=== PATIENT | male | born 1965 | race Caucasian/White ===

== ENCOUNTER 2018-03-08 16:41 | Inpatient (IN) ==
[2018-03-08] MEDS ORDERED: Naloxone 0.4 MG/ML INJ IVP PRN (20:57)
[2018-03-08] MEDS ORDERED: D5% in Water 1,000 ML IVC PRN (21:08)
[2018-03-08] MEDS ORDERED: *HR* Dextrose 50 % in Water (Syg) 50 ML SYRINGE IVP PRN (21:08)
[2018-03-08] MEDS ORDERED: Dextrose Gel 15 GM/37.5 ML TUBE PO PRN ×2 (21:08)
[2018-03-08] MEDS ORDERED: 0.9 % Sodium Chloride 1,000 ML IVC ONE (21:16)
--- NOTE | 2018-03-08 21:17 | Internal Med History&Physical ---
Date of Encounter: 03/08/18 Time of Encounter: 20:20 Internal Medicine - H&P: HPI Chief complaint: Chest pain Admitted From: Hospital to Hospital Transfer Plans for Post Hospital Care: Home History of present illness: Mr. Tariq is a 53 year old male Patient presented to [place] emergency room via ambulance after experiencing left-sided chest pain radiation to the left shoulder and neck. He states that he was working on his son's camper when he bent over to greens picker some wood after he stood up he felt dizzy, felt like his heart was racing he is not sure if he passed out but he did end up on the ground. He called the ambulance who came proximally 25 minutes later. When they arrived they found him laying in the driveway clutching his chest. He got to nitroglycerin tabs en route to the emergency room, patient states that it did help his pain. Of note patient has recent history of left rotator cuff tear status post repair and re-injury. He says he had a recent MRI done that showed some tendons that were torn. He states during this episode today that he fell onto his left shoulder exacerbating his pain. In the emergency room chest x-ray showed no acute process, CT of his cervical spine showed no acute osseous abnormalities, left shoulder x-ray showed no fractures or dislocations, CT brain without contrast showed no acute intracranial abnormalities. EKG was normal sinus rhythm with occasional PVCs with a QTC of 422. CBC was within normal limits BMP showed a BUN of 55, creatinine of 3.18 and a blood sugar of 142. His troponin was less than 0.03. He has a history of SVT, and has seen cardiologists up at [facility]. He is unsure exactly what his cardiac problems are, but did recently see a magazine repairer here at [place] yesterday. He was transferred to [facility] for further workup and management of his chest pain. Currently patient states his chest pain has nearly resolved, stating it is only mild dull pain if at all. His left shoulder still hurts, and he is having difficulty with moving it. He also states that he has a history of lymphoma status post chemotherapy and recently had his port removed. He states his magazine repairer at his appointment yesterday had scheduled an echocardiogram for Wednesday and a stress test for Wednesday. He denies shortness of breath, dizziness, nausea, vomiting, diarrhea but has had constipation for quite some time. He is on chronic pain medication after a work accident several years ago. He has not had a bowel movement in several days. Past Med Surg Social Fam HX - Past Medical History Medical history: arthritis, coronary artery disease, DVT, GERD, hyperlipidemia, kidney stones, osteoporosis, renal disease, thyroid disease, other Additional medical history: hernia Psychiatric history: anxiety, depression - Past Surgical History Surgical History: other Additional surgical history: eye surgery as a child. - Social History Smoking Status: Former smoker Smokeless Tobacco Status: Yes Alcohol use: occasionally Drug use: none - Family History Father Adopted: Yes Mother Family Member Ethnicity: Non- Living Status: Still Living Age at : 47 Cause of : illness Internal Medicine - H&P: Meds Sertraline [Zoloft] 200 mg PO DAILY 03/18/15 [History] Tamsulosin [Flomax] 0.4 mg PO DAILY 03/18/15 [History] Allopurinol [Zyloprim 100 MG] 300 mg PO DAILY 07/25/15 [History] Fenofibrate [Lofibra] 160 mg PO DAILY 07/25/15 [History] Simvastatin [Zocor] 40 mg PO HS 07/25/15 [History] Diclofenac Sodium [Voltaren] 50 mg PO Q8HR #21 tablet. 05/21/17 [Rx] HYDROcodone/Acet 5/325 mg [[place] 5-325 mg] 1 tab PO Q4H PRN #12 tab 05/21/17 [Rx ] HYDROcodone/Acet 7.5/325 mg [[place] 7.5-325 mg] 1 tab PO PRN PRN MDD QID [History] LORazepam [Ativan] 1 mg PO PRN PRN 05/21/17 [History] Metoprolol [Lopressor] 25 mg PO DAILY 05/21/17 [History] Prochlorperazine Maleate [Compazine] 10 mg PO DAILY 05/21/17 [History] SitaGLIPtin [Januvia] 100 mg PO DAILY 05/21/17 [History] Tizanidine HCl [Zanaflex] 4 mg PO TID 05/21/17 [History] 3 Allergy/AdvReac Type Severity Reaction Status Date / Time No Known Allergies Allergy Verified 05/21/17 12:01 All Systems PM: A 10-system review of systems was performed and is negative for pertinent findings except as documented above in the HPI. - Constitutional Vitals: Temp Pulse Resp BP Pulse Ox 98.0 F 77 16 142/81 93 03/08/18 19:37 03/08/18 19:37 03/08/18 19:37 03/08/18 19:37 03/08/18 19:45 General appearance: Present: cooperative, A&O X 3, pleasant, no acute distress, answers questions appropriately Exam: As above - Head Head exam: Present: normal inspection - Eye Eye exam: Present: EOMI, normal appearance - Neck Neck exam general surgery: Present: full ROM - Respiratory Respiratory exam: Present: CTAB. Absent: chest wall tenderness, decreased breath sounds, respiratory distress, wheezes - Cardiovascular Cardiovascular exam: Present: RRR. Absent: bradycardia, diastolic murmur, irregular rhythm, systolic murmur, tachycardia - GI/Abdominal GI/Abdominal exam: Present: normal bowel sounds, soft, tenderness. Absent: distended Additional comments: Mild tenderness upper quadrants - Extremities Exam Extremities exam: Present: warm, radial pulses palpable and symmetrical. Absent : calf tenderness, pedal edema, tenderness Additional comments: Left shoulder tenderness with palpation, decreased range of motion of left shoulder - Neurological Exam Neurological exam: Present: no focal deficits, strengths equal and symetr throughout. Absent: motor sensory deficit, facial droop, speech deficit - Skin Skin exam: Present: dry, normal color, warm - Assessment and plan (1) Chest pain Current Visit: No Status: Acute Assessment and plan: Initial troponin from [place] was undetectable. Currently patient's pain has nearly resolved. Patient does have history of apparently prior [place] and SVT several years ago. Has seen cardiology at [facility], as well as here at [place] with his most recent appointment yesterday. Cardiology notes not available in our system yet however. 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 Qualifiers: Chest pain type: unspecified Qualified Code(s): R07.9 - Chest pain, unspecified (2) Left shoulder pain Current Visit: Yes Status: Acute Assessment and plan: Status post rotator cuff injury and repair and apparently reinjury recently. He states recent MRI showed torn tendons in his left shoulder. Patient also fell on left shoulder during this episode. Pain medication as needed Will likely need orthopedic evaluation outpatient Qualifiers: Qualified Code(s): M25.512 - Pain in left shoulder (3) Diabetes Current Visit: Yes Status: Acute Assessment and plan: History of diabetes, patient takes Januvia as well as insulin 70/30 20u twice a day and insulin sliding scale with meals. 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 Patient has not had bowel movement in several days. MiraLAX with dose of colace tonight. Continue to monitor Qualifiers: Constipation type: unspecified constipation type Qualified Code(s): K59.00 - Constipation, unspecified (5) Acute kidney injury Current Visit: Yes Status: Acute Assessment and plan: No documented history of kidney disease in computer system, patient unsure if he has a kidney problem. GFR, creatinine and BUN within normal limits at his last admission 10 months ago. Patient does have history of rhabdo in the past about 2-1/2 years ago. IV fluid hydration Check CK level. Recheck labs in the morning (6) DVT prophylaxis Current Visit: Yes Status: Acute Assessment and plan: Heparin subcutaneous - Time Spent With Patient Total time spent is greater than 50% in coordination of care (as documented) at patient's floor/unit and/or counseling patient: Greater than 35 minutes
[2018-03-08] MEDS: Insulin DETEMIR 100 UNIT/ML X5UNITS SQ SCH (21:44)
[2018-03-08] MEDS: *HR* OxyCODONE Immed Rel 5 MG TABLET PO PRN (21:45)
[2018-03-08 22:07] LABS: Creatine Kinase 176 Units/L (30-223); Troponin I < 0.03 ng/mL (< 0.04)
[2018-03-08] MEDS: *HR* HYDROcodone/Acet 5/325 mg TABLET PO PRN (23:54)
[2018-03-09] MEDS: Insulin LISPRO 300 UNITS/3 ML VIAL SQ SCH ×4 (01:01→16:58)
[2018-03-09 03:40] LABS: Hematocrit 37.3 % (37.5-50.1); Hemoglobin 12.6 g/dL (12.9-16.9); Mean Corpuscular HGB Conc 33.8 g/dL (31.6-35.5); Mean Corpuscular Hemoglobin 30.7 pg (28.0-33.3); Mean Corpuscular Volume 90.8 fL (83.0-100.0); Mean Platelet Volume 9.9 fL (9.4-12.4); Platelet Count 139 K/mcL (140-400); Red Blood Count 4.11 M/mcL (4.19-5.50); Red Cell Distribution Width 13.6 % (11.5-14.5)
[2018-03-09 03:54] LABS: Potassium 4.7 mEq/L (3.5-5.1)
[2018-03-09] MEDS: *HR* OxyCODONE Immed Rel 5 MG TABLET PO PRN ×3 (04:10→19:23)
[2018-03-09] MEDS: *HR* Heparin 5,000 UNIT/ML VIAL SQ SCH ×2 (05:58→17:13)
[2018-03-09] MEDS: *HR* HYDROcodone/Acet 5/325 mg TABLET PO PRN ×3 (05:59→21:43)
[2018-03-09] MEDS ORDERED: 0.9 % Sodium Chloride 1,000 ML IVC ONE (06:19)
[2018-03-09] MEDS ORDERED: Regadenoson 0.4 MG/5 ML SYRINGE IVP ONE (10:11)
--- NOTE | 2018-03-09 10:24 | Internal Med Progress Note ---
Hospitalist Progress Note - Encounter Date of Encounter: 03/09/18 Time of Encounter: 10:18 - Subjective Interval History: Seen and examined at bedside today, continues to endorse intermittent chest pain with shortness of breath and diaphoresis. Continue with ACS rule out - Exam Vitals: Temp Pulse Resp BP Pulse Ox 97.5 F L 70 18 118/76 96 03/09/18 06:28 03/09/18 06:28 03/09/18 06:28 03/09/18 06:28 03/09/18 06:28 Exam: PHYSICAL EXAMINATION: GENERAL: The patient is an obese male male in no apparent distress. He is alert and oriented x3. HEENT: Head is normocephalic and atraumatic. Extraocular muscles are intact. Pupils are equal, round, and reactive to light and accommodation. NECK: Supple. No carotid bruits. No lymphadenopathy or thyromegaly. LUNGS: Clear to auscultation. HEART: Regular rate and rhythm , S1, S2 without murmur. ABDOMEN: Soft, nontender, and nondistended. Positive bowel sounds. No hepatosplenomegaly was noted. EXTREMITIES: Without any cyanosis, clubbing, rash, lesions or edema. Left shoulder tenderness to palpation, decreased left shoulder and left arm range of motion NEUROLOGIC: Cranial nerves II through XII are grossly intact. SKIN: No ulceration or induration present. - Assessment and Plan (1) Chest pain Current Visit: No Status: Acute Assessment and Plan: Initial troponin from [place] negative, Subsequent troponins as follows; less than 0.032 for 3 total negative troponins CP is described as left sided with radiation to the left neck and left shoulder Associated s/sx include diaphoresis, dyspnea, dizziness, nausea and fatigue CP resolved in ED with Nitro; but has returned and is now 2/10 and intermittent Risk factors include DM, [place] hx, Obesity, HTN, HLD, and family hx As previously follow up with [facility] cardiology for SVT; cardiology available Obtain prior medical records Continue ACS r/o Obtain TTE Stress test pending completion Continue NPO (2) Acute kidney injury Current Visit: Yes Status: Acute Assessment and Plan: NANCY, etiology unclear, no prior h/o renal disease, consider dehydration, improving with IVF, continue IVF CK WNL (3) Constipation Current Visit: Yes Status: Acute Assessment and Plan: docusate BID (4) Diabetes Current Visit: Yes Status: Acute Assessment and Plan: PER HX controlled continue LSSIC (5) Left shoulder pain Current Visit: Yes Status: Acute Assessment and Plan: s/p fall; fell to left shoulder; h/o recent shoulder surgery for rotator cuff repair per patient imaging from [facility] without fracture continues to have pain; treat with NSAIDS ROM diminished but he reports this as chronic If pain persists or worsens consider MRI imaging for further evaluation; conservative treatment for now DVT Prophylaxis: SC Heparin - Time Spent with Patient Total time spent is greater than 50% in coordination of care (as documented) at patient's floor/unit and/or counseling patient: less than 15 minutes Plan of Care Discussed with: patient Internal Medicine: Result - Labs CBC & Chem 7: 03/09/18 03:16 03/09/18 03:16 Labs: Short CBC 03/09/18 Range/Units 03:16 WBC 5.2 (4.3-11.1) K/mcL Hgb 12.6 L (12.9-16.9) g/dL Hct 37.3 L (37.5-50.1) % Plt Count 139 L (140-400) K/mcL BMP 03/09/18 03:16 Sodium 139 Potassium 4.7 Chloride 108 H Carbon Dioxide 24 BUN 48 H Creatinine 2.32 H Glucose 97 Calcium 9.0 Cardiac Enzymes 03/08/18 03/09/18 Range/Units 21:20 03:16 Troponin I < 0.03 < 0.03 (< 0.04) ng/mL Consult Discharge Plan - Plan Referrals: Jeff Cordova MD [Primary Care Provider] - (1) Chest pain Qualifiers: Chest pain type: unspecified Qualified Code(s): R07.9 - Chest pain, unspecified (3) Constipation Qualifiers: Constipation type: unspecified constipation type Qualified Code(s): K59.00 - Constipation, unspecified (4) Diabetes Qualifiers: Diabetes mellitus type: type 2 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
[2018-03-09] MEDS ORDERED: 0.9 % Sodium Chloride 1,000 ML IVC SCH (10:45)
[2018-03-09] MEDS: tiZANidine 4 MG TABLET PO SCH ×3 (12:08→21:43)
[2018-03-09] MEDS: 0.9 % Sodium Chloride 1,000 ML IVC SCH ×2 (14:02→21:45)
--- NOTE | 2018-03-09 14:17 | Cardiology Consult Note ---
Date of Encounter: 03/09/18 Time of Encounter: 14:13 Assessment and Plan (1) Abnormal stress test Current Visit: Yes Status: Acute Pharmacologic nuclear 2 day stress test showed medium sized, moderate intensity defects in inferior and inferoseptal segments consistent with ischemia. TTE LVEF 55%. Mildly dilated LV. Normal LV wall thickness and function. Mild LVDD, mild MR, mild phtn. Pt reports intermittent exertional chest pain over the past year, worsening in intensity, improved with rest. [facility] 2012 reported nonobstructive disease. Risk factors HTN, HLD, DM. Recommend [facility]. R/B/A discussed. However, pt currently has NANCY, creatinine 2.32. IVF overnight. Possible LHC tomorrow if renal function allows. Start ASA, Statin, BB. (2) Acute kidney injury Current Visit: Yes Status: Acute Creatinine 2.32 today. Hx of NANCY that resolved in 2015. IVF currently at 125mL/hr. Continue and recheck BMP in AM. Management per primary team. (3) Chest pain Current Visit: Yes Status: Acute Troponins negative, no ischemic ECG findings. Underwent 2 day stress as above, abnormal. LHC once renal function allows. Qualifiers: Chest pain type: unspecified Qualified Code(s): R07.9 - Chest pain, unspecified Discussion w patient/family: The assessment and plan as outlined above was discussed with the patient and/or family members who expressed understanding and agreement. All questions were answered. Thank you for involving us in the care of your patient. Please call with any questions. I will discuss all the above with Dr. Maza and make changes as necessary. History of Present Illness Consult date: 03/09/18 Requesting physician: Chato Watts Consult reason: Abnormal stress Chief complaint: chest pain History of present illness: Mr. Tariq is a 53 year old male with PMH of HTN, HLD, HTN, T2DM, hyperlipidemia, gout and hypokalemia, hemodynamically nonobstructive CAD [facility] 2012, B-cell lymphoma s/p chemotherapy at [facility], in remission. Presented to [place] ED for left-sided chest pain with radiation to the left shoulder and neck. He states that he was working on his son's camper when he bent over to apple picker some wood after he stood up he felt dizzy, palpitations, not sure if he passed out but he did end up on the ground. Nitro improved his pain. He has a history of SVT, and has seen cardiologists at [facility]. He saw Dr. Ny with [place] [facility]ology on 03/07 and stress and echo were ordered. Troponins negative and inpt nuclear stress test and echo were ordered. TTE LVEF 55%. Mildly dilated LV. Normal LV wall thickness and function. Mild LVDD, mild MR, mild phtn. Pharmacologic nuclear 2 day stress test showed medium sized, moderate intensity defects in inferior and inferoseptal segments consistent with ischemia. Cardiology consulted for further recs. Pt reports intermittent exertional chest pain over the past year, worsening in intensity, improved with rest. NANCY, creatinine 2.32. Past Med Surg Social Fam HX - Past Medical History Medical history: arthritis, coronary artery disease, DVT, GERD, hyperlipidemia, kidney stones, osteoporosis, renal disease, thyroid disease, other Additional medical history: hernia Psychiatric history: anxiety, depression - Past Surgical History Surgical History: other Additional surgical history: eye surgery as a child. - Social History Smoking Status: Former smoker Smokeless Tobacco Status: Yes Alcohol use: occasionally Drug use: none - Family History Father Adopted: Yes Mother Family Member Ethnicity: Non- Living Status: Still Living Age at : 47 Cause of : illness Medications and Allergies Sertraline [Zoloft] 200 mg PO DAILY 03/18/15 [History] Tamsulosin [Flomax] 0.4 mg PO DAILY 03/18/15 [History] Allopurinol [Zyloprim 100 MG] 300 mg PO DAILY 07/25/15 [History] Fenofibrate [Lofibra] 160 mg PO DAILY 07/25/15 [History] HYDROcodone/Acet 7.5/325 mg [[place] 7.5-325 mg] 1 tab PO QID 05/21/17 [History] SitaGLIPtin [Januvia] 100 mg PO DAILY 05/21/17 [History] Tizanidine HCl [Zanaflex] 4 mg PO TID 05/21/17 [History] Amlodipine Besylate 10 mg PO DAILY 03/09/18 [History] Aspirin [Adult Aspirin] 81 mg PO DAILY 03/09/18 [History] Atorvastatin [Lipitor] 40 mg PO HS 03/09/18 [History] Insulin Aspart Prot/Insuln Asp [Novolog Mix 70-30 Vial] 15 unit SQ QPM 03/09/18 [History] Insulin Aspart Prot/Insuln Asp [Novolog Mix 70-30 Vial] 20 unit SQ QAM 03/09/18 [History] Labetalol HCl 200 mg PO TID 03/09/18 [History] Levothyroxine [Synthroid] 225 mcg PO QAM 03/09/18 [History] Magnesium Oxide [Magnesium] 400 mg PO DAILY 03/09/18 [History] 3 Allergy/AdvReac Type Severity Reaction Status Date / Time No Known Allergies Allergy Verified 05/21/17 12:01 All Systems Review: The remainder of the systems were reviewed and are negative - Cardiovascular Cardiovascular: chest pain with exertion, diaphoresis, dyspnea on exertion, radiating jaw, neck or arm pain, lightheadedness, palpitations, syncope - Respiratory Respiratory: dyspnea Physical Examination Vital Signs, Last 4 Hours Temp Pulse Resp BP Pulse Ox 03/09/18 12:10 97.4 F L 75 16 133/92 97 Vital Signs Temp Pulse Resp BP Pulse Ox 03/09/18 12:10 97.4 F L 75 16 133/92 97 03/09/18 06:28 97.5 F L 70 18 118/76 96 03/08/18 23:27 97.8 F 80 16 120/69 94 03/08/18 19:45 93 03/08/18 19:37 98.0 F 77 16 142/81 96 Intake and Output 03/08/18 03/09/18 03/09/18 23:59 07:59 15:59 Intake Total 1999 Output Total 650 / 650 250 / 250 Balance 1350 / 1350 -250 / -250 Intake: IV Fluids 1999 0.9 % Sodium Chloride 1,000 ML 1999 @ 999 mls/hr IVC .Q1H1M ONE Rx# :[id number] Output: Urine 650 / 650 250 / 250 Other: Weight 129.7 kg Blood Glucose* 113 98 88 General: Conversant, No Apparent Distress HEENT: Atraumatic, Normocephaly, Mucus Membranes Moist Neck: No JVD, Normal carotid pulses Cardiac: Reg Rate and Rhythm, Normal S1 and S2, No Murmur Lungs: Normal Breath Sounds, No Wheeze, Rales, Rhonchi Neuro: Alert and responsive, No focal deficits noted Abdomen: Soft, Non-Tender Skin: No rashes noted on visualized skin Musculoskeletal: No Chest Wall Tenderness Extremities: No Clubbing, No Cyanosis, No Edema, Normal Pulses Results 03/09/18 03:16 03/09/18 03:16 Lab Results 03/08/18 03/09/18 03/09/18 21:20 03:16 03:16 WBC 5.2 Hgb 12.6 L Hct 37.3 L Plt Count 139 L Sodium Potassium Chloride Carbon Dioxide BUN Creatinine Glucose Calcium Troponin I < 0.03 < 0.03 03/09/18 03:16 WBC Hgb Hct Plt Count Sodium 139 Potassium 4.7 Chloride 108 H Carbon Dioxide 24 BUN 48 H Creatinine 2.32 H Glucose 97 Calcium 9.0 Troponin I Short CBC 03/09/18 Range/Units 03:16 WBC 5.2 (4.3-11.1) K/mcL Hgb 12.6 L (12.9-16.9) g/dL Hct 37.3 L (37.5-50.1) % Plt Count 139 L (140-400) K/mcL BMP 03/09/18 Range/Units 03:16 Sodium 139 (136-145) mEq/L Potassium 4.7 (3.5-5.1) mEq/L Chloride 108 H (98-107) mEq/L Carbon Dioxide 24 (23-29) mEq/L BUN 48 H (6-20) mg/dL Creatinine 2.32 H (0.70-1.30) mg/dL Glucose 97 (70-105) mg/dL Calcium 9.0 (8.6-10.3) mg/dL Cardiac Enzymes 03/09/18 03/08/18 Range/Units 03:16 21:20 Troponin I < 0.03 < 0.03 (< 0.04) ng/mL Impressions Echocardiogram 03/09/18 10:00 Impressions: LVEF 55%. Mildly dilated left ventricle. Normal LV wall thickness and function. Mild left ventricular diastolic dysfunction. Atypical septal motion consistent with bundle branch block. Normal right ventricular structure and function. Mild mitral regurgitation. Mild pulmonary hypertension. Left Ventricular Wall Motion: Rest Echo Findings All wall segments showed normal motion. Findings: Study Quality * Technically adequate exam. ECG Findings * Sinus rhythm with BBB, PVCs. Left Ventricle * LVEF 55%. * Mildly dilated left ventricle. * Normal LV wall thickness and function. * Mild left ventricular diastolic dysfunction. * Atypical septal motion consistent with bundle branch block. Right Ventricle * Normal right ventricular structure and function. Left Atrium * Moderately dilated left atrium. Right Atrium * Mildly dilated right atrium. Aortic Valve * Aortic valve not well visualized. * No aortic regurgitation. * No aortic stenosis. Mitral Valve * Normal mitral valve structure. * Mild mitral regurgitation. * No mitral stenosis. Tricuspid Valve * Normal tricuspid valve structure and function. * Trace tricuspid regurgitation. * Mild pulmonary hypertension. Pulmonic Valve * Pulmonic valve is not well visualized. Aorta * Normally sized aortic root. Pericardium * The pericardium appears normal. IVC * Normal IVC dimensions and inspiratory collapse. Pulmonary Artery * Normal visualized portions of the main pulmonary artery. Active Medications Hydrocodone Bitart/Acetaminophen ([place] 5-325 Mg) 1 tab PO Q6H PRN PRN Reason: Moderate Pain Stop: 09/07/18 23:32 Last Admin: 03/09/18 05:59 Dose: 1 tab Allopurinol (Zyloprim) 300 mg PO DAILY [facility] Stop: 09/08/18 09:01 Last Admin: 03/09/18 12:08 Dose: 300 mg Dextrose/Water (Dextrose 50% (Syg)) 25 ml IVP AD PRN PRN Reason: Hypoglycemia Stop: 09/07/18 21:09 Docusate Sodium (Colace) 100 mg PO BID [facility] PRN Reason: Protocol Stop: 09/07/18 21:16 Last Admin: 03/09/18 12:08 Dose: 100 mg Glucagon (Glucagen) 1 mg IM ONCE PRN PRN Reason: Hypoglycemia Stop: 09/07/18 21:09 Glucose (Gluctose) 15 gm PO ONCE PRN PRN Reason: Hypoglycemia Stop: 09/07/18 21:09 Glucose (Gluctose) 30 gm PO ONCE PRN PRN Reason: Hypoglycemia Stop: 09/07/18 21:09 Heparin Sodium (Porcine) (Heparin) 5,000 unit SQ Q12HCO [facility] Stop: 09/08/18 06:01 Last Admin: 03/09/18 05:58 Dose: 5,000 unit Dextrose (Dextrose 5%) 1,000 mls @ 100 mls/hr IVC .Q10H PRN PRN Reason: HYPOGLYCEMIA Stop: 09/07/18 21:09 Sodium Chloride (0.9 % Sodium Chloride) 1,000 mls @ 125 mls/hr IVC .Q8H [facility] Stop: 09/08/18 13:45 Last Admin: 03/09/18 14:02 Dose: Not Given Insulin Detemir (Levemir) 15 unit SQ HS [facility] Stop: 09/07/18 21:16 Last Admin: 03/08/18 21:44 Dose: 15 unit Insulin Human Lispro (Humalog) 0 units SQ Q6HR [facility] PRN Reason: Protocol Stop: 09/08/18 00:01 Last Admin: 03/09/18 12:51 Dose: Not Given Levothyroxine Sodium (Synthroid) 225 mcg PO 0630 [facility] Stop: 09/08/18 06:31 Last Admin: 03/09/18 05:59 Dose: 225 mcg Naloxone HCl (Narcan) 0.4 mg IVP Q2MIN PRN PRN Reason: SEE COMMENTS Stop: 09/07/18 20:58 Oxycodone HCl (Roxicodone) 10 mg PO Q6HR PRN PRN Reason: Severe Pain Stop: 09/07/18 21:03 Last Admin: 03/09/18 12:14 Dose: 10 mg Polyethylene Glycol (Miralax) 17 gm PO DAILY [facility] Stop: 09/07/18 21:16 Last Admin: 03/09/18 12:08 Dose: 17 gm Tizanidine HCl (Zanaflex) 4 mg PO TID [facility] Stop: 09/08/18 09:01 Last Admin: 03/09/18 14:04 Dose: Not Given - Imaging and Cardiology Stress Test: report reviewed Echo: report reviewed - EKG Interpretation EKG results cardiology: personally reviewed (SR), other (12 hr tele AVG HR 71, SR, occasional PVC couplets noted. Otherwise, no significant pauses or arrhythmias.) Consult Discharge Plan - Plan Referrals: Jeff Cordova MD [Primary Care Provider] -
[2018-03-09] MEDS: Aspirin 81 MG TAB.CHEW PO SCH (15:07)
[2018-03-09] MEDS: Insulin DETEMIR 100 UNIT/ML X5UNITS SQ SCH (21:42)
[2018-03-10] MEDS: Insulin LISPRO 300 UNITS/3 ML VIAL SQ SCH ×4 (00:24→17:30)
[2018-03-10] MEDS: *HR* OxyCODONE Immed Rel 5 MG TABLET PO PRN ×3 (01:29→20:23)
[2018-03-10] MEDS: *HR* HYDROcodone/Acet 5/325 mg TABLET PO PRN ×2 (03:51→15:23)
[2018-03-10] MEDS: 0.9 % Sodium Chloride 1,000 ML IVC SCH ×3 (05:06→20:47)
[2018-03-10] MEDS: *HR* Heparin 5,000 UNIT/ML VIAL SQ SCH ×2 (05:10→17:35)
[2018-03-10 06:40] LABS: Basophils % 0.9 %; Eosinophils # 0.4 K/mcL (0.0-0.6); Eosinophils % 8.4 %; Hematocrit 36.2 % (37.5-50.1); Hemoglobin 11.9 g/dL (12.9-16.9); Immature Granulocytes % 1.1 % (0-4); Lymphocytes # 0.7 K/mcL (0.6-4.6); Lymphocytes % 15.7 %; Mean Corpuscular HGB Conc 32.9 g/dL (31.6-35.5); Mean Corpuscular Hemoglobin 30.7 pg (28.0-33.3); Mean Corpuscular Volume 93.3 fL (83.0-100.0); Mean Platelet Volume 9.9 fL (9.4-12.4); Monocytes # 0.4 K/mcL (0.0-1.3); Platelet Count 124 K/mcL (140-400); Red Blood Count 3.88 M/mcL (4.19-5.50); Red Cell Distribution Width 13.7 % (11.5-14.5); Segmented Neutrophils % 64.9 %
[2018-03-10 07:00] LABS: Calcium 8.6 mg/dL (8.6-10.3); Potassium 5.3 mEq/L (3.5-5.1)
[2018-03-10] MEDS: tiZANidine 4 MG TABLET PO SCH ×3 (09:00→20:24)
--- NOTE | 2018-03-10 13:15 | Cardiology Progress Note ---
Date of Encounter: 03/10/18 Time of Encounter: 12:50 Assessment and Plan (1) Abnormal stress test Current Visit: Yes Status: Acute Pharmacologic nuclear 2 day stress test showed medium sized, moderate intensity defects in inferior and inferoseptal segments consistent with ischemia. TTE LVEF 55%. Mildly dilated LV. Normal LV wall thickness and function. Mild LVDD, mild MR, mild phtn. Pt reports intermittent exertional chest pain over the past year, worsening in intensity. Minimal chest pain overnight. [facility] 2012 reported nonobstructive disease. Risk factors HTN, HLD, DM. Recommend [facility]. R/B/A discussed. [facility] when stable from NANCY standpoint. Scr improving. 1.9 today. Scr 0.87 05/2017. ASA, Statin, BB. Discussion w patient/family: The assessment and plan as outlined above was discussed with the patient and/or family members who expressed understanding and agreement. All questions were answered. Thank you for involving us in the care of your patient. Please call with any questions. Subjective Principal diagnosis: Chest pain, abnormal stress test Interval history: Reports minimal chest pain. resting quietly. Objective Vital Signs, Last 4 Hours Temp Pulse Resp BP Pulse Ox 03/10/18 11:41 97.6 F 68 17 118/75 98 General: Conversant, No Apparent Distress HEENT: Atraumatic, Normocephaly, Mucus Membranes Moist Neck: No JVD, Normal carotid pulses Cardiac: Reg Rate and Rhythm, Normal S1 and S2, No Murmur Lungs: Normal Breath Sounds, No Wheeze, Rales, Rhonchi Neuro: Alert and responsive, No focal deficits noted Abdomen: Soft, Non-Tender Skin: No rashes noted on visualized skin Musculoskeletal: No Chest Wall Tenderness Extremities: No Clubbing, No Cyanosis, No Edema, Normal Pulses Results 03/10/18 05:47 03/10/18 05:47 Lab Results 03/10/18 03/10/18 05:47 05:47 WBC 4.7 Hgb 11.9 L Hct 36.2 L Plt Count 124 L Sodium 140 Potassium 5.3 H Chloride 111 H Carbon Dioxide 22 L BUN 39 H Creatinine 1.90 H Glucose 79 Calcium 8.6 - Imaging and Cardiology Stress Test: report reviewed Echo: report reviewed - EKG Interpretation EKG results cardiology: personally reviewed Consult Discharge Plan - Plan Referrals: Jeff Cordova MD [Primary Care Provider] -
[2018-03-10] MEDS: Aspirin 81 MG TAB.CHEW PO SCH (13:44)
--- NOTE | 2018-03-10 14:14 | Electrocardiograph Report ---
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
--- NOTE | 2018-03-10 14:14 | Electrocardiograph Report ---
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
--- NOTE | 2018-03-10 15:46 | Internal Med Progress Note ---
Hospitalist Progress Note - Encounter Date of Encounter: 03/10/18 Time of Encounter: 15:44 - Subjective Interval History: Seen and examined at bedside today, continues to endorse intermittent chest pain with shortness of breath and diaphoresis, none at this time. - Exam Vitals: Temp Pulse Resp BP Pulse Ox 97.6 F 68 17 118/75 98 03/10/18 11:41 03/10/18 11:41 03/10/18 11:41 03/10/18 11:41 03/10/18 11:41 Exam: PHYSICAL EXAMINATION: GENERAL: The patient is an obese male male in no apparent distress. He is alert and oriented x3. HEENT: Head is normocephalic and atraumatic. Extraocular muscles are intact. Pupils are equal, round, and reactive to light and accommodation. NECK: Supple. No carotid bruits. No lymphadenopathy or thyromegaly. LUNGS: Clear to auscultation B/L AP&L. HEART: Regular rate and rhythm , S1, S2 without murmur. ABDOMEN: Soft, nontender, and nondistended. Positive bowel sounds. No hepatosplenomegaly was noted. EXTREMITIES: Without any cyanosis, clubbing, rash, lesions or edema. Left shoulder tenderness to palpation, decreased left shoulder and left arm range of motion NEUROLOGIC: Cwithour facial droop or slurred speech SKIN: No ulceration or induration present. - Assessment and Plan (1) Chest pain Current Visit: Yes Status: Acute Assessment and Plan: Initial troponin from [place] negative, Subsequent troponins as follows; less than 0.032 for 3 total negative troponins CP is described as left sided with radiation to the left neck and left shoulder Associated s/sx include diaphoresis, dyspnea, dizziness, nausea and fatigue CP resolved in ED with Nitro; but has returned and is now 2/10 and intermittent Risk factors include DM, [place] hx, Obesity, HTN, HLD, and family hx As previously follow up with [facility] cardiology for SVT; cardiology available Obtain prior medical records Continue ACS r/o Obtain TTE Stress test pending completion Continue NPO 03/10--intermittent chest pain persists. Cardio seeing in consultation. Plan for LHC when Scr improves. 1.9 today. (2) Acute kidney injury Current Visit: Yes Status: Acute Assessment and Plan: NANCY, etiology unclear,likely pre renal. no prior h/o renal disease, continue IVF CK WNL daily labs (3) Constipation Current Visit: Yes Status: Acute Assessment and Plan: docusate BID (4) Diabetes Current Visit: Yes Status: Acute Assessment and Plan: Per hx controlled continue LSSIC (5) Left shoulder pain Current Visit: Yes Status: Acute Assessment and Plan: s/p fall; fell to left shoulder; h/o recent shoulder surgery for rotator cuff repair per patient imaging from [facility] without fracture continues to have pain; ROM diminished but he reports this as chronic If pain persists or worsens consider MRI imaging for further evaluation; conservative treatment for now DVT Prophylaxis: SC Heparin - Time Spent with Patient Total time spent is greater than 50% in coordination of care (as documented) at patient's floor/unit and/or counseling patient: less than 15 minutes Plan of Care Discussed with: patient Internal Medicine: Result - Labs CBC & Chem 7: 03/10/18 05:47 03/10/18 05:47 Labs: Short CBC 03/10/18 Range/Units 05:47 WBC 4.7 (4.3-11.1) K/mcL Hgb 11.9 L (12.9-16.9) g/dL Hct 36.2 L (37.5-50.1) % Plt Count 124 L (140-400) K/mcL Neutrophils # 3.0 (1.6-8.9) K/mcL BMP 03/10/18 05:47 Sodium 140 Potassium 5.3 H Chloride 111 H Carbon Dioxide 22 L BUN 39 H Creatinine 1.90 H Glucose 79 Calcium 8.6 Consult Discharge Plan - Plan Referrals: Jeff Cordova MD [Primary Care Provider] - (1) Chest pain Qualifiers: Chest pain type: unspecified Qualified Code(s): R07.9 - Chest pain, unspecified (3) Constipation Qualifiers: Constipation type: unspecified constipation type Qualified Code(s): K59.00 - Constipation, unspecified (4) Diabetes Qualifiers: Diabetes mellitus type: type 2 Diabetes mellitus intermediate card tender insulin use: with intermediate card tender use Diabetes mellitus complication status: without complication Qualified Code(s): E11.9 - Type 2 diabetes mellitus without complications; Z79.4 - penitentiary (current) use of insulin (5) Left shoulder pain Qualifiers: Chronicity: acute Qualified Code(s): M25.512 - Pain in left shoulder
[2018-03-10] MEDS ORDERED: Ondansetron 4 MG/2 ML VIAL IVP ONE (20:20)
[2018-03-10] MEDS: Insulin DETEMIR 100 UNIT/ML X5UNITS SQ SCH (20:25)
[2018-03-10] MEDS ORDERED: *HR* Promethazine 25 MG/ML VIAL IVP ONE (21:28)
[2018-03-11] MEDS: Insulin LISPRO 300 UNITS/3 ML VIAL SQ SCH ×4 (00:24→18:29)
[2018-03-11] MEDS: *HR* HYDROcodone/Acet 5/325 mg TABLET PO PRN ×2 (00:28→20:29)
[2018-03-11] MEDS: 0.9 % Sodium Chloride 1,000 ML IVC SCH ×3 (04:55→23:47)
[2018-03-11] MEDS: *HR* Heparin 5,000 UNIT/ML VIAL SQ SCH ×2 (04:56→18:29)
[2018-03-11 05:43] LABS: Basophils % 0.9 %; Eosinophils # 0.4 K/mcL (0.0-0.6); Eosinophils % 8.6 %; Hematocrit 37.1 % (37.5-50.1); Hemoglobin 11.9 g/dL (12.9-16.9); Immature Granulocytes % 1.4 % (0-4); Lymphocytes # 0.8 K/mcL (0.6-4.6); Lymphocytes % 17.7 %; Mean Corpuscular HGB Conc 32.1 g/dL (31.6-35.5); Mean Corpuscular Hemoglobin 30.4 pg (28.0-33.3); Mean Corpuscular Volume 94.6 fL (83.0-100.0); Mean Platelet Volume 10.1 fL (9.4-12.4); Monocytes # 0.4 K/mcL (0.0-1.3); Monocytes % 9.8 %; Neutrophils # 2.7 K/mcL (1.6-8.9); Platelet Count 132 K/mcL (140-400); Red Blood Count 3.92 M/mcL (4.19-5.50); Red Cell Distribution Width 13.5 % (11.5-14.5); Segmented Neutrophils % 61.6 %
[2018-03-11 05:53] LABS: Calcium 8.7 mg/dL (8.6-10.3); Potassium 5.1 mEq/L (3.5-5.1)
[2018-03-11] MEDS: Aspirin 81 MG TAB.CHEW PO SCH (08:53)
[2018-03-11] MEDS: tiZANidine 4 MG TABLET PO SCH (08:53)
[2018-03-11] MEDS ORDERED: Naloxone 0.4 MG/ML INJ IVP PRN (11:31)
--- NOTE | 2018-03-11 11:35 | Internal Med Progress Note ---
Hospitalist Progress Note - Encounter Date of Encounter: 03/11/18 Time of Encounter: 11:30 - Subjective Interval History: Seen and examined at bedside today. Chest pain free currently. - Exam Vitals: Temp Pulse Resp BP Pulse Ox 97.9 F 64 15 122/81 97 03/11/18 06:59 03/11/18 06:59 03/11/18 06:59 03/11/18 06:59 03/11/18 06:59 Exam: PHYSICAL EXAMINATION: GENERAL: The patient is an obese male male in no apparent distress. He is alert and oriented x3. HEENT: Head is normocephalic and atraumatic. Extraocular muscles are intact. Pupils are equal, round, and reactive to light and accommodation. NECK: Supple. No carotid bruits. No lymphadenopathy or thyromegaly. LUNGS: CTA B/L AP&L. HEART: Regular rate and rhythm , S1, S2 without murmurs rubs or gallops. ABDOMEN: Soft, nontender, and nondistended. Positive bowel sounds. No hepatosplenomegaly was noted. EXTREMITIES: Without any cyanosis, clubbing, rash, lesions or edema. Left shoulder tenderness to palpation NEUROLOGIC: without facial droop or slurred speech SKIN: No ulceration or induration present. - Assessment and Plan (1) Chest pain Current Visit: Yes Status: Acute Assessment and Plan: Initial troponin from [place] negative, Subsequent troponins as follows; less than 0.032 for 3 total negative troponins CP is described as left sided with radiation to the left neck and left shoulder Associated s/sx include diaphoresis, dyspnea, dizziness, nausea and fatigue Found in his driveway by EMS clutching his chest CP resolved in ED with Nitro; but has returned and is now 2/10 and intermittent Risk factors include DM, [place] hx, Obesity, HTN, HLD, and family hx As previously follow up with [facility] cardiology for SVT; cardiology available Obtain prior medical records Continue ACS r/o Obtain TTE Stress test pending completion Continue NPO 03/10--intermittent chest pain persists. Cardio seeing in consultation. Plan for LHC when Scr improves. 1.9 today. 03/11-- abnormal stress, needs LHC, unable to complete 2/2 NANCY vs CKD. Obtain [facility] medical records to evaluate baseline renal function. Plan for LHC as renal function improves (2) Acute kidney injury Current Visit: Yes Status: Acute Assessment and Plan: NANCY, etiology unclear,likely pre renal. no prior h/o renal disease, continue IVF CK WNL daily labs 03/11-- Scr improving 1.7 today. Unclear if true NANCY. 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 Patient's baseline renal function per review of [facility] notes 1.1-1.3. However, at [place] on 01/27/18 from [facility] his renal function was 1.7. We are currently the same today at 1.7. Check urine Na and Urine protein/creatinine ratio. Consult nephrology. Thank you. Refrain from cardiac catheter until deemed appropriate by cardiology and nephrology. (3) Constipation Current Visit: Yes Status: Acute Assessment and Plan: docusate BID (4) Diabetes Current Visit: Yes Status: Acute Assessment and Plan: Per hx stable continue LSSIC (5) Left shoulder pain Current Visit: Yes Status: Acute Assessment and Plan: s/p fall; fell to left shoulder; h/o recent shoulder surgery for rotator cuff repair per patient imaging from [facility] without fracture continues to have pain; ROM diminished but he reports this as chronic If pain persists or worsens consider MRI imaging for further evaluation; conservative treatment for now 03/11--improving DVT Prophylaxis: SC Heparin - Time Spent with Patient Total time spent is greater than 50% in coordination of care (as documented) at patient's floor/unit and/or counseling patient: less than 15 minutes Plan of Care Discussed with: patient Internal Medicine: Result - Labs CBC & Chem 7: 03/11/18 04:38 03/11/18 04:38 Labs: Short CBC 03/11/18 Range/Units 04:38 WBC 4.4 (4.3-11.1) K/mcL Hgb 11.9 L (12.9-16.9) g/dL Hct 37.1 L (37.5-50.1) % Plt Count 132 L (140-400) K/mcL Neutrophils # 2.7 (1.6-8.9) K/mcL BMP 03/11/18 04:38 Sodium 140 Potassium 5.1 Chloride 112 H Carbon Dioxide 24 BUN 32 H Creatinine 1.70 H Glucose 81 Calcium 8.7 Consult Discharge Plan - Plan Referrals: Jeff Cordova MD [Primary Care Provider] - (1) Chest pain Qualifiers: Chest pain type: unspecified Qualified Code(s): R07.9 - Chest pain, unspecified (3) Constipation Qualifiers: Constipation type: unspecified constipation type Qualified Code(s): K59.00 - Constipation, unspecified (4) Diabetes Qualifiers: Diabetes mellitus type: type 2 Diabetes mellitus intermediate insulin use: with intermediate use Diabetes mellitus complication status: without complication Qualified Code(s): E11.9 - Type 2 diabetes mellitus without complications; Z79.4 - penitentiary (current) use of insulin (5) Left shoulder pain Qualifiers: Chronicity: acute Qualified Code(s): M25.512 - Pain in left shoulder
--- NOTE | 2018-03-11 13:18 | Cardiology Progress Note ---
Date of Encounter: 03/11/18 Time of Encounter: 13:14 Assessment and Plan (1) Abnormal stress test Current Visit: Yes Status: Acute Pharmacologic nuclear 2 day stress test showed medium sized, moderate intensity defects in inferior and inferoseptal segments consistent with ischemia. TTE LVEF 55%. Mildly dilated LV. Normal LV wall thickness and function. Mild LVDD, mild MR, mild phtn. Pt reports intermittent exertional chest pain over the past year, worsening in intensity. Minimal chest pain overnight. [facility] 2012 reported nonobstructive disease. Risk factors HTN, HLD, DM. Recommend [facility]. R/B/A discussed. LHC when stable from NANCY standpoint. Scr improving. 1.7 today. Scr 0.87 05/2017. reports that he did see a cost controller at [facility] in January. She doesn't know what his kidney function was. Recommend ordering records. Consider nephrology consult. Cardiology will monitor peripherally. Possible LHC Wednesday if able. ASA, Statin, BB. (2) Chest pain Current Visit: Yes Status: Acute Troponins negative, no ischemic ECG findings. Underwent 2 day stress as above, abnormal. LHC once renal function allows. Qualifiers: Chest pain type: unspecified Qualified Code(s): R07.9 - Chest pain, unspecified Discussion w patient/family: The assessment and plan as outlined above was discussed with the patient and/or family members who expressed understanding and agreement. All questions were answered. Thank you for involving us in the care of your patient. Please call with any questions. Subjective Principal diagnosis: Chest pain, abnormal stress test Interval history: Reports minimal chest pain. resting quietly. Objective Vital Signs, Last 4 Hours Temp Pulse Resp BP Pulse Ox 03/11/18 11:34 97.3 F L 68 15 114/76 97 General: Conversant, No Apparent Distress, Other (Drwosy, noted snoring at times ) HEENT: Atraumatic, Normocephaly, Mucus Membranes Moist Neck: No JVD, Normal carotid pulses Cardiac: Reg Rate and Rhythm, Normal S1 and S2, No Murmur Lungs: Normal Breath Sounds, No Wheeze, Rales, Rhonchi Neuro: No focal deficits noted Abdomen: Soft, Non-Tender Skin: No rashes noted on visualized skin Musculoskeletal: No Chest Wall Tenderness Extremities: No Clubbing, No Cyanosis, No Edema, Normal Pulses Results 03/11/18 04:38 03/11/18 04:38 Lab Results 03/11/18 03/11/18 04:38 04:38 WBC 4.4 Hgb 11.9 L Hct 37.1 L Plt Count 132 L Sodium 140 Potassium 5.1 Chloride 112 H Carbon Dioxide 24 BUN 32 H Creatinine 1.70 H Glucose 81 Calcium 8.7 - Imaging and Cardiology Echo: report reviewed Cardiac cath: report reviewed - EKG Interpretation EKG results cardiology: personally reviewed Consult Discharge Plan - Plan Referrals: Jeff Cordova MD [Primary Care Provider] -
[2018-03-11 14:32] LABS: Thyroid Stimulating Hormone 29.376 mcIU/mL (0.340-5.600)
--- NOTE | 2018-03-11 19:10 | Nephrology Consult Note ---
Date of Encounter: 03/11/18 Time of Encounter: 16:00 Assessment and Plan (1) Acute kidney injury Current Visit: Yes Status: Acute Elevated SCr responding to IVF suggestive of pre-renal state Agree with continued IVF for now Discussed pros and cons of iv contrast exposure with [facility] with patient and and they are willing to procced with [facility] by wednesday Continue to avoid nephrotoxins if possible UOP noted [place] 2775cc in the past 24hrs which is great Urine sodium pending CPK WNL, will check uric acid level and LDH as well (2) Glomerulonephritis Current Visit: No Status: Acute Will order uA and urine for proteinuria Discussed goals of care and the need for continued followup outpatient for aggressive treatment of his condition (3) Abnormal stress test Current Visit: Yes Status: Acute Per cardio but would supprot LHC in this patient even if renal fxn not completely at baseline which is 1.1 to 1.3. Currently at 1.7 History of Present Illness - Reason for Consult Consult date: 03/11/18 Acute Kidney Injury, Chronic Kidney Disease, glomerulonephritis Requesting physician: Chato Watts - History of Present Illness 53 y o male with PMH of Lymphoma s/p chemo '16, HTN, DM, CAD, HLN, gout and fibrillary GN with nephrotic syndrome s/p cyclophosphamide (discontinued to to side effects and rituxan (also discontined due to side effects) followed by primary elementary reading tutor; Dr Dean and secondary; [facility] GN clinic admitted with chest pain s/p similar hospital stay at [facility] with no cardiac workup. Cardiology already on board for abnormal stress test. Renal consulted for eliane optimization pending LHC and elevated SCr currently at 1.7, GFR 43 peak of 2.32 , GFR 30 this hospital stay improving with IVF. Baseline noted per [facility] records around 1.1 to 1.3. Pt seen and examined and was not a very good historian. The was helpful but most of the history obtained from [facility] records. Past Med Surg Social Fam HX - Past Medical History Medical history: arthritis, coronary artery disease, DVT, GERD, hyperlipidemia, kidney stones, osteoporosis, renal disease, thyroid disease, other Additional medical history: hernia Psychiatric history: anxiety, depression - Past Surgical History Surgical History: other Additional surgical history: eye surgery as a child. - Social History Smoking Status: Former smoker Smokeless Tobacco Status: Yes Alcohol use: occasionally Drug use: none - Family History Father Adopted: Yes Mother Family Member Ethnicity: Non- Living Status: Still Living Age at : 47 Cause of : illness Medications and Allergies Sertraline [Zoloft] 200 mg PO DAILY 03/18/15 [History] Tamsulosin [Flomax] 0.4 mg PO DAILY 03/18/15 [History] Allopurinol [Zyloprim 100 MG] 300 mg PO DAILY 07/25/15 [History] Fenofibrate [Lofibra] 160 mg PO DAILY 07/25/15 [History] HYDROcodone/Acet 7.5/325 mg [[place] 7.5-325 mg] 1 tab PO QID 05/21/17 [History] SitaGLIPtin [Januvia] 100 mg PO DAILY 05/21/17 [History] Tizanidine HCl [Zanaflex] 4 mg PO TID 05/21/17 [History] Amlodipine Besylate 10 mg PO DAILY 03/09/18 [History] Aspirin [Adult Aspirin] 81 mg PO DAILY 03/09/18 [History] Atorvastatin [Lipitor] 40 mg PO HS 03/09/18 [History] Insulin Aspart Prot/Insuln Asp [Novolog Mix 70-30 Vial] 15 unit SQ QPM 03/09/18 [History] Insulin Aspart Prot/Insuln Asp [Novolog Mix 70-30 Vial] 20 unit SQ QAM 03/09/18 [History] Labetalol HCl 200 mg PO TID 03/09/18 [History] Levothyroxine [Synthroid] 225 mcg PO QAM 03/09/18 [History] Magnesium Oxide [Magnesium] 400 mg PO DAILY 03/09/18 [History] 3 Allergy/AdvReac Type Severity Reaction Status Date / Time No Known Allergies Allergy Verified 05/21/17 12:01 Review of Systems All Systems review (narrative): The rest of the systems(10) are negative Constitutional: fatigue (reports), fever(s) (denies) Cardiovascular: chest pain (denies currently but did have), leg edema (improved) Respiratory: dyspnea (denies) Exam - Vital Signs Vital signs: Initial Vital Signs Temp Pulse Resp BP Pulse Ox 98.0 F 77 16 142/81 96 03/08/18 19:37 03/08/18 19:37 03/08/18 19:37 03/08/18 19:37 10/02/18 19:37 Vital Signs - Last 8 Hours Temp Pulse Resp BP Pulse Ox 03/11/18 18:57 98.5 F 45 16 146/82 97 03/11/18 14:58 98.2 F 32 16 110/62 94 03/11/18 11:34 97.3 F L 68 15 114/76 97 Intake and Output 03/11/18 03/11/18 03/11/18 07:59 15:59 23:59 Intake Total 1000 / 1000 1240 / 1240 Output Total 1550 / 1550 100 / 100 Balance -550 / -550 1140 / 1140 Intake: IV Fluids 1000 / 1000 1000 / 1000 0.9 % Sodium Chloride 1,000 ML 1000 / 1000 1000 / 1000 @ 125 mls/hr IVC .Q8H ZANE Rx#: [id number] Oral 240 / 240 Output: Urine 1550 / 1550 100 / 100 Other: Meal Lunch Percent of Meal Consumed 60% Weight 133 kg Blood Glucose* 74 100 Patient Weight 03/11/18 23:59 Weight 133 kg - General Appearance General appearance: well-developed, well-nourished EENT: ATNC, mucous membranes moist Neck: no JVD, supple Respiratory: clear (ant bilat) Cardiology: no edema, normal S1, normal S2 Gastrointestinal: no tenderness, no guarding Integumentary: warm and dry Additional Comments: multiple upper body tattoos noted Neurologic: no focal deficit Musculoskeletal: no deformities Psychiatric: mood/affect appropriate, cooperative Results - Lab Results 03/11/18 04:38 03/11/18 04:38 Most recent lab results Calcium 8.7 mg/dL (8.6-10.3) 03/11/18 04:38 Consult Discharge Plan - Plan Referrals: Jeff Cordova MD [Primary Care Provider] -
[2018-03-11] MEDS ORDERED: Ondansetron 4 MG/2 ML VIAL ONE (20:24)
[2018-03-11] MEDS: Insulin DETEMIR 100 UNIT/ML X5UNITS SQ SCH (20:30)
[2018-03-11] MEDS ORDERED: Ondansetron 4 MG/2 ML VIAL IVP PRN (21:00)
[2018-03-11 21:12] LABS: Bilirubin,Urine Negative (Negative); Blood,Urine Trace (Negative); Clarity,Urine Clear (Clear); Color,Urine Yellow (Yellow); Glucose,Urine (UA) Normal (Normal); Ketones,Urine Negative (Negative); Leukocyte Esterase,Urine Negative (Negative); Nitrite,Urine Negative (Negative); PH,Urine 6.5 pH Units (5.0-8.0); Protein,Urine >=1000 mg/dL (Neg-Trace); Specific Gravity,Urine 1.015 (1.010-1.025); Urobilinogen,Urine Normal (Normal)
[2018-03-11 21:16] LABS: Bacteria,Urine None Seen per hpf (None-Few); Hyaline Casts,Urine None Seen per lpf (None-Few); Squamous Epithelial Cell,Urine Moderate per lpf (None-Few); WBC,Urine 0-3 per hpf (0-3)
[2018-03-11 21:35] LABS: Creatinine,Urine 78 mg/dL; Microalbumin,Urine > 1350 mg/L
[2018-03-12] MEDS ORDERED: Ondansetron 4 MG/2 ML VIAL IVP SCH
[2018-03-12] MEDS: Insulin LISPRO 300 UNITS/3 ML VIAL SQ SCH ×4 (00:27→17:57)
[2018-03-12] MEDS: *HR* HYDROcodone/Acet 7.5/325 mg TABLET PO PRN ×3 (02:47→16:29)
[2018-03-12 05:17] LABS: Basophils % 0.9 %; Eosinophils # 0.4 K/mcL (0.0-0.6); Eosinophils % 7.9 %; Hematocrit 35.3 % (37.5-50.1); Hemoglobin 11.6 g/dL (12.9-16.9); Immature Granulocytes % 0.9 % (0-4); Lymphocytes # 0.9 K/mcL (0.6-4.6); Lymphocytes % 19.3 %; Mean Corpuscular HGB Conc 32.9 g/dL (31.6-35.5); Mean Corpuscular Hemoglobin 30.7 pg (28.0-33.3); Mean Corpuscular Volume 93.4 fL (83.0-100.0); Mean Platelet Volume 10.2 fL (9.4-12.4); Monocytes # 0.5 K/mcL (0.0-1.3); Monocytes % 9.6 %; Neutrophils # 2.9 K/mcL (1.6-8.9); Platelet Count 135 K/mcL (140-400); Red Blood Count 3.78 M/mcL (4.19-5.50); Red Cell Distribution Width 13.4 % (11.5-14.5); Segmented Neutrophils % 61.4 %
[2018-03-12 05:33] LABS: Uric Acid 6.6 mg/dL (2.3-7.6)
[2018-03-12 05:38] LABS: Calcium 8.7 mg/dL (8.6-10.3); Potassium 5.1 mEq/L (3.5-5.1)
[2018-03-12] MEDS: *HR* Heparin 5,000 UNIT/ML VIAL SQ SCH ×2 (06:09→16:29)
[2018-03-12] MEDS: 0.9 % Sodium Chloride 1,000 ML IVC SCH ×3 (06:14→22:14)
[2018-03-12] MEDS ORDERED: *HR* HYDROcodone/Acet 7.5/325 mg TABLET PO SCH (09:00)
[2018-03-12] MEDS: Aspirin 81 MG TAB.CHEW PO SCH (09:25)
[2018-03-12 10:26] LABS: Protein/Creatinine Ratio,Urine 6.35 mg/mg (0.00-0.20); Sodium, Urine 143.9 mEq/L
--- NOTE | 2018-03-12 12:12 | Internal Med Progress Note ---
Hospitalist Progress Note - Encounter Date of Encounter: 03/12/18 Time of Encounter: 12:10 - Subjective Interval History: Seen and examined at bedside today, no acute changes overnight. Reporting substernal chest pain this morning with nausea - Exam Vitals: Temp Pulse Resp BP Pulse Ox 97.8 F 65 18 128/87 97 03/12/18 07:55 03/12/18 07:55 03/12/18 07:55 03/12/18 07:55 03/12/18 09:30 Exam: PHYSICAL EXAMINATION: GENERAL: The patient is an obese male male in no apparent distress. He is alert and oriented x3. HEENT: Head is normocephalic and atraumatic. Extraocular muscles are intact. Pupils are equal, round, and reactive to light and accommodation. NECK: Supple. No carotid bruits. No lymphadenopathy or thyromegaly. LUNGS: CTA B/L AP&L. HEART: Regular rate and rhythm , S1, S2 without murmurs rubs or gallops. ABDOMEN: Soft, nontender, and nondistended. Positive bowel sounds. No hepatosplenomegaly was noted. EXTREMITIES: Left shoulder tenderness to palpation NEUROLOGIC: without facial droop or slurred speech SKIN: No ulceration or induration present. - Assessment and Plan (1) Chest pain Current Visit: Yes Status: Acute Assessment and Plan: Initial troponin from [place] negative, Subsequent troponins as follows; less than 0.032 for 3 total negative troponins CP is described as left sided with radiation to the left neck and left shoulder Associated s/sx include diaphoresis, dyspnea, dizziness, nausea and fatigue Found in his driveway by EMS clutching his chest CP resolved in ED with Nitro; but has returned and is now 2/10 and intermittent Risk factors include DM, CA hx, Obesity, HTN, HLD, and family hx As previously follow up with [facility] cardiology for SVT; cardiology available Obtain prior medical records Continue ACS r/o Obtain TTE Stress test pending completion Continue NPO 03/10--intermittent chest pain persists. Cardio seeing in consultation. Plan for LHC when Scr improves. 1.9 today. 03/11-- abnormal stress, needs LHC, unable to complete 2/2 NANCY vs CKD. Obtain [facility] medical records to evaluate baseline renal function. Plan for LHC as renal function improves 03/12--resume with chest pain, had abnormal stress test. Per cardiology recommendations are for LHC however giving alterations and renal functions were some concern as to when it would be appropriate to complete this. Nephrology consulted and recommends LHC on Wednesday as patient's renal function is improving. Today's serum creatinine on 1.58. 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 To be okay to complete LHC as scheduled on Wednesday. This morning, patient reporting substernal chest pain and nausea. Obtain EKG now stat troponin. Notified Janet Mason with cardiology. Follow EKG and troponin results. She troponin be elevated consider heparin drip. (2) Acute kidney injury Current Visit: Yes Status: Acute Assessment and Plan: NANCY, etiology unclear,likely pre renal. no prior h/o renal disease, continue IVF CK WNL daily labs 03/12--baseline renal function 1.1-1.3. SCR 1.58 improving with IVF, alterations and serum creatinine likely caused by prerenal etiology. Nephrology following consultation. Continue to avoid nephrotoxins. 24-hour urine for PE 2074. Continue to closely monitor I's and O's. CPK WNL, protein/ creatinine ratio 6.35, urine total protein 495, LDH 119, uric acid 6.6 (3) Constipation Current Visit: Yes Status: Acute Assessment and Plan: docusate BID Bowel movement reported today 03/12/18 (4) Diabetes Current Visit: Yes Status: Acute Assessment and Plan: Per hx stable continue LSSIC (5) Glomerulonephritis Current Visit: No Status: Acute Assessment and Plan: As above (6) Left shoulder pain Current Visit: Yes Status: Acute Assessment and Plan: s/p fall; fell to left shoulder; h/o recent shoulder surgery for rotator cuff repair per patient imaging from [facility] without fracture continues to have pain; ROM diminished but he reports this as chronic If pain persists or worsens consider MRI imaging for further evaluation; conservative treatment for now 03/12--persistent left shoulder pain. Range of motion improving. Reports that he attempted to catch himself with his left arm when he fell in the driveway prior to arrival. Likely resulted in strain. May benefit from physical therapy in the outpatient setting upon discharge DVT Prophylaxis: SC Heparin - Time Spent with Patient Total time spent is greater than 50% in coordination of care (as documented) at patient's floor/unit and/or counseling patient: less than 15 minutes Plan of Care Discussed with: patient Internal Medicine: Result - Labs CBC & Chem 7: 03/12/18 04:04 03/12/18 04:04 Labs: Short CBC 03/12/18 Range/Units 04:04 WBC 4.7 (4.3-11.1) K/mcL Hgb 11.6 L (12.9-16.9) g/dL Hct 35.3 L (37.5-50.1) % Plt Count 135 L (140-400) K/mcL Neutrophils # 2.9 (1.6-8.9) K/mcL BMP 03/11/18 03/12/18 04:38 04:04 Sodium 140 139 Potassium 5.1 5.1 Chloride 112 H 114 H Carbon Dioxide 24 22 L BUN 32 H 26 H Creatinine 1.70 H 1.58 H Glucose 81 100 Calcium 8.7 8.7 Urine 03/11/18 Range/Units 20:45 Urine Color Yellow (Yellow) Urine Clarity Clear (Clear) Urine pH 6.5 (5.0-8.0) pH Units Ur Specific [place] 1.015 (1.010-1.025) Urine Protein >=1000 H (Neg-Trace) mg/dL Urine Glucose (UA) Normal (Normal) mg/dL Consult Discharge Plan - Plan Referrals: Jeff Cordova MD [Primary Care Provider] - (1) Chest pain Qualifiers: Chest pain type: unspecified Qualified Code(s): R07.9 - Chest pain, unspecified (3) Constipation Qualifiers: Constipation type: unspecified constipation type Qualified Code(s): K59.00 - Constipation, unspecified (4) Diabetes Qualifiers: Diabetes mellitus type: type 2 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
[2018-03-12] MEDS: amLODIPine 5 MG TABLET PO SCH (14:15)
[2018-03-12] MEDS: Insulin DETEMIR 100 UNIT/ML X5UNITS SQ SCH (20:59)
[2018-03-12] MEDS: *HR* OxyCODONE Immed Rel 5 MG TABLET PO PRN (21:08)
[2018-03-12] MEDS: tiZANidine 4 MG TABLET PO SCH (22:12)
[2018-03-13] MEDS: Insulin LISPRO 300 UNITS/3 ML VIAL SQ SCH ×4 (01:14→17:57)
[2018-03-13 05:14] LABS: Basophils % 0.5 %; Eosinophils # 0.3 K/mcL (0.0-0.6); Eosinophils % 6.5 %; Hematocrit 34.8 % (37.5-50.1); Hemoglobin 11.7 g/dL (12.9-16.9); Immature Granulocytes % 1.4 % (0-4); Lymphocytes # 0.8 K/mcL (0.6-4.6); Lymphocytes % 18.1 %; Mean Corpuscular HGB Conc 33.6 g/dL (31.6-35.5); Mean Corpuscular Hemoglobin 30.8 pg (28.0-33.3); Mean Corpuscular Volume 91.6 fL (83.0-100.0); Monocytes # 0.4 K/mcL (0.0-1.3); Monocytes % 9.2 %; Neutrophils # 2.7 K/mcL (1.6-8.9); Platelet Count 126 K/mcL (140-400); Red Cell Distribution Width 13.5 % (11.5-14.5); Segmented Neutrophils % 64.3 %
[2018-03-13 05:34] LABS: BUN/Creatinine Ratio 20 (6-26); Blood Urea Nitrogen 23 mg/dL (6-20); Calcium 9.1 mg/dL (8.6-10.3); Carbon Dioxide 21 mEq/L (23-29); Chloride 116 mEq/L (98-107); Glucose 94 mg/dL (70-105); Osmolality,Calculated 291 (280-300); Potassium 4.9 mEq/L (3.5-5.1); Sodium 139 mEq/L (136-145); eGFR For Non-African Americans > 60 (> 60)
[2018-03-13] MEDS: *HR* OxyCODONE Immed Rel 5 MG TABLET PO PRN ×2 (06:08→14:55)
[2018-03-13] MEDS: *HR* Heparin 5,000 UNIT/ML VIAL SQ SCH ×2 (06:08→17:32)
[2018-03-13] MEDS: 0.9 % Sodium Chloride 1,000 ML IVC SCH ×3 (06:08→23:00)
[2018-03-13] MEDS: Fenofibrate 54 MG TABLET PO SCH (09:01)
[2018-03-13] MEDS: Aspirin 81 MG TAB.CHEW PO SCH (09:01)
[2018-03-13] MEDS: amLODIPine 5 MG TABLET PO SCH (09:02)
[2018-03-13] MEDS: tiZANidine 4 MG TABLET PO SCH ×3 (09:07→20:32)
--- NOTE | 2018-03-13 10:11 | Internal Med Progress Note ---
Hospitalist Progress Note - Encounter Date of Encounter: 03/13/18 Time of Encounter: 10:11 - Subjective Interval History: Seen and examined at bedside today, no acute changes overnight. Chest pain throughout yesterday afternoon. No chest pain this morning. - Exam Vitals: Temp Pulse Resp BP Pulse Ox 97.5 F L 59 17 136/85 94 03/13/18 07:00 03/13/18 07:00 03/13/18 07:00 03/13/18 07:00 03/13/18 09:15 Exam: PHYSICAL EXAMINATION: GENERAL: The patient is an obese male male in no apparent distress. He is alert and oriented x3. HEENT: Head is normocephalic and atraumatic. Extraocular muscles are intact. Pupils are equal, round, and reactive to light and accommodation. NECK: Supple. No carotid bruits. No lymphadenopathy or thyromegaly. LUNGS: CTA B/L AP&L. HEART: Regular rate and rhythm , S1, S2 without murmurs rubs or gallops. ABDOMEN: Soft, nontender, and nondistended. Positive bowel sounds. No hepatosplenomegaly was noted. EXTREMITIES: Left shoulder tenderness to palpation NEUROLOGIC: without facial droop or slurred speech SKIN: No ulceration or induration present. - Assessment and Plan (1) Chest pain Current Visit: Yes Status: Acute Assessment and Plan: Initial troponin from [place] negative, Subsequent troponins as follows; less than 0.032 for 3 total negative troponins CP is described as left sided with radiation to the left neck and left shoulder Associated s/sx include diaphoresis, dyspnea, dizziness, nausea and fatigue Found in his driveway by EMS clutching his chest CP resolved in ED with Nitro; but has returned and is now 2/10 and intermittent Risk factors include DM, [place] hx, Obesity, HTN, HLD, and family hx As previously follow up with [facility] cardiology for SVT; cardiology available Obtain prior medical records Continue ACS r/o Obtain TTE Stress test pending completion Continue NPO 03/10--intermittent chest pain persists. Cardio seeing in consultation. Plan for LHC when Scr improves. 1.9 today. 03/11-- abnormal stress, needs LHC, unable to complete 2/2 NANCY vs CKD. Obtain [facility] medical records to evaluate baseline renal function. Plan for LHC as renal function improves 03/12--resume with chest pain, had abnormal stress test. Per cardiology recommendations are for LHC however giving alterations and renal functions were some concern as to when it would be appropriate to complete this. Nephrology consulted and recommends LHC on Wednesday as patient's renal function is improving. Today's serum creatinine on 1.58. 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 To be okay to complete LHC as scheduled on Wednesday. This morning, patient reporting substernal chest pain and nausea. Obtain EKG now stat troponin. Notified Janet Mason with cardiology. Follow EKG and troponin results. She troponin be elevated consider heparin drip. 03/13--Discussed case with Dr. Schaefer today. Plan for LHC tomorrow. Renal function is improved today and is now 1.15. The patient reports that his chest pain has subsided. Continue to monitor on telemetry. (2) Acute kidney injury Current Visit: Yes Status: Acute Assessment and Plan: NANCY, etiology unclear,likely pre renal. no prior h/o renal disease, continue IVF CK WNL daily labs 03/12--baseline renal function 1.1-1.3. SCR 1.58 improving with IVF, alterations and serum creatinine likely caused by prerenal etiology. Nephrology following consultation. Continue to avoid nephrotoxins. 24-hour urine for PE 2074. Continue to closely monitor I's and O's. CPK WNL, protein/ creatinine ratio 6.35, urine total protein 495, LDH 119, uric acid 6.6 03/23--patient's renal function has returned to baseline, SCR 1.15. Continue IV fluids. She needs to avoid nephrotoxins. Closely monitor I's and O's. Urine output for the last 24 hours 2774. (3) Constipation Current Visit: Yes Status: Acute Assessment and Plan: Bowel movement reported today 03/12/18, continue twice a day docusate and increase activity (4) Diabetes Current Visit: Yes Status: Acute Assessment and Plan: Per hx stable continue LSSIC (5) Glomerulonephritis Current Visit: No Status: Acute Assessment and Plan: As above (6) Left shoulder pain Current Visit: Yes Status: Acute Assessment and Plan: s/p fall; fell to left shoulder; h/o recent shoulder surgery for rotator cuff repair per patient imaging from [facility] without fracture continues to have pain; ROM diminished but he reports this as chronic If pain persists or worsens consider MRI imaging for further evaluation; conservative treatment for now 03/13--persistent left shoulder pain. Range of motion improving. Reports that he attempted to catch himself with his left arm when he fell in the driveway prior to arrival. He has had a recent left rotator cuff repair, concern for reinjury. Obtain medical records from outside facility. DVT Prophylaxis: SC Heparin - Time Spent with Patient Total time spent is greater than 50% in coordination of care (as documented) at patient's floor/unit and/or counseling patient: less than 15 minutes Plan of Care Discussed with: patient Internal Medicine: Result - Labs CBC & Chem 7: 03/13/18 04:34 03/13/18 04:34 Labs: Short CBC 03/13/18 Range/Units 04:34 WBC 4.2 L (4.3-11.1) K/mcL Hgb 11.7 L (12.9-16.9) g/dL Hct 34.8 L (37.5-50.1) % Plt Count 126 L (140-400) K/mcL Neutrophils # 2.7 (1.6-8.9) K/mcL BMP 03/13/18 04:34 Sodium 139 Potassium 4.9 Chloride 116 H Carbon Dioxide 21 L BUN 23 H Creatinine 1.15 Glucose 94 Calcium 9.1 Cardiac Enzymes 03/12/18 Range/Units 12:41 Troponin I < 0.03 (< 0.04) ng/mL Consult Discharge Plan - Plan Referrals: Jeff Cordova MD [Primary Care Provider] - (1) Chest pain Qualifiers: Chest pain type: unspecified Qualified Code(s): R07.9 - Chest pain, unspecified (3) Constipation Qualifiers: Constipation type: unspecified constipation type Qualified Code(s): K59.00 - Constipation, unspecified (4) Diabetes Qualifiers: Diabetes mellitus type: type 2 Diabetes mellitus shelter insulin use: with long term care administrator use Diabetes mellitus complication status: without complication Qualified Code(s): E11.9 - Type 2 diabetes mellitus without complications; Z79.4 - custodial (current) use of insulin (6) Left shoulder pain Qualifiers: Chronicity: acute Qualified Code(s): M25.512 - Pain in left shoulder
[2018-03-13] MEDS: *HR* HYDROcodone/Acet 7.5/325 mg TABLET PO PRN ×2 (10:26→20:40)
--- NOTE | 2018-03-13 11:10 | Cardiology Progress Note ---
Date of Encounter: 03/13/18 Time of Encounter: 10:00 Assessment and Plan (1) Abnormal stress test Current Visit: Yes Status: Acute Pharmacologic nuclear 2 day stress test showed medium sized, moderate intensity defects in inferior and inferoseptal segments consistent with ischemia. TTE LVEF 55%. Mildly dilated LV. Normal LV wall thickness and function. Mild LVDD, mild MR, mild phtn. Pt reports intermittent exertional chest pain over the past year, worsening in intensity. Minimal chest pain during hospital stay with limited activity. [facility] 2012 reported non-obstructive disease. Risk factors HTN, HLD, DM. Recommend [facility]. R/B/A discussed. LHC was delayed secondary to NANCY. Serum creatinine is now back to normal. We will proceed with [facility] tomorrow as planned. ASA, Statin, BB. NTG PRN chest pain. (2) Chest pain Current Visit: Yes Status: Acute Troponins negative, no ischemic ECG findings. Underwent 2 day stress as above, abnormal. [facility] 03/14/18. Qualifiers: Chest pain type: unspecified Qualified Code(s): R07.9 - Chest pain, unspecified Discussion w patient/family: The assessment and plan as outlined above was discussed with the patient and/or family members who expressed understanding and agreement. All questions were answered. Thank you for involving us in the care of your patient. Please call with any questions. Subjective Principal diagnosis: Chest pain, abnormal stress test Interval history: Reports minimal chest pain. Resting quietly. Objective Vital Signs, Last 4 Hours Pulse Ox 03/13/18 09:15 94 General: Conversant, No Apparent Distress HEENT: Atraumatic, Normocephaly, Mucus Membranes Moist Neck: No JVD, Normal carotid pulses Cardiac: Reg Rate and Rhythm, Normal S1 and S2, No Murmur Lungs: Normal Breath Sounds, No Wheeze, Rales, Rhonchi Neuro: Alert and responsive, No focal deficits noted Abdomen: Soft, Non-Tender Skin: No rashes noted on visualized skin Musculoskeletal: No Chest Wall Tenderness Extremities: No Clubbing, No Cyanosis, No Edema, Normal Pulses Results 03/13/18 04:34 03/13/18 04:34 Lab Results 03/12/18 03/13/18 03/13/18 12:41 04:34 04:34 WBC 4.2 L Hgb 11.7 L Hct 34.8 L Plt Count 126 L Sodium 139 Potassium 4.9 Chloride 116 H Carbon Dioxide 21 L BUN 23 H Creatinine 1.15 Glucose 94 Calcium 9.1 Troponin I < 0.03 - Imaging and Cardiology Stress Test: report reviewed - EKG Interpretation EKG results cardiology: personally reviewed Consult Discharge Plan - Plan Referrals: Jeff Cordova MD [Primary Care Provider] -
--- NOTE | 2018-03-13 14:22 | Nephrology Progress Note ---
Date of Encounter: 03/13/18 Time of Encounter: 15:00 - Assessment and Plan (1) Acute kidney injury Current Visit: Yes Status: Acute SCr normalized at 1.15, GFR >60 UOP great at 3475cc in the past 24hr Can continue IVF for LHC tomorrow mucomyst also ordered (2) Glomerulonephritis Current Visit: No Status: Acute Has nephrotic range proteinuria, will need ACEi/ARB resumed after LHC (3) Abnormal stress test Current Visit: Yes Status: Acute LHC tomorrow, continue IVF. Mucomyst started Subjective Principal diagnosis: Chest pain, abnormal stress test Interval history: Pt seen and examined with no new complaints. Objective - Vital Signs Vital signs: Vital Signs Temp Pulse Resp BP Pulse Ox 03/13/18 11:24 97.3 F L 57 18 131/82 96 03/13/18 09:15 94 03/13/18 07:00 97.5 F L 59 17 136/85 94 03/13/18 03:17 98.0 F 58 16 121/80 98 03/12/18 22:45 98.3 F 62 16 142/83 96 03/12/18 18:19 99.0 F 80 16 144/87 95 03/12/18 17:20 98.4 F 58 18 144/74 94 Intake and Output 03/12/18 03/13/18 03/13/18 23:59 07:59 15:59 Intake Total 1120 / 1120 1000 / 1000 480 / 480 Output Total 1000 / 1000 2350 / 2350 Balance 120 / 120 -1350 / -1350 480 / 480 Intake: IV Fluids 1000 / 1000 1000 / 1000 0.9 % Sodium Chloride 1,000 ML 1000 / 1000 1000 / 1000 @ 125 mls/hr IVC .Q8H [facility] Rx#: [id number] Oral 120 / 120 480 / 480 Output: Urine 1000 / 1000 2350 / 2350 Other: Meal Lunch Lunch Percent of Meal Consumed 100% 100% Weight 133.2 kg Blood Glucose* 111 115 174 Patient Weight 03/13/18 23:59 Weight 133.2 kg - General Appearance General appearance: Present: well-developed, well-nourished EENT: Present: ATNC, mucous membranes moist Neck: Present: no JVD, supple Respiratory: Present: clear Cardiology: Present: no edema, normal S1, normal S2 Gastrointestinal: Present: no tenderness, no guarding Integumentary: Present: warm and dry Neurologic: Present: no focal deficit Musculoskeletal: Present: no deformities Psychiatric: Present: mood/affect appropriate, cooperative - Lab 03/13/18 04:34 03/13/18 04:34 Most recent lab results Calcium 9.1 mg/dL (8.6-10.3) 03/13/18 04:34 Urine Creatinine 78 mg/dL 03/11/18 20:45 Urine Sodium 143.9 mEq/L 03/11/18 20:45 Urine Total Protein 495 mg/dL (1-14) H 03/11/18 20:45 Consult Discharge Plan - Plan Referrals: Jeff Cordova MD [Primary Care Provider] -
--- NOTE | 2018-03-13 14:23 | Nephrology Progress Note ---
Date of Encounter: 03/12/18 Time of Encounter: 14:00 - Assessment and Plan (1) Acute kidney injury Current Visit: Yes Status: Acute (2) Glomerulonephritis Current Visit: No Status: Acute (3) Abnormal stress test Current Visit: Yes Status: Acute Subjective Principal diagnosis: Chest pain, abnormal stress test Objective - Vital Signs Vital signs: Vital Signs Temp Pulse Resp BP Pulse Ox 03/13/18 11:24 97.3 F L 57 18 131/82 96 03/13/18 09:15 94 03/13/18 07:00 97.5 F L 59 17 136/85 94 03/13/18 03:17 98.0 F 58 16 121/80 98 03/12/18 22:45 98.3 F 62 16 142/83 96 03/12/18 18:19 99.0 F 80 16 144/87 95 03/12/18 17:20 98.4 F 58 18 144/74 94 Intake and Output 03/12/18 03/13/18 03/13/18 23:59 07:59 15:59 Intake Total 1120 / 1120 1000 / 1000 480 / 480 Output Total 1000 / 1000 2350 / 2350 Balance 120 / 120 -1350 / -1350 480 / 480 Intake: IV Fluids 1000 / 1000 1000 / 1000 0.9 % Sodium Chloride 1,000 ML 1000 / 1000 1000 / 1000 @ 125 mls/hr IVC .Q8H [facility] Rx#: [id number] Oral 120 / 120 480 / 480 Output: Urine 1000 / 1000 2350 / 2350 Other: Meal Lunch Lunch Percent of Meal Consumed 100% 100% Weight 133.2 kg Blood Glucose* 111 115 174 Patient Weight 03/13/18 23:59 Weight 133.2 kg - Lab 03/13/18 04:34 03/13/18 04:34 Most recent lab results Calcium 9.1 mg/dL (8.6-10.3) 03/13/18 04:34 Urine Creatinine 78 mg/dL 03/11/18 20:45 Urine Sodium 143.9 mEq/L 03/11/18 20:45 Urine Total Protein 495 mg/dL (1-14) H 03/11/18 20:45 Consult Discharge Plan - Plan Referrals: Jeff Cordova MD [Primary Care Provider] -
[2018-03-13] MEDS: Insulin DETEMIR 100 UNIT/ML X5UNITS SQ SCH (20:42)
[2018-03-14] MEDS: Insulin LISPRO 300 UNITS/3 ML VIAL SQ SCH ×4 (01:30→17:43)
[2018-03-14] MEDS: *HR* Heparin 5,000 UNIT/ML VIAL SQ SCH ×2 (04:17→17:44)
[2018-03-14] MEDS: *HR* OxyCODONE Immed Rel 5 MG TABLET PO PRN ×2 (06:55→14:49)
--- NOTE | 2018-03-14 07:53 | Event Note ---
Date of Encounter: 03/14/18 Time of Encounter: 07:52 Nephrology Chart Review I read my colleague's sign-out and reviewed his chart. I see that his renal function has returned to WNL. I will sign-off at this point. Please feel free to call or reconsult as needed.
[2018-03-14] MEDS: amLODIPine 5 MG TABLET PO SCH (08:44)
[2018-03-14] MEDS: Fenofibrate 54 MG TABLET PO SCH (08:44)
[2018-03-14] MEDS: Aspirin 81 MG TAB.CHEW PO SCH (08:44)
[2018-03-14] MEDS: tiZANidine 4 MG TABLET PO SCH ×3 (08:45→20:07)
[2018-03-14] MEDS: *HR* Acetylcysteine 20% 600 MG/3 ML ORAL SYRINGE PO SCH ×2 (08:45→20:20)
--- NOTE | 2018-03-14 10:41 | Internal Med Progress Note ---
Hospitalist Progress Note - Encounter Date of Encounter: 03/14/18 Time of Encounter: 10:37 - Subjective Interval History: Seen and examined at bedside today, no acute changes overnight. Reports chest pain overnight with diaphoresis. He states that he did not tell the staff. It was explained to him that he should report episodes of chest pain to the staff every time he has some. The patient verbalized understanding. - Exam Vitals: Temp Pulse Resp BP Pulse Ox 97.8 F 64 20 135/88 97 03/14/18 06:48 03/14/18 06:48 03/14/18 06:48 03/14/18 06:48 03/14/18 06:48 Exam: PHYSICAL EXAMINATION: GENERAL: The patient is an obese male male in no apparent distress. He is alert and oriented x3. HEENT: Pupils are equal, round, and reactive to light and accommodation. NECK: Supple. No carotid bruits. No lymphadenopathy or thyromegaly. LUNGS: CTA B/L AP&L. HEART: Regular rate and rhythm , S1, S2 without murmurs rubs or gallops. ABDOMEN: Soft, nontender, and nondistended. Positive bowel sounds. No hepatosplenomegaly was noted. EXTREMITIES: Left shoulder tenderness to palpation NEUROLOGIC: without facial droop or slurred speech - Assessment and Plan (1) Chest pain Current Visit: Yes Status: Acute Assessment and Plan: Initial troponin from [place] negative, Subsequent troponins as follows; less than 0.032 for 3 total negative troponins CP is described as left sided with radiation to the left neck and left shoulder Associated s/sx include diaphoresis, dyspnea, dizziness, nausea and fatigue Found in his driveway by EMS clutching his chest CP resolved in ED with Nitro; but has returned and is now 2/10 and intermittent Risk factors include DM, IA hx, Obesity, HTN, HLD, and family hx As previously follow up with [facility] cardiology for SVT; cardiology available Obtain prior medical records Continue ACS r/o Obtain TTE Stress test pending completion Continue NPO 03/14--presented with chest pain, found in his driveway by EMS clutching his chest. Chest pain improved with nitroglycerin but did not cease completely. He has recently been worked up at [facility] cardiology has a history of SVT. Multiple risk factors for CAD. Had a positive stress test during the stay. condition stable, reporting an episode of chest pain overnight with diaphoresis. He reports that he did not tell the staff however. He is to undergo a heart catheter today for evaluation of ischemic disease. (2) Acute kidney injury Current Visit: Yes Status: Acute Assessment and Plan: NANCY, etiology unclear,likely pre renal. no prior h/o renal disease, continue IVF CK WNL daily labs 03/12--baseline renal function 1.1-1.3. SCR 1.58 improving with IVF, alterations and serum creatinine likely caused by prerenal etiology. Nephrology following consultation. Continue to avoid nephrotoxins. 24-hour urine for PE 2074. Continue to closely monitor I's and O's. CPK WNL, protein/ creatinine ratio 6.35, urine total protein 495, LDH 119, uric acid 6.6 03/23--patient's renal function has returned to baseline, SCR 1.15. Continue IV fluids. She needs to avoid nephrotoxins. Closely monitor I's and O's. Urine output for the last 24 hours 2774. 03/14--BMP pending today. Continues have adequate urinary output. Nephrology has signed off. Pretreat prior to heart cath with Mucomyst. Continue IVF S/P cath, recheck BMP in the morning. Continue to avoid nephrotoxins. Attempt to set up outpatient follow-up with nephrology. Patient currently sees nephrology at [facility] but would prefer to see [facility]. Given his glomerulonephritis with nephrotic range proteinuria the patient will need an BUBBA or ARB after the cath (3) Constipation Current Visit: Yes Status: Resolved (4) Diabetes Current Visit: Yes Status: Acute Assessment and Plan: Glucose remained stable, continue current coverage (5) Glomerulonephritis Current Visit: No Status: Acute Assessment and Plan: As above (6) Left shoulder pain Current Visit: Yes Status: Acute Assessment and Plan: s/p fall; fell to left shoulder; h/o recent shoulder surgery for rotator cuff repair per patient imaging from [facility] without fracture continues to have pain; ROM diminished but he reports this as chronic If pain persists or worsens consider MRI imaging for further evaluation; conservative treatment for now 03/14--persistent left shoulder pain. Range of motion improving. Reports that he attempted to catch himself with his left arm when he fell in the driveway prior to arrival. He has had a recent left rotator cuff repair, concern for reinjury. Obtain medical records from outside facility--review of records pending receipt. DVT Prophylaxis: SC Heparin - Time Spent with Patient Total time spent is greater than 50% in coordination of care (as documented) at patient's floor/unit and/or counseling patient: less than 15 minutes Plan of Care Discussed with: patient Internal Medicine: Result - Labs CBC & Chem 7: 03/13/18 04:34 03/13/18 04:34 Consult Discharge Plan - Plan Referrals: Jeff Cordova MD [Primary Care Provider] - Rocky Ny MD [Non-Partnered Physician] - 03/18/18 11:30 am (1) Chest pain Qualifiers: Chest pain type: unspecified Qualified Code(s): R07.9 - Chest pain, unspecified (3) Constipation Qualifiers: Constipation type: unspecified constipation type Qualified Code(s): K59.00 - Constipation, unspecified (4) Diabetes Qualifiers: Diabetes mellitus type: type 2 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
[2018-03-14] MEDS ORDERED: ISOVUE-370 200 ML INFUS..BTL IV ONE (10:48)
[2018-03-14] MEDS ORDERED: Heparin 1,000 UNITS/500 mL 500 ML ONE (10:48)
[2018-03-14] MEDS ORDERED: *HR* Heparin 10,000 UNIT/10 ML VIAL ONE (10:48)
[2018-03-14] MEDS ORDERED: 0.9 % Sodium Chloride 2,000 ML ONE (10:48)
[2018-03-14] MEDS ORDERED: Nitroglycerin 1,000 MCG/10 ML VIAL IV ONE (10:49)
[2018-03-14] MEDS ORDERED: *HR* Midazolam HCl 2 MG/2 ML VIAL ONE ×2 (11:04→11:31)
[2018-03-14] MEDS ORDERED: *HR* FentaNYL (PF) 100 MCG/2 ML VIAL ONE ×3 (11:05→11:59)
[2018-03-14 11:45] LABS: BUN/Creatinine Ratio 16 (6-26); Blood Urea Nitrogen 20 mg/dL (6-20); Calcium 9.2 mg/dL (8.6-10.3); Carbon Dioxide 24 mEq/L (23-29); Chloride 113 mEq/L (98-107); Glucose 85 mg/dL (70-105); Osmolality,Calculated 292 (280-300); Potassium 5.2 mEq/L (3.5-5.1); Sodium 140 mEq/L (136-145); eGFR For Non-African Americans > 60 (> 60)
--- NOTE | 2018-03-14 12:09 | Invasive Diagnostic Lab Proc ---
Name: New Traiq Date of Study: 03/14/2018 Date: 1965 Ht: 74.4in Medical Record#: [id number] Age: 53 Wt: 295.42lb Gender: Male BSA: 2.58 Order #: [id number] BMI: 37.51 Physicians Procedure Physician: Valeria Schaefer MD Referring MD: Referring MD: Staff Name Position Time In Ynes Phoenix RN Nematologist 11:03 AM [facility], Cony RT (R) Scrub 11:03 AM [place], Cony RT (R) Monitor 11:03 AM [facility], Cony RT (R) Monitor 11:17 AM Ynes Phoenix RN Nematologist 11:18 AM [facility], Cony RT (R) Scrub 11:18 AM Indications Indication Abnormal Test - Stress Procedures Performed Procedure L HRT ARTERY/VENTRICLE ANGIO Pre-Procedure Checklist Informed consent is complete signed and on chart. H&P is on chart. ID band is on and ID verified with patient. Patient NPO for procedure The procedure was described for the patient and questions were answered. Blood Pressure: 135/88 ECG is on chart. Rhythm: NSR Plan of Care Patient will tolerate the procedure without complications. Adequate level of comfort will be maintained. Hemodynamics will remain stable Patient will recover from procedure without complications. Respiratory function will be maintained. Cardiac rhythm will remain stable. Patient temperature will be maintained. Patient and/or family have verbalized understanding of the procedure. Patient Education Chief Complaint/Reason for Test: Cardiac Cath Developmental Category: Adult (18-64 years) Developmentally Appropriate for Age: Yes Learning Barriers: None Education Needs: Procedure Education Method: Verbal Information Taught: Cardiac Cath Educational Evaluation: Able to repeat information Intravenous Access Time IV Size Location DC'd Fluid/Drip Rate Units RN 11:10 AM 20g 1 1/4" Patent On Arrival Rt Arm Yes 11:10 AM Started with 18g needle 1 1/4" Rt Antecubital 0.9NaCl 25 ml/hr [facility], Cony RT (R) Allergies No Known Allergies NKDA Vital Signs Time BP (mmHg) HR (bpm) O2 Sat. RR (bpm) LOC 11:11 AM / % 5 = Fully awake and oriented or at pre-proc level 11:11 AM / % 4 = Oriented but drowsy 11:27 AM / % 4 = Oriented but drowsy 11:16 AM 176 / 103 65 100 % 23 11:21 AM 156 / 99 65 99 % 21 11:26 AM 158 / 94 65 99 % 16 11:31 AM 154 / 108 68 97 % 18 11:36 AM 164 / 102 72 97 % 21 11:41 AM 158 / 99 72 94 % 18 11:46 AM 158 / 96 72 94 % 13 11:51 AM 167 / 89 70 99 % 11 Procedural Medications Time Medication Dose Units Method Given By 11:11 AM Oxygen 2 L/min nasal cannula Ynes Phoenix RN 11:23 AM Versed 1 mg Intravenous Ynes Phoenix RN 11:23 AM Fentanyl 50 mcg Intravenous Ynes Phoenix RN 11:24 AM Versed 1 mg Intravenous Ynes Phoenix RN 11:24 AM Fentanyl 50 mcg Intravenous Ynes Phoenix RN 11:34 AM Versed 1 mg Intravenous Ynes Phoenix RN 11:34 AM Fentanyl 50 mcg Intravenous Ynes Phoenix RN 11:34 AM Lidocaine 2% 20 ml Subcutaneous Valeria Schaefer MD 11:46 AM Fentanyl 50 mcg Intravenous Ynes Phoenix RN ASA Classification: CLASS II- Mild systemic disease (i.e. well-controlled diabetes, hypertension, asthma, cigarette smoking) Jose Score Preprocedure Postprocedure Activity 2- Moves 4 extremities sustained head lift Activity 2- Moves 4 extremities sustained head lift Circulation 2- SBP +/= 20 points of pre-anesthetic level Circulation 2- SBP +/= 20 points of pre-anesthetic level Consciousness 2- Awake and alert oriented x 3 Consciousness 2- Awake and alert oriented x 3 O2 Saturation 2- Able to maintain O2 satruation of 92% on room air O2 Saturation 2- Able to maintain O2 satruation of 92% on room air Respiratory 2- Able to deep breathe and cough well Respiratory 2- Able to deep breathe and cough well Total Score 10 Total Score 10 Contrast Agent: Isovue Diagnostic Contrast: 81 ml Total Contrast: 81 ml Fluoro Dose: 8317 mGy Procedure Log Time Note Enter By 10:47 AM CathStat 11:02 AM Pt arrived to laboratory asst 2 at 11:02 tsites 11:03 AM Ynes Phoenix RN Position: Nematologist Time in: 11:03 tsites 11:03 AM Cony Bernard RT (R) Position: Scrub Time in: 11:03 tsites 11:03 AM Cony Roque (R) Position: Monitor Time in: 11:03 tsites 11:03 AM Patient charges- Angio tray pack, Navilyst 3mm J, Pulse Oximetry and ACIST tubing and transducer tsites 11:04 AM Physician arrived 11:04 tsites 11:04 AM Meet and greet completed tsites 11:05 AM Procedure start 11:04 tsites 11:09 AM Patient with bad IV. tsites 11:09 AM [facility] starting new IV now. tsites 11:11 AM IV Supplies used: J loop Angio Cath. tsites 11: AM Time: 11: Oxygen on at 2 L/min per nasal cannula by Ynes Phoenix RN tsites 11: AM Time: 11:LOC: 5 = Fully awake and oriented or at pre-proc level tsites 11: AM Time: 11:11 Patient comfortable and pain free: Yes tsites 11:15 AM Vitals capture started with the following parameters, Patient=Adult, Interval=5 min, Initial Pespqdmt=195 mmHg, Deflation Rate=5 mmHg, Cuff placed on Right Arm 11:16 AM HR=65 bpm, MRHP=161/103 mmhg, WcS1=939.0 %, Resp=23 B/min, Comment=nsr 11:18 AM Cony Roque (R) Position: Monitor Time in: 11:17 tsites 11:18 AM Ynes Phoneix RN Position: Nematologist Time in: :18 tsites 11:18 AM Cony Bernard RT (R) Position: Scrub Time in: :18 tsites 11:18 AM Recorded ECG: HR=65 Condition=Condition 1 11:18 AM Case Delayed no tsites 11:19 AM Hair removed from procedure site in procedure lab using clippers. Bilateral groin prepped with Chloraprep by Cony Roque (R), then patient was draped. Skin intact. tsites 11:21 AM HR=65 bpm, RKTD=914/99 mmhg, SpO2=99.0 %, Resp=21 B/min 11:23 AM Time: : Versed 1 mg Intravenous Given by Ynes Phoenix RN tsites 11: AM Time: : Fentanyl 50 mcg Intravenous Given by Ynes Phoenix RN tsites 11:24 AM Time: 11: Versed 1 mg Intravenous Given by Ynes Phoenix RN tsites 11: AM Time: 11: Fentanyl 50 mcg Intravenous Given by Ynes Phoenix RN tsites 11: AM Pressure channel 1 zeroed. 11:26 AM HR=65 bpm, YZLN=251/94 mmhg, SpO2=99.0 %, Resp=16 B/min 11: AM Time: 11:11LOC: 4 = Oriented but drowsy tsites 11: AM Time: 11:11 Patient comfortable and pain free: Yes tsites 11:30 AM Time out was performed according to hospital policy. Conscious sedation and anesthesia was achieved (see medication log with in this report above) tsites 11:31 AM HR=68 bpm, SSFQ=140/108 mmhg, SpO2=97.0 %, Resp=18 B/min 11:34 AM Time: 11:34 Versed 1 mg Intravenous Given by Ynes Phoenix RN [facility] 11:34 AM Time: 11:34 Fentanyl 50 mcg Intravenous Given by Ynes Phoenix RN tsites 11: AM Time: 11:34 20 ml Lidocaine 2% to right groin Subcutaneous Given by Valeria Schaefer MD tsites 11:34 AM Micro-Introducer Kit utilized for sheath placement tsites 11:34 AM Isovue 370 - 200ml contrast [address] Schaefer. tsites 11:34 AM ASA Class CLASS II- Mild systemic disease (i.e. well-controlled diabetes, hypertension, asthma, cigarette smoking) tsites 11:36 AM Access obtained by percutaneous puncture. 6Fr 10cm Terumo [place] sheath placed in right Femoral artery. [id number] twilson 11:36 AM HR=72 bpm, EBNS=969/102 mmhg, SpO2=97.0 %, Resp=21 B/min 11:36 AM 5Fr FR 4 catheter inserted over the wire DNC twilson 11:36 AM Wire removed twilson 11:37 AM Recorded Pressure: Ao, HR=65, Condition=Condition 1 (Aorta) Ao 124/83/101 11:37 AM RCA angiography performed in multiple views. twilson 11:37 AM Wire reinserted. twilson 11:37 AM Catheter removed twilson 11:38 AM 5Fr FL 4 catheter inserted over the wire DNC twilson 11:38 AM Wire removed twilson 11:39 AM Recorded Pressure: Ao, HR=71, Condition=Condition 1 (Aorta) Ao 133/99/116 11:40 AM Wire reinserted. twilson 11:41 AM Catheter removed twilson 11:41 AM HR=72 bpm, ZUSE=626/99 mmhg, SpO2=94.0 %, Resp=18 B/min 11:41 AM 6Fr EBU 3.5 Medtronic guide catheter was used to cannulate the PCI vessel successfully. reused? No twilson 11:42 AM Wire removed twilson 11:42 AM Recorded Pressure: Ao, HR=69, Condition=Condition 1 (Aorta) Ao 137/88/109 11:43 AM Time: :27 Patient comfortable and pain free: Yes twilson 11:43 AM Time: 11:27LOC: 4 = Oriented but drowsy twilson 11:43 AM Wire reinserted. twilson 11:43 AM Catheter removed twilson 11:43 AM 5Fr FL5 catheter inserted over the wire [id number] twilson 11:44 AM Wire removed twilson 11:44 AM LCA angiography performed in multiple views. twilson 11:44 AM Recorded Pressure: Ao, HR=72, Condition=Condition 1 (Aorta) Ao 123/81/100 11:45 AM Recorded Pressure: Ao, HR=71, Condition=Condition 1 (Aorta) Ao 123/89/105 11:46 AM Wire reinserted. twilson 11:46 AM Catheter removed, intact. twilson 11:46 AM HR=72 bpm, NWEW=778/96 mmhg, SpO2=94.0 %, Resp=13 B/min 11:46 AM Time: 11:46 Fentanyl 50 mcg Intravenous Given by Ynes Phoenix RN twilson 11:46 AM 5Fr Pigtail catheter inserted over the wire DN twilson 11:46 AM Catheter crossed the aortic valve and was selectively placed in the left ventricle. Pressures recorded on pullback for left heart catheterization. twilson 11:46 AM Wire removed twilson 11:46 AM Recorded Pressure: LV, HR=77, Condition=Condition 1 (Left Ventricle) LV 130/34/45 11:47 AM Recorded Pressure: LV, Ao, HR=73, Condition=Condition 1 (Left Ventricle) LV 133/36/21, (Aorta) Ao 117/57/92 11:47 AM Wire reinserted. twilson 11:47 AM Wire and catheter removed, intact. twilson 11:48 AM Coronary Dominance: right twilson 11:49 AM Procedure completed at 11:49 03/14/2018 twilson 11:49 AM Did you address TAI flow and Dominance? Yes twilson 11:49 AM Sign out completed: Radiation Dose 783.17 mGy, 8317.10 cGy/cm2 Fluoro Time: 4.2 Isovue 370 - 200ml contrast 81 ml given by Valeria Schaefer MD. Complications: None. 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 Cardiac Rehab Consult needed: NoConfirmed administered medications: Yes twilson 11:49 AM Isovue 370 - 200ml,1 Bottle(s) used. twilson 11:50 AM Arterial sheath pulled, Angio-seal closure device used and was Successful S/N. twilson 11:50 AM Estimated Blood Loss: minimal twilson 11:50 AM Post ECG NSR twilson 11:50 AM Post Blood Pressure 158/96 twilson 11:50 AM 11:50 Post Pulses Bilateral DP & PT 1+ twilson 11:50 AM Information taught Cardiac Cath and Angioseal twilson 11:50 AM Education needs Procedure, Plan of Care, and Responsibilities of Patient in Care twilson 11:50 AM Learning barriers :None twilson 11:50 AM Education Methods Verbal twilson 11:51 AM Education evaluation Able to repeat information twilson 11:51 AM Site status No bleeding/hematoma - Rt Groin as reported by Sites, Cony RT (R) at 11:51 twilson 11:51 AM Opsite applied twilson 11:51 AM HR=70 bpm, NVPY=771/89 mmhg, SpO2=99.0 %, Resp=11 B/min 11:51 AM Delay to floor No twilson 11:51 AM Family placed in c.. twilson 11:57 AM Report given to Radha CONNOR Pt taken to 3B Room #44. 11:57 twilson 11:57 AM Patient out of room: 11:57 twilson 11:58 AM Lesion found in Mid RCA. Pre Stenosis: 25 Pre TAI Flow: twilson 11:58 AM Lesion found in Mid Circumflex. Pre Stenosis: 25 Pre TAI Flow: twilson 11:58 AM Right Coronary, Right Posterior Descending Arteries with Right Posterolateral and Acute Marginal branches with 25 % stenosis. If graft is supplying this area, 0 % stenosis twilson 11:58 AM Circumflex, Obtuse Marginal, Left Posterior Descending, and Left Posterolateral Coronary Arteries with 25 % stenosis. If graft is supplying this area, 0 % stenosis twilson Complications Complication None Hemodynamics Pressures Site Systolic/A Wave Diastolic/V Wave Mean AO 124 83 101 AO 133 99 116 AO 137 88 109 AO 123 81 100 AO 123 89 105 LV 130 34 45 LV 133 36 21 AO 117 57 92 Post Procedure Information Blood Pressure: 158/96 mmHg Rhythm: NSR Post procedural instructions were given Closure Device Time Device Success/Fail 03/14/2018 11:57:00 AM Angio-Seal VIP Successful Site Checks Time Location Status Staff Sheath In? Note 11:51 AM Rt Groin No bleeding/hematoma Sites, Cony RT (R) Pulses Time Site Pre-Procedure Post-Procedure Note 03/14/2018 11:10:00 AM Bilateral radial 2+ 03/14/2018 11:10:00 AM Bilateral DP & PT 1+ 11:50:00 AM Bilateral DP & PT 1+ Updated by Cony Bernard RT (R) on 03/14/2018 11:59:23 AM Cony Bernard RT electronically signed on 03/14/2018 12:00:50 PM with status of Final
--- NOTE | 2018-03-14 12:17 | Pre-Sedation Evaluation ---
Pre-sedation evaluation - Pre-sedation checklist Date of procedure: 03/14/18 Procedure: C Recent Vitals: Last Vital Signs Temp 97.8 F 03/14/18 06:48 Pulse 64 03/14/18 06:48 Resp 20 03/14/18 06:48 BP 135/88 03/14/18 06:48 Pulse Ox 97 03/14/18 06:48 H&P (including ROS) documented in medical record: Yes Previous reaction to sedatives/anesthetics: No Dietary Status: NPO after Midnight Dentition: full dentition ASA Classification *see protocol: CLASS II-Mild systemic disease Cardiac Registry (Cardio Only) - Functional Capacity Functional Capacity: >=4 METS with symptoms - Clincal Frailty Scale
--- NOTE | 2018-03-14 14:41 | Event Note ---
Date of Encounter: 03/14/18 Time of Encounter: 14:30 - Cardiology Event Note Prelim [facility] results reviewed with Dr. Schaefer--mild, non-obstructive CAD. Medical therapy recommended. Consider non-cardiac causes of chest pain. No further inpatient recommendations from Cardiology as inpatient, will sign off. Recommend close outpatient follow-up with PCP.
[2018-03-14] MEDS: *HR* HYDROcodone/Acet 7.5/325 mg TABLET PO PRN (20:07)
[2018-03-14] MEDS: 0.9 % Sodium Chloride 1,000 ML IVC SCH (20:22)
[2018-03-14] MEDS: Insulin DETEMIR 100 UNIT/ML X5UNITS SQ SCH (20:25)
[2018-03-15] MEDS: *HR* OxyCODONE Immed Rel 5 MG TABLET PO PRN ×2 (00:14→08:42)
[2018-03-15] MEDS: Insulin LISPRO 300 UNITS/3 ML VIAL SQ SCH ×3 (04:04→11:29)
[2018-03-15] MEDS: 0.9 % Sodium Chloride 1,000 ML IVC SCH ×2 (04:13→06:00)
[2018-03-15] MEDS: *HR* HYDROcodone/Acet 7.5/325 mg TABLET PO PRN (04:13)
[2018-03-15] MEDS: *HR* Heparin 5,000 UNIT/ML VIAL SQ SCH (06:02)
[2018-03-15] MEDS: Fenofibrate 54 MG TABLET PO SCH (08:41)
[2018-03-15] MEDS: Aspirin 81 MG TAB.CHEW PO SCH (08:41)
[2018-03-15] MEDS: amLODIPine 5 MG TABLET PO SCH (08:42)
[2018-03-15] MEDS: tiZANidine 4 MG TABLET PO SCH (08:42)
[2018-03-15 11:07] VITALS: BP 97/59
--- NOTE | 2018-03-15 11:59 | Discharge Summary ---
<Monica Newsome - Last Filed: 03/15/18 13:51> - NOTES TO OUTPATIENT PROVIDER Notes to Outpatient Provider: Cardiac work up and Cardiology consult yielded results that suggest that the patient's symptoms were not cardiac in origin. Recommend follow-up work up as an outpatient for non-cardiac chest pain. For patient's NANCY, nephrology recommends outpatient follow-up with [facility]. Orders not resulted at time of discharge: Pending orders 03/09/18 07:46 NM giancarlo perf SPECT multi [NM] Routine Date of Encounter: 03/15/18 Time of Encounter: 08:00 - Discharge Diagnosis (1) Non-cardiac chest pain Priority: Primary Status: Resolved (2) Acute kidney injury Priority: Secondary Status: Resolved (3) Proteinuria Priority: Secondary Status: Acute Qualifiers: Proteinuria type: unspecified Qualified Code(s): R80.9 - Proteinuria, unspecified Hospital course: Patient is a very pleasant 53 year old male with a past medical history significant for CAD, DVT, GERD and HLD who presented to [facility] on 03/08/18 as a transfer from [facility] for workup and management of left sided chest pain and near syncopal episode. CXR showed no acute processes, CT brain without contrast showed no acute intracranial abnormalities, EKG showed normal sinus rhythm with occasional PVCs.Echo showed LVEF 55%, mildly dilated LV, mild LV diastolic dysfunction, mild MR, and mild pulmonary hypertension. Trops were negative. Symptoms improved following Nitroglycerin in the ER. Patient has a history of SVT and follows with [facility]. Patient also has a history of lymphoma status post chemotherapy and recently had his port removed. Cardiology was consulted. Completed a left heart cath that showed mild CAD but no obstruction. They recommend follow up as an outpatient to investigate non-cardiac causes for the patients current symptoms. During the hospital course, patient also developed NANCY that improved with fluids. Nephrology was consulted and recommended follow up as an outpatient with [facility] and an ACEI or ARB on d/c because patient had glomerulonephritis with nephrotic range proteinuria. This is hospitalization day number 7. The patient was seen and examined at bedside this morning. No acute events were reported overnight. Today, states his symptoms have resolved. He is just experiencing some abdominal pain and constipation that have been ongoing since before admission. The patient denies any lightheadedness, dizziness, vision changes, headache, chest pain, palpitations, shortness of breath, cough, wheezing, sputum production, abdominal pain, nausea, vomiting, urinary changes, edema, fever or chills. The patient is stable for discharge today and should follow up with his PCP for work up of non-cardiac chest pain. Discharge discussed with: patient - Time Spent with Patient Total time spent providing and/or coordinating discharge services: Greater than 30 minutes - Discharge Medications Prescriptions: Amlodipine Besylate 5 mg PO DAILY 30 Days #30 tablet Lisinopril [Zestril] 10 mg PO DAILY 30 Days #30 tablet Metoprolol [Lopressor] 25 mg PO BID 30 Days #60 tablet Home Medications: Sertraline [Zoloft] 200 mg PO DAILY 03/18/15 [History] Tamsulosin [Flomax] 0.4 mg PO DAILY 03/18/15 [History] Allopurinol [Zyloprim 100 MG] 300 mg PO DAILY 07/25/15 [History] Fenofibrate [Lofibra] 160 mg PO DAILY 07/25/15 [History] HYDROcodone/Acet 7.5/325 mg [[place] 7.5-325 mg] 1 tab PO QID 05/21/17 [History] SitaGLIPtin [Januvia] 100 mg PO DAILY 05/21/17 [History] Tizanidine HCl [Zanaflex] 4 mg PO TID 05/21/17 [History] Aspirin [Adult Aspirin] 81 mg PO DAILY 03/09/18 [History] Atorvastatin [Lipitor] 40 mg PO HS 03/09/18 [History] Insulin Aspart Prot/Insuln Asp [Novolog Mix 70-30 Vial] 15 unit SQ QPM 03/09/18 [History] Insulin Aspart Prot/Insuln Asp [Novolog Mix 70-30 Vial] 20 unit SQ QAM 03/09/18 [History] Levothyroxine [Synthroid] 225 mcg PO QAM 03/09/18 [History] Magnesium Oxide [Magnesium] 400 mg PO DAILY 03/09/18 [History] Amlodipine Besylate 5 mg PO DAILY 30 Days #30 tablet 03/15/18 [Rx] Lisinopril [Zestril] 10 mg PO DAILY 30 Days #30 tablet 03/15/18 [Rx] Metoprolol [Lopressor] 25 mg PO BID 30 Days #60 tablet 03/15/18 [Rx] Allergies/Adverse Reactions: 3 Allergy/AdvReac Type Severity Reaction Status Date / Time No Known Allergies Allergy Verified 05/21/17 12:01 Date of admission: 03/12/18 09:28 Primary care physician: Jeff Cordova MD Consults: 03/09/18 13:38 Consult to Cardiology [CONS] Routine Comment: Consulting Provider: Card[facility] Reason for Consult: positive stress test Time Notified: 13:38 Call Completed: Yes 03/09/18 15:02 Consult to Wound Care [CONS] Routine Reason for Consult: multiple wounds along pannis and to right inner thigh Time Notified: 15:02 Call Completed: Yes 03/11/18 11:34 Consult to Nephrology [CONS] Routine Consulting Provider: [facility]/MAC/NEETA/KURTIS Reason for Consult: NANCY vs CKD, elevated Scr. Concern for CKD Time Notified: 11:35 Call Completed: Yes Discharging clinician: Wilmer Matt Anticipated date of discharge: 03/15/18 - Constitutional Vitals: Temp Pulse Resp BP Pulse Ox 98.0 F 65 14 97/59 96 03/15/18 11:05 03/15/18 11:05 03/15/18 11:05 03/15/18 11:05 03/15/18 11:05 General appearance: Present: cooperative, A&O X 3, pleasant, no acute distress, answers questions appropriately Exam: GENERAL: Patient is a well-nourished 53 year old male in no acute distress HEENT: Head is normocephalic, atraumatic, well formed. EYES: PERRLA, EOMI. MOUTH : Oropharynx clear. Mucous membranes moist. NECK: Supple, no masses, trachea midline. No JVD noted. CV: Regular rate and rhythm. Normal S1, S2 with no clicks, murmurs, gallops, or rubs. PULMONARY: Breath sounds are clear and equal bilaterally. Symmetrical chest expansion. No wheeze, rales or rhonchi. Good effort. GI: Abdomen is soft, nondistended, mildly tender to palpation in all 4 quadrants , positive bowel sounds x 4 present and slightly hypoactive. No peritoneal signs or guarding. No palpable masses. SKIN: Warm, dry and intact. No rashes, bruising, cyanosis or non healing lesions are seen. No edema is noted. NEUROLOGICAL: Alert, awake. CN II-XII grossly intact. Patient is moving all extremities and following commands appropriately. No focal deficits are noted. Muscle strength 5/5 x 4 extremities. MSK: Left shoulder shows decreased ROM and pain with movement. Patient had recent rotation cuff injury and surgery. VASCULAR/EXTREMITIES: No cyanosis, clubbing, or edema in lower extremities. - Patient Status Disposition: Home, Self-Care Condition: Good Functional capacity at discharge: independent ambulation Overall status at discharge: patient is back to baseline - Discharge Instructions Instructions: Chest Pain (DC), Heart Healthy Diet, Professional System Administrator (GEN) Follow Up With: Baljeet Mora MD [Partnered Physician] - (This appointment was requested. The office will call you with an appointment time and day. If you do not hear anything with in 1-2 days please give the office a call. ) Rocky Ny MD [Non-Partnered Physician] - 03/18/18 11:30 am (Cardiology Appointment) Additional Instructions: - Follow up with [facility] or [facility] - Follow up with [facility] - Follow up with PCP- Please call and make an appointment with in 7-10 days from discharge date. RISK FACTORS: STOP SMOKING: If you smoke, STOP. Smoking or tobacco use significantly increases your risk of heart disease because nicotine causes the arteries to narrow or constrict. It also causes fats to stick to the artery. Your chances of having a heart attack are greatly increased if you continue to smoke. For more information, call the education line for smoking cessation 1-456-BMFZEGF EAT A LOW FAT/CHOLESTEROL/SODIUM DIET: This diet may help reduce your chances of having a heart attack. LIFTING: Avoid lifting anything more than 10 pounds for 5-7 days Prior to straining, laughing, sneezing and/or coughing, apply manual pressure directly over insertion site. ACTIVITY: You may walk or climb stairs as tolerated You can resume sexual activity as tolerated In general, you are encouraged to engage in a minimum of 30 minutes or more of moderate intensity physical activity, such as brisk walking, daily or at least 3 -4 times weekly BATHING Do not submerge the site into water (bath tub, hot tub, swimming pool) for 1 week. This can be a source for infection into the blood stream. You may shower after 24 hours SITE CARE: After 24 hours, you may remove the dressing and leave the site open to air. Keep the site clean and dry. Clean gently and pat dry. You can expect bruising and tenderness that gradually resolve within a week or two. Return to work as instructed per your physician Resume driving as instructed per physician Keep all scheduled follow up appointments Resume medications as instructed IMPORTANT: If prescribed a Platelet Aggregation Inhibitor such as, Plavix, Brilinta or Effient: Duration of therapy is minimum one year These medications are often used in combination with Aspirin in prevention of future heart attacks Never discontinue unless consult with your Layout Operator STROKE (CVA) Risk factors for a stroke are: Age, cigarette smoking, diabetes, excessive alcohol consumption, family history, high blood pressure, overweight, physical inactivity, prior stroke, heart attack, diagnosis of carotid artery stenosis or other artery disease. Warning signs: Sudden numbness or weakness of the face, arm or leg; especially on one side of the body, sudden confusion, trouble speaking or understanding, sudden trouble seeing in one or both eyes, sudden trouble walking, dizziness, loss of balance or coordination, sudden severe headache with no cause. Call 911 or go to the Emergency Room. CONGESTIVE HEART FAILURE: If you have been diagnosed with Congestive Heart Failure (CHF) and your symptoms return, make an appointment with your physician Weigh yourself daily. Notify your physician if you have a weight gain of two or more pounds in one day or five or more pounds in one week. If you experience any difficulty breathing, please call 911 BLEEDING: Although the risk of bleeding is minimal, it can happen. If you have any bleeding from the site, apply firm pressure above the puncture site for 10-15 minutes. If the bleeding does not stop, continue manual pressure and call 911 Contact your physician if: You develop a fever greater than 101 degrees Fahrenheit Your site becomes reddened or has any drainage You have an increase in pain or burning at the site or if a large knot forms at the site. If you experience chest pain, shortness of breath, dizziness, or extreme tiredness, stop the activity and rest. Please notify your physicians office if you experience any of these symptoms and they are not relieved by rest please call 911! 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 Tariq is a 53 year old male - Time Spent with Patient Total time spent providing and/or coordinating discharge services: Date of admission: 03/12/18 09:28 Primary care physician: Jeff Cordova MD Consults: 03/09/18 13:38 Consult to Cardiology [CONS] Routine Comment: Consulting Provider: Cardiology [facility] Reason for Consult: positive stress test Time Notified: 13:38 Call Completed: Yes 03/09/18 15:02 Consult to Wound Care [CONS] Routine Reason for Consult: multiple wounds along pannis and to right inner thigh Time Notified: 15:02 Call Completed: Yes 03/11/18 11:34 Consult to Nephrology [CONS] Routine Consulting Provider: [facility]/MAC/NEETA/UKRTIS Reason for Consult: NANCY vs CKD, elevated Scr. Concern for CKD Time Notified: 11:35 Call Completed: Yes - Constitutional Vitals: Temp Pulse Resp BP Pulse Ox 98.0 F 65 14 97/59 96 03/15/18 11:05 03/15/18 11:05 03/15/18 11:05 03/15/18 11:05 03/15/18 11:05 - Attending Attestation General: Conversant, No Apparent Distress HEENT: Atraumatic, Normocephaly, Mucus Membranes Moist Neck: No JVD, Normal carotid pulses Cardiac: Reg Rate and Rhythm, Normal S1 and S2, No Murmur Lungs: Normal Breath Sounds, No Wheeze, Rales, Rhonchi Neuro: Alert and responsive, No focal deficits noted Abdomen: Soft, Non-Tender Skin: No rashes noted on visualized skin Musculoskeletal: No Chest Wall Tenderness Extremities: No Clubbing, No Cyanosis, No Edema, Normal Pulses Patient is a very pleasant 53 year old male with a past medical history significant for CAD, DVT, GERD and HLD who presented to [facility] on 03/08/18 as a transfer from [facility] for workup and management of left sided chest pain and near syncopal episode. CXR showed no acute processes, CT brain without contrast showed no acute intracranial abnormalities, EKG showed normal sinus rhythm with occasional PVCs.Echo showed LVEF 55%, mildly dilated LV, mild LV diastolic dysfunction, mild MR, and mild pulmonary hypertension. Trops were negative. Symptoms improved following Nitroglycerin in the ER. Patient has a history of SVT and follows with [facility]. Patient also has a history of lymphoma status post chemotherapy and recently had his port removed. Cardiology was consulted. Completed a left heart cath that showed mild CAD but no obstruction. They recommend follow up as an outpatient to investigate non-cardiac causes for the patients current symptoms. During the hospital course, patient also developed NANCY that improved with fluids. Nephrology was consulted and recommended follow up as an outpatient with [facility] and an ACEI or ARB on d/c because patient had glomerulonephritis with nephrotic range proteinuria. The patient was seen and examined at bedside this morning. No acute events were reported overnight. Today, states his symptoms have resolved. He is just experiencing some abdominal pain and constipation that have been ongoing since before admission. The patient denies any lightheadedness, dizziness, vision changes, headache, chest pain, palpitations, shortness of breath, cough, wheezing, sputum production, abdominal pain, nausea, vomiting, urinary changes, edema, fever or chills. The patient is stable for discharge today and should follow up with his PCP for work up of non-cardiac chest pain. His BP meds were adjusted on discharge. We added lisinopril 10mg to his regimen , reduced his amlodipine to 5mg, discontinued his labetalol and gave him a script for metoprolol
--- NOTE | 2018-03-15 17:31 | Electrocardiograph Report ---
[place] [address] Test Date: 2018-03-12 Pat Name: New Tariq Department: 113 Room: 3B44 Gender: M Senior Principal: : [id number] Requested By: Chato Watts Order Number: [id number] Reading MD: Rikki Brown Measurements Intervals [place] Rate: 76 P: 54 FL: 172 QRS: 2 QRSD: 99 T: 27 QT: 363 QTc: 394 Interpretive Statements SINUS RHYTHM WITH OCCASIONAL VENTRICULAR PREMATURE COMPLEXES Electronically Signed On 03-15-2018 17:30:05 EDT by Rikki Brown
== END 2018-03-15 14:07 | disposition home or self-care (01) | DRG 287 ==
LOC: 3BNU
PROVIDERS: ADMIT Internal Medicine; ATTEND Internal Medicine

== ENCOUNTER 2018-05-23 11:07 | Inpatient (IN) ==
--- NOTE | 2018-05-23 11:31 | Emergency Department Note ---
Disposition Clinical Impression: History of hypertension, History of diabetes mellitus, Obesity, Renal failure, Hyperkalemia Disposition: Admitted As Inpatient Referrals: Jeff Cordova MD [Primary Care Provider] - Forms: ED Satisfaction Letter General Adult HPI - General Chief complaint: ED Recheck/Abnormal Lab/Rx Stated complaint: abnormal labs Time Seen by Provider: 05/23/18 11:28 - History of Present Illness HPI Narrative: 53-year-old male with a history of hypertension and diabetes reports emergency department at the advice of his primary care physician Dr. Avalos, per report the patient had an abnormal renal panel a few days ago. The patient describes decreased urine output he has never had dialysis or delphine renal failure in the past. The patient has had no acute chest pain shortness of breath vomiting diarrhea or abdominal pain but does describe nausea. There is no history of back pain. No syncope. No fevers. The patient reports she would not be here unless he was advised to come in by his physician. He states she recommends admission to the hospital based on his prior renal panel abnormalities suggesting we consult with the vice squad police officer. Pain Scale: 8 - Related Data Home Medications Medication Instructions Recorded Confirmed Sertraline [Zoloft] 200 mg PO DAILY 03/18/15 03/09/18 Tamsulosin [Flomax] 0.4 mg PO DAILY 03/18/15 03/09/18 Allopurinol [Zyloprim 100 MG] 300 mg PO DAILY 07/25/15 03/09/18 Fenofibrate [Lofibra] 160 mg PO DAILY 07/25/15 03/09/18 HYDROcodone/Acet 7.5/325 mg [[place] 1 tab PO QID 05/21/17 03/09/18 7.5-325 mg] SitaGLIPtin [Januvia] 100 mg PO DAILY 05/21/17 03/09/18 Tizanidine HCl [Zanaflex] 4 mg PO TID 05/21/17 03/09/18 Aspirin [Adult Aspirin] 81 mg PO DAILY 03/09/18 03/09/18 Atorvastatin [Lipitor] 40 mg PO HS 03/09/18 03/09/18 Insulin Aspart Prot/Insuln Asp 15 unit SQ QPM 03/09/18 03/09/18 [Novolog Mix 70-30 Vial] Insulin Aspart Prot/Insuln Asp 20 unit SQ QAM 03/09/18 03/09/18 [Novolog Mix 70-30 Vial] Levothyroxine [Synthroid] 225 mcg PO QAM 03/09/18 03/09/18 Magnesium Oxide [Magnesium] 400 mg PO DAILY 03/09/18 03/09/18 Previous Rx's Medication Instructions Recorded Amlodipine Besylate 5 mg PO DAILY 30 Days #30 tablet 03/15/18 Lisinopril [Zestril] 10 mg PO DAILY 30 Days #30 tablet 03/15/18 Metoprolol [Lopressor] 25 mg PO BID 30 Days #60 tablet 03/15/18 Allergies Allergy/AdvReac Type Severity Reaction Status Date / Time No Known Allergies Allergy Verified 05/21/17 12:01 All systems ED: reviewed and negative except as stated. Past Medical History - Past Medical History Medical history: Reports: arthritis, coronary artery disease, DVT, GERD, hyperlipidemia, kidney stones, osteoporosis, renal disease, thyroid disease, other Surgical history: Reports: other Psychiatric history: Reports: anxiety, depression - Social History Smoking Status: Former smoker Smokeless Tobacco Status: Yes Alcohol use: Reports: occasionally Drug use: Reports: none Physical Exam - General Limitations: no limitations General appearance: alert, in no apparent distress - Head Head exam: atraumatic, normocephalic, normal inspection - Eye Eye exam: Present: normal appearance, PERRL, EOMI. Absent: scleral icterus, conjunctival injection - ENT ENT exam: normal exam, normal oropharynx, mucous membranes moist, TM's normal bilaterally, normal external ear exam - Neck Neck exam: Present: normal inspection, full ROM, trachea midline - Chest Chest inspection: Present: symmetric chest wall rise. Absent: tenderness - Respiratory Respiratory exam: Present: normal lung sounds bilaterally. Absent: respiratory distress, wheezes, stridor, prolonged expiratory phase - Cardiovascular Cardiovascular exam: Present: regular rate, normal rhythm, normal heart sounds - Abdominal Exam Abdominal exam: Present: soft, Non-Tender, normal bowel sounds. Absent: tenderness, distention, guarding, rebound, rigidity - Extremities Exam Extremities exam: Present: normal inspection, full ROM, normal capillary refill. Absent: tenderness, pedal edema, joint swelling, calf tenderness - Expanded Lower Extremity Exam Lower leg exam: Absent: Homans' sign Neurovascular/Tendon exam: Present: normal capillary refill. Absent: motor def icit, sensory deficit, tendon deficit, extremity cold to touch - Back Exam Back exam: Present: normal inspection, full ROM. Absent: tenderness, CVA tenderness (R), CVA tenderness (L) - Neurological Exam Neurological exam: Present: alert, oriented X3, CN II-XII intact. Absent: motor sensory deficit - Psychiatric Psychiatric exam: Present: normal affect, normal mood - Skin Skin exam: Present: warm, dry, intact, normal color. Absent: rash, cyanosis, diaphoresis, erythema, pallor, mottled Course Vital Signs Temperature 98.0 F 05/23/18 11:10 Pulse Rate 71 05/23/18 11:10 Respiratory Rate 18 05/23/18 11:10 Blood Pressure 142/87 05/23/18 11:10 O2 Sat by Pulse Oximetry 98 05/23/18 11:10 Temperature 98.0 F 05/23/18 11:10 Pulse Rate 71 05/23/18 11:10 Respiratory Rate 18 05/23/18 11:10 Blood Pressure 142/87 05/23/18 11:10 O2 Sat by Pulse Oximetry 98 05/23/18 11:10 Oxygen Delivery Oxygen Delivery Room Air Medical Decision Making - MDM Narrative Medical decision making narrative: The patient appears to have worsening renal failure, electrolyte abnormalities noted. EKG sinus rhythm without acute findings. Laboratory studies reviewed otherwise, chest x-ray negative. Based on the patient's renal failure and electrolyte abnormalities I consulted with Dr. Metcalf, vice squad police officer, who recommends hospitalization. I consulted with the hospitalist on-call Dr. Agosto who has accepted the patient to their care. The patient is agreeable. Dr. Metcalf will act as pci security consultant. - Medical Records Medical records reviewed: Yes I reviewed the patient's medical records. - Lab Data Lab results reviewed: Yes I reviewed the patient's lab results. Result diagrams: 05/23/18 11:37 05/23/18 11:37 Lab Results 05/23/18 05/23/18 05/23/18 Range/Units 11:37 11:37 11:40 WBC 5.1 (4.3-11.1) K/mcL RBC 4.32 (4.19-5.50) M/mcL Hgb 13.1 (12.9-16.9) g/dL Hct 39.4 (37.5-50.1) % MCV 91.2 (83.0-100.0) fL MCH 30.3 (28.0-33.3) pg MCHC 33.2 (31.6-35.5) g/dL RDW 14.0 (11.5-14.5) % Plt Count 100 L (140-400) K/mcL MPV 10.4 (9.4-12.4) fL Immature Gran % 1.6 (0-4) % Seg Neutrophils % 53.1 % Lymphocytes % 25.0 % Monocytes % 11.7 % Eosinophils % 7.6 % Basophils % 1.0 % Neutrophils # 2.7 (1.6-8.9) K/mcL Lymphocytes # 1.3 (0.6-4.6) K/mcL Monocytes # 0.6 (0.0-1.3) K/mcL Eosinophils # 0.4 (0.0-0.6) K/mcL Basophils # 0.1 (0.0-0.2) K/mcL Sodium 141 (136-145) mEq/L Potassium 5.4 H (3.5-5.1) mEq/L Chloride 115 H (98-107) mEq/L Carbon Dioxide 19 L (23-29) mEq/L BUN 47 H (6-20) mg/dL Creatinine 1.93 H (0.70-1.30) mg/dL Est GFR ( Amer) 45 L (> 60) Est GFR (Non-Af Amer) 37 L (> 60) BUN/Creatinine Ratio 24 (6-26) Glucose 160 H (70-105) mg/dL Calculated Osmolality 308 H (280-300) Calcium 9.4 (8.6-10.3) mg/dL Total Bilirubin 0.3 (0.3-1.0) mg/dL AST 22 (13-39) Units/L ALT 29 (7-52) Units/L Alkaline Phosphatase 34 (34-104) Units/L Serum Total Protein 6.4 (6.4-8.9) g/dL Albumin 4.1 (3.5-5.7) g/dL Globulin 2.3 L (2.4-3.5) g/dL Albumin/Globulin Ratio 1.8 (1.1-2.2) Urine Color Yellow (Yellow) Urine Clarity Clear (Clear) Urine pH 5.5 (5.0-8.0) pH Units Ur Specific [place] 1.027 H (1.010-1.025) Urine Protein >=1000 H (Neg-Trace) mg/dL Urine Glucose (UA) Normal (Normal) mg/dL Urine Ketones Negative (Negative) mg/dL Urine Blood Small H (Negative) Urine Nitrite Negative (Negative) Urine Bilirubin Negative (Negative) Urine Urobilinogen Normal (Normal) mg/dL Ur Leukocyte Esterase Negative (Negative) Urine Microscopic RBC 3-5 H (0-3) per hpf Urine Microscopic WBC 0-3 (0-3) per hpf Ur Squamous Epith Cells Many H (None-Few) per lpf Urine Bacteria None Seen (None-Few) per hpf Hyaline Casts None Seen (None-Few) per lpf Ur Culture Indicated? NO (NO) - Radiology Data Radiology results reviewed: Yes I reviewed the patient's radiology results. - EKG Data EKG #1 EKG results narrative: Normal sinus rhythm rate about [address] changes PT waves noted. No dysrhythmia.
[2018-05-23 11:53] LABS: Bilirubin,Urine Negative (Negative); Blood,Urine Small (Negative); Clarity,Urine Clear (Clear); Color,Urine Yellow (Yellow); Glucose,Urine (UA) Normal (Normal); Ketones,Urine Negative (Negative); Leukocyte Esterase,Urine Negative (Negative); Nitrite,Urine Negative (Negative); PH,Urine 5.5 pH Units (5.0-8.0); Protein,Urine >=1000 mg/dL (Neg-Trace); Specific Gravity,Urine 1.027 (1.010-1.025); Urobilinogen,Urine Normal (Normal)
[2018-05-23 11:54] LABS: Bacteria,Urine None Seen per hpf (None-Few); Hyaline Casts,Urine None Seen per lpf (None-Few); Squamous Epithelial Cell,Urine Many per lpf (None-Few); WBC,Urine 0-3 per hpf (0-3)
[2018-05-23 11:59] LABS: Basophils # 0.1 K/mcL (0.0-0.2); Eosinophils # 0.4 K/mcL (0.0-0.6); Eosinophils % 7.6 %; Hematocrit 39.4 % (37.5-50.1); Hemoglobin 13.1 g/dL (12.9-16.9); Immature Granulocytes % 1.6 % (0-4); Lymphocytes # 1.3 K/mcL (0.6-4.6); Mean Corpuscular HGB Conc 33.2 g/dL (31.6-35.5); Mean Corpuscular Hemoglobin 30.3 pg (28.0-33.3); Mean Corpuscular Volume 91.2 fL (83.0-100.0); Mean Platelet Volume 10.4 fL (9.4-12.4); Monocytes # 0.6 K/mcL (0.0-1.3); Monocytes % 11.7 %; Neutrophils # 2.7 K/mcL (1.6-8.9); Platelet Count 100 K/mcL (140-400); Red Blood Count 4.32 M/mcL (4.19-5.50); Segmented Neutrophils % 53.1 %
[2018-05-23 12:23] LABS: Albumin 4.1 g/dL (3.5-5.7); Albumin/Globulin Ratio 1.8 (1.1-2.2); Bilirubin,Total 0.3 mg/dL (0.3-1.0); Calcium 9.4 mg/dL (8.6-10.3); Globulin 2.3 g/dL (2.4-3.5); Potassium 5.4 mEq/L (3.5-5.1); Total Protein 6.4 g/dL (6.4-8.9)
--- NOTE | 2018-05-23 15:35 | Internal Med History&Physical ---
<Braulio Cervantes N - Last Filed: 05/23/18 17:25> Date of Encounter: 05/23/18 Time of Encounter: 15:30 Internal Medicine - H&P: HPI Chief complaint: Abnormal labs Admitted From: Home History of present illness: Mr. Tariq is a 53 year old male presenting to the [facility] MR been due to abnormal labs. Patient was recently admitted to the hospital in March 2018 for chest pain. At that time he was found to have an NANCY. Per EcW, patient has a history of Fibrillary Glomerulonephritis with nephrotic syndrome. He was previously on cyclophosphamide but this was discontinued due to adverse reaction. Patient used to follow with Dr. Dean and [facility] glomeruloneph[facility] clinic. He has appeared to loss follow-up with outpatient nephrology. Since his admission in March he reestablished with [facility]. His first visit with them as an outpatient was 05/17/2018, labs were ordered which were obtained a few days ago and patient was found to have an elevated creatinine. Patient was advised by his supervisor veneer to visiting merge department for admission and further workup. Today he complains of some nausea and epigastric abdominal pain worse with eating. Denies any flank pain. He does report chronic oliguria. Reports history of lower extremity edema but does not have any evidence for edema today. Past Med Surg Social Fam HX - Past Medical History Medical history: arthritis, coronary artery disease, DVT, GERD, hyperlipidemia, kidney stones, osteoporosis, renal disease, thyroid disease, other Additional medical history: hernia Psychiatric history: anxiety, depression - Past Surgical History Surgical History: other Additional surgical history: eye surgery as a child. - Social History Smoking Status: Former smoker Smokeless Tobacco Status: Yes Alcohol use: occasionally Drug use: none - Family History Father Adopted: Yes Mother Family Member Ethnicity: Non- Living Status: Still Living Internal Medicine - H&P: Meds Sertraline [Zoloft] 200 mg PO DAILY 03/18/15 [History] Tamsulosin [Flomax] 0.4 mg PO DAILY 03/18/15 [History] Fenofibrate [Lofibra] 160 mg PO DAILY 07/25/15 [History] HYDROcodone/Acet 7.5/325 mg [[place] 7.5-325 mg] 1 tab PO QID 05/21/17 [History] SitaGLIPtin [Januvia] 100 mg PO DAILY 05/21/17 [History] Tizanidine HCl [Zanaflex] 4 mg PO TID 05/21/17 [History] Aspirin [Adult Aspirin] 81 mg PO DAILY 03/09/18 [History] Atorvastatin [Lipitor] 40 mg PO HS 03/09/18 [History] Insulin Aspart Prot/Insuln Asp [Novolog Mix 70-30 Vial] 15 unit SQ QPM 03/09/18 [History] Insulin Aspart Prot/Insuln Asp [Novolog Mix 70-30 Vial] 20 unit SQ QAM 03/09/18 [History] Magnesium Oxide [Magnesium] 400 mg PO BID 03/09/18 [History] Lisinopril [Zestril] 10 mg PO DAILY 30 Days #30 tablet 03/15/18 [Rx] Metoprolol [Lopressor] 25 mg PO BID 30 Days #60 tablet 03/15/18 [Rx] Amlodipine Besylate 10 mg PO DAILY 05/23/18 [History] Febuxostat [Uloric] 40 mg PO DAILY 05/23/18 [History] Levothyroxine [Synthroid] 125 mcg PO QAM 05/23/18 [History] Allergy/AdvReac Type Severity Reaction Status Date / Time No Known Allergies Allergy Verified 05/21/17 12:01 All Systems PM: A 10-system review of systems was performed and is negative for pertinent findings except as documented above in the HPI. - Constitutional Constitutional: no fever(s) - EENT Eyes: no change in vision - Cardiovascular Cardiovascular ROS IM: other (Admits to occasional chest pain and shortness of breath. Denies any current chest pain or shortness breath.) - Respiratory Respiratory: no dyspnea - Gastrointestinal Gastrointestinal: abdominal pain, nausea - Genitourinary Genitourinary ROS male: other (Decreased urinary output) - Musculoskeletal Musculoskeletal ROS IM: other (Left shoulder pain) - Endocrine Endocrine IM: no polyuria - Constitutional Vitals: Temp Pulse Resp BP Pulse Ox 98.0 F 71 14 115/79 98 05/23/18 15:09 05/23/18 15:09 05/23/18 15:16 05/23/18 15:16 05/23/18 15:09 General appearance: Present: A&O X 3 Exam: Constitutional: Resting comfortably in bed, no acute distress. Chest: Normal inspirator effort, symmetrical chest wall movement Cardiovascular: RRR, no murmurs Respiratory: Clear to auscultation in all lung mercedes bilaterally Abdomen: positive bowel sounds. soft, tender to deep palpation worse in RUQ and epigastric regions. No suprapubic tenderness Back: Normal inspection. No CVA tenderness Extremities: No pedal edema. No cyanosis or clubbing Skin: clean dry and intact Psych: pleasant, cooperative, interacts well during examination. Internal Med - H&P Results - Labs CBC & Chem 7: 05/23/18 11:37 05/23/18 11:37 Labs: Short CBC 05/23/18 Range/Units 11:37 WBC 5.1 (4.3-11.1) K/mcL Hgb 13.1 (12.9-16.9) g/dL Hct 39.4 (37.5-50.1) % Plt Count 100 L (140-400) K/mcL Neutrophils # 2.7 (1.6-8.9) K/mcL BMP 05/23/18 11:37 Sodium 141 Potassium 5.4 H Chloride 115 H Carbon Dioxide 19 L BUN 47 H Creatinine 1.93 H Glucose 160 H Calcium 9.4 Liver Function 05/23/18 Range/Units 11:37 Total Bilirubin 0.3 (0.3-1.0) mg/dL AST 22 (13-39) Units/L ALT 29 (7-52) Units/L Alkaline Phosphatase 34 (34-104) Units/L Albumin 4.1 (3.5-5.7) g/dL Urine 05/23/18 Range/Units 11:40 Urine Color Yellow (Yellow) Urine Clarity Clear (Clear) Urine pH 5.5 (5.0-8.0) pH Units Ur Specific [place] 1.027 H (1.010-1.025) Urine Protein >=1000 H (Neg-Trace) mg/dL Urine Glucose (UA) Normal (Normal) mg/dL - Impressions ITS Impressions Chest X-Ray 05/23/18 11:30 IMPRESSION: No acute cardiopulmonary disease. D/ / Chris Boggs MD / Chris Boggs MD Interpreting Provider: Chris Boggs MD - Assessment and plan (1) Acute kidney injury Current Visit: No Status: Resolved Assessment and plan: 53-year-old male with a history of fibrillary glomerulonephritis present for his second incidence of NANCY the last 2 months. Patient was received followed by glomerular nephritis clinic at [facility] and was on cyclophosphamide but this was dis continued due to adverse reaction. Patient was met in the hospital in March 2018 for chest pain, at that time was found to have an AK I which was successfully treated. Patient followed up with outpatient nephrology and obtain lab work last week which resulted with an elevated creatinine. Patient was advised to be admitted to the hospital for further evaluation, workup, and treatment. NANCY without history of CKD. Plan: Will evaluate etiology of patient's NANCY: -Obtaining urine creatinine and sodium to calculate fractional excretion of sodium. -Urine studies obtained as outpatient last week. -We will obtain bladder scan as patient history of BPH. Will also collect retroperitoneal ultrasound IVF with lactated Ringer's at 100ml an hour (2) 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 Assessment and plan: History of fibrillated, nephritis, which according to [facility] records. It is possible patient's NANCY is secondary to his underlying condition. Does not have a history of CAD. Previous treated with cyclophosphamide this was discontinued. Plan: Nephrology consultation for further recommendation Will treat NANCY with IV hydration. (3) Hyperkalemia Current Visit: Yes Status: Acute Assessment and plan: Presented with hyperkalemia with potassium 5.4. Patient has been borderline high in the past. He is on lisinopril as outpatient and has underlying renal disease. EKG performed on the floor does not show any evidence for spiked T waves or QRS prolongation. Plan: We will continue to monitor, no treatment indicated at this time. Suspect this to correct with resolution of the NANCY. Holding lisinopril. (4) Lymphoma in remission Current Visit: Yes Status: Acute Assessment and plan: History of lymphoma status post chemotherapy in 2016. Patient states that his malignancy is in remission and he has routine follow-up as outpatient. (5) Hypertension Current Visit: No Status: Chronic Assessment and plan: History of hypertension, borderline hypertension emergency department. Plan: We will hold lisinopril due to NANCY continue metoprolol and amlodipine Qualifiers: Hypertension type: essential hypertension Qualified Code(s): I10 - Essential (primary) hypertension (6) Diabetes Current Visit: No Status: Chronic Assessment and plan: Sliding-scale insulin Qualifiers: Diabetes mellitus type: type 2 Diabetes mellitus termite control representative insulin use: with termite control representative use Diabetes mellitus complication status: without complication Qualified Code(s): E11.9 - Type 2 diabetes mellitus without complications; Z79.4 - termite helper (current) use of insulin (7) DVT prophylaxis Current Visit: No Status: Acute Assessment and plan: Subcutaneous heparin 5000 units every 12. (8) Thrombocytopenia Current Visit: Yes Status: Acute Assessment and plan: Likely secondary to patient's history of malignancy. Plan: We will continue to monitor. - Time Spent With Patient Total time spent is greater than 50% in coordination of care (as documented) at patient's floor/unit and/or counseling patient: <Debi Luque - Last Filed: 05/23/18 18:02> Date of Encounter: 05/23/18 Internal Medicine - H&P: HPI History of present illness: Mr. Tariq is a 53 year old male All Systems PM: A 10-system review of systems was performed and is negative for pertinent findings except as documented above in the HPI. - Constitutional Vitals: Temp Pulse Resp BP Pulse Ox 98.3 F 71 16 125/80 96 05/23/18 16:16 05/23/18 16:16 05/23/18 16:16 05/23/18 16:16 05/23/18 16:16 Internal Med - H&P Results - Labs CBC & Chem 7: 05/23/18 11:37 05/23/18 11:37 Labs: Short CBC 05/23/18 Range/Units 11:37 WBC 5.1 (4.3-11.1) K/mcL Hgb 13.1 (12.9-16.9) g/dL Hct 39.4 (37.5-50.1) % Plt Count 100 L (140-400) K/mcL Neutrophils # 2.7 (1.6-8.9) K/mcL BMP 05/23/18 11:37 Sodium 141 Potassium 5.4 H Chloride 115 H Carbon Dioxide 19 L BUN 47 H Creatinine 1.93 H Glucose 160 H Calcium 9.4 Liver Function 05/23/18 Range/Units 11:37 Total Bilirubin 0.3 (0.3-1.0) mg/dL AST 22 (13-39) Units/L ALT 29 (7-52) Units/L Alkaline Phosphatase 34 (34-104) Units/L Albumin 4.1 (3.5-5.7) g/dL Urine 05/23/18 Range/Units 11:40 Urine Color Yellow (Yellow) Urine Clarity Clear (Clear) Urine pH 5.5 (5.0-8.0) pH Units Ur Specific [place] 1.027 H (1.010-1.025) Urine Protein >=1000 H (Neg-Trace) mg/dL Urine Glucose (UA) Normal (Normal) mg/dL - Impressions ITS Impressions Chest X-Ray 05/23/18 11:30 IMPRESSION: No acute cardiopulmonary disease. D/ / Chris Boggs MD / Chris Boggs MD Interpreting Provider: Chris Boggs MD - Assessment and plan (1) Hypertension Current Visit: No Status: Chronic Qualifiers: Hypertension type: essential hypertension Qualified Code(s): I10 - Essential (primary) hypertension (2) Diabetes Current Visit: No Status: Chronic Qualifiers: Diabetes mellitus type: type 2 Diabetes mellitus termite control representative insulin use: with termite control representative use Diabetes mellitus complication status: without complication Qualified Code(s): E11.9 - Type 2 diabetes mellitus without complications; Z79.4 - [facility] (current) use of insulin (3) Acute kidney injury Current Visit: No Status: Resolved (4) DVT prophylaxis Current Visit: No Status: Acute (5) Hyperkalemia Current Visit: Yes Status: Acute (6) 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 (7) Lymphoma in remission Current Visit: Yes Status: Acute (8) Thrombocytopenia Current Visit: Yes Status: Acute - Time Spent With Patient Total time spent is greater than 50% in coordination of care (as documented) at patient's floor/unit and/or counseling patient: - Attending Attestation I examined this patient and my medical decision-making was reviewed with the Resident Physician Dr Cervantes and [place]. I agree with the documented findings, disposition and treatment plan as described except to the extent set forth below. Mr Tariq has pmhx HTN, DM on insulin, renal disease not previously specified in review of inpt records, but hx of proteinuria and AKIs, sees Dr Avalos outpt, CAD, Thyroid disease. He presented to ED at request of his supervisor veneer for worsening kidney function and decreased urine output. He is being observed for NANCY and hyperkalemia. awake, at bedside. no cp, palpitations, sob, presyncope. He is noting urinary outptu is not changed over the last 3 months. Urinating 3x during day and 5-6x at night. + hesitancy, no urgency, dysuria, hematuria or supra pubic pain. gen- alert, awake,appears stated age eyes- pupils equal round cv- reg rate and rhythm, normal s1,s2, no murmurs appreciated, no le edema lungs- ctabl, no wheezing, rhonchi or crackles neuro- AAOx3, CN grossly intact, no focal deficits NANCY- creat 2.31 outpt 1212, 1.93 today and previously within normal range Fibrillary Glomerulonephritis with nephrotic syndrome hx -IVFs, urine studies, rule out obstruction with bladder scan/pvr and renal US, cont flomax, strict i/os -consult pt outpt nephro Hyperkalemia 5.4- no ekg checked in ED, cehcked on arrival to floor and no acute changes- kayexalate DM- on januvia and 70/30 insulin at home- levemir + ssi here an adjust as needed HTN, CAD- stable -cont asa, statin, hold acei, cont bb Chronic thrombocytopenia on chart review- baseline in march 120-130- currently 100- he has hx of hematuria in past, monitor for active bleeding, will attempt heprain sq for vte ppx, and cont to monitor further diagnoses and treatment as noted by the resident
--- NOTE | 2018-05-23 16:06 | Event Note ---
Date of Encounter: 05/23/18 Time of Encounter: 16:15 To serve as attestation awaiting completion of resident H&P Pt seen and examined and case discussed with resident I examined this patient and my medical decision-making was reviewed with the Resident Physician Dr Cervantes. I agree with the documented findings, disposition and treatment plan as described except to the extent set forth below. Mr Tariq has pmhx HTN, DM on insulin, renal disease not previously specified in review of inpt records, but hx of proteinuria and AKIs, sees Dr Avalos outpt, CAD, Thyroid disease. 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 He is being observed for NANCY and hyperkalemia. awake, at bedside. no cp, palpitations, sob, presyncope. He is noting urinary outptu is not changed over the last 3 months. Urinating 3x during day and 5-6x at night. + hesitancy, no urgency, dysuria, hematuria or supra pubic pain. gen- alert, awake,appears stated age eyes- pupils equal round cv- reg rate and rhythm, normal s1,s2, no murmurs appreciated, no le edema lungs- ctabl, no wheezing, rhonchi or crackles neuro- AAOx3, CN grossly intact, no focal deficits NANCY- creat 2.31 outpt 05/18, 1.93 today and previously within normal range Fibrillary Glomerulonephritis with nephrotic syndrome hx -IVFs, urine studies, rule out obstruction with bladder scan/pvr and renal US, cont flomax, strict i/os -consult pt outpt nephro Hyperkalemia 5.4- no ekg checked in ED, cehcked on arrival to floor and no acute changes- kayexalate DM- on januvia and 70/30 insulin at home- levemir + ssi here an adjust as needed HTN, CAD- stable -cont asa, statin, hold acei, cont bb Chronic thrombocytopenia on chart review- baseline in march 120-130- currently 100- he has hx of hematuria in past, monitor for active bleeding, will attempt heprain sq for vte ppx, and cont to monitor further diagnoses and treatment as noted by the resident
[2018-05-23] MEDS ORDERED: Naloxone 0.4 MG/ML INJ IVP PRN (16:15)
[2018-05-23] MEDS ORDERED: *HR* Dextrose 50 % in Water (Syg) 50 ML SYRINGE IVP PRN (16:22)
[2018-05-23] MEDS ORDERED: Dextrose Gel 15 GM/37.5 ML TUBE PO PRN ×2 (16:22)
[2018-05-23] MEDS ORDERED: D5% in Water 1,000 ML IVC PRN (16:22)
[2018-05-23] MEDS ORDERED: Acetaminophen 325 MG TABLET PO PRN (16:22)
[2018-05-23 16:49] LABS: Thyroid Stimulating Hormone 0.864 mcIU/mL (0.340-5.600)
[2018-05-23] MEDS: *HR* Heparin 5,000 UNIT/ML VIAL SQ SCH (17:40)
[2018-05-23] MEDS: Insulin LISPRO 300 UNITS/3 ML VIAL SQ SCH (17:40)
[2018-05-23] MEDS: Ringers Solution, Lactated 1,000 ML IVC SCH (17:41)
[2018-05-23] MEDS: *HR* HYDROcodone/Acet 7.5/325 mg TABLET PO PRN (18:21)
[2018-05-23] MEDS ORDERED: Insulin LISPRO 300 UNITS/3 ML VIAL SQ SCH (21:00)
[2018-05-23] MEDS: tiZANidine 4 MG TABLET PO SCH (22:15)
[2018-05-23] MEDS: Insulin DETEMIR 100 UNIT/ML X5UNITS SQ SCH (22:15)
[2018-05-24] MEDS: *HR* HYDROcodone/Acet 7.5/325 mg TABLET PO PRN ×2 (00:31→17:27)
[2018-05-24] MEDS ORDERED: Acetaminophen IV 1,000 MG/100 ML INFUS..BTL IVPB ONE (03:03)
[2018-05-24 05:46] LABS: Basophils % 1.3 %; Hemoglobin 11.7 g/dL (12.9-16.9); Monocytes % 13.9 %
[2018-05-24 05:48] LABS: Basophils # 0.1 K/mcL (0.0-0.2); Eosinophils # 0.3 K/mcL (0.0-0.6); Hematocrit 34.8 % (37.5-50.1); Immature Granulocytes % 1.5 % (0-4); Immature Platelets 3.1 % (1.1-6.1); Lymphocytes # 1.1 K/mcL (0.6-4.6); Lymphocytes % 27.5 %; Mean Corpuscular HGB Conc 33.6 g/dL (31.6-35.5); Mean Corpuscular Hemoglobin 30.3 pg (28.0-33.3); Mean Corpuscular Volume 90.2 fL (83.0-100.0); Mean Platelet Volume 10.3 fL (9.4-12.4); Monocytes # 0.5 K/mcL (0.0-1.3); Neutrophils # 1.9 K/mcL (1.6-8.9); Red Blood Count 3.86 M/mcL (4.19-5.50); Segmented Neutrophils % 47.8 %
[2018-05-24 05:57] LABS: Platelet Count 93 K/mcL (140-400)
[2018-05-24 06:00] LABS: Calcium 8.7 mg/dL (8.6-10.3); Potassium 6.1 mEq/L (3.5-5.1)
[2018-05-24] MEDS: *HR* Heparin 5,000 UNIT/ML VIAL SQ SCH ×2 (06:01→17:23)
[2018-05-24] MEDS: Ringers Solution, Lactated 1,000 ML IVC SCH ×3 (06:03→14:31)
[2018-05-24] MEDS ORDERED: Insulin Human Regular 10 UNIT in 0.9 % Sodium Chloride 10 ML IV ONE (06:16)
[2018-05-24] MEDS ORDERED: *HR* Dextrose 50 % in Water (Syg) 50 ML SYRINGE IVP ONE (06:17)
[2018-05-24] MEDS ORDERED: Albuterol 2.5 MG/3 ML NEBULIZER IH ONE (06:18)
--- NOTE | 2018-05-24 07:09 | Internal Med Progress Note ---
Hospitalist Progress Note - Encounter Date of Encounter: 05/24/18 - Exam Vitals: Temp Pulse Resp BP Pulse Ox 97.7 F 60 16 121/77 97 05/24/18 02:51 05/24/18 06:43 05/24/18 06:43 05/24/18 06:43 05/24/18 06:43 - Assessment and Plan (1) Acute kidney injury Current Visit: No Status: Resolved (2) 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 (3) Hyperkalemia Current Visit: Yes Status: Acute (4) Lymphoma in remission Current Visit: Yes Status: Acute (5) Thrombocytopenia Current Visit: Yes Status: Acute (6) Hypertension Current Visit: No Status: Chronic (7) Diabetes Current Visit: No Status: Chronic (8) DVT prophylaxis Current Visit: No Status: Acute - Time Spent with Patient Total time spent is greater than 50% in coordination of care (as documented) at patient's floor/unit and/or counseling patient: Internal Medicine: Result - Labs CBC & Chem 7: 05/24/18 05:13 05/24/18 05:13 Labs: Short CBC 05/23/18 05/24/18 Range/Units 11:37 05:13 WBC 5.1 3.9 L (4.3-11.1) K/mcL Hgb 13.1 11.7 L (12.9-16.9) g/dL Hct 39.4 34.8 L (37.5-50.1) % Plt Count 100 L 93 L (140-400) K/mcL Neutrophils # 2.7 1.9 (1.6-8.9) K/mcL BMP 05/23/18 05/24/18 11:37 05:13 Sodium 141 137 Potassium 5.4 H 6.1 H Chloride 115 H 112 H Carbon Dioxide 19 L 18 L BUN 47 H 45 H Creatinine 1.93 H 2.06 H Glucose 160 H 83 Calcium 9.4 8.7 Liver Function 05/23/18 Range/Units 11:37 Total Bilirubin 0.3 (0.3-1.0) mg/dL AST 22 (13-39) Units/L ALT 29 (7-52) Units/L Alkaline Phosphatase 34 (34-104) Units/L Albumin 4.1 (3.5-5.7) g/dL Urine 05/23/18 Range/Units 11:40 Urine Color Yellow (Yellow) Urine Clarity Clear (Clear) Urine pH 5.5 (5.0-8.0) pH Units Ur Specific [place] 1.027 H (1.010-1.025) Urine Protein >=1000 H (Neg-Trace) mg/dL Urine Glucose (UA) Normal (Normal) mg/dL - Impressions Impressions Chest X-Ray 05/23/18 11:30 IMPRESSION: No acute cardiopulmonary disease. D/ / Chris Boggs MD / Chris Boggs MD Interpreting Provider: Chris Boggs MD Retroperitoneum Ultrasound 05/23/18 20:00 IMPRESSION: Unremarkable ultrasound of the kidneys and urinary bladder. D/ / Guillaume Harman MD / Guillamue Harman MD Interpreting Provider: Guillaume Harman MD Consult Discharge Plan - Plan Referrals: Jeff Cordova MD [Primary Care Provider] - _ (6) Hypertension Qualifiers: Hypertension type: essential hypertension Qualified Code(s): I10 - Essential (primary) hypertension (7) Diabetes Qualifiers: Diabetes mellitus type: type 2 Diabetes mellitus jail insulin use: with jail use Diabetes mellitus complication status: without complication Qualified Code(s): E11.9 - Type 2 diabetes mellitus without complications; Z79.4 - manager terminal (current) use of insulin
[2018-05-24] MEDS: Insulin LISPRO 300 UNITS/3 ML VIAL SQ SCH ×4 (07:40→20:33)
[2018-05-24] MEDS: tiZANidine 4 MG TABLET PO SCH ×3 (08:21→20:44)
[2018-05-24] MEDS: Aspirin Enteric Coated 81 MG Tablet PO SCH (08:21)
[2018-05-24] MEDS: amLODIPine 5 MG TABLET PO SCH (08:21)
[2018-05-24] MEDS: Fenofibrate 54 MG TABLET PO SCH (08:21)
--- NOTE | 2018-05-24 08:46 | Electrocardiograph Report ---
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
--- NOTE | 2018-05-24 08:55 | Internal Med Progress Note ---
<Danni Su R - Last Filed: 05/24/18 11:58> Hospitalist Progress Note - Encounter Date of Encounter: 05/24/18 Time of Encounter: 07:30 - Subjective Interval History: Pt seen and examined at bedside. Reports feeling about the same as . Admits 2x episodes of chest pain this am. Radiates to left chest. Described as sharp. Not brought on by anything. Denies palpitations, dyspnea, cough, radiation of pain to jaw or arm. Admits to 3x BM last night. Overnight nurse reported bigeminyon monitor, rythm strip not recorded. Subsequent EKG obtained this am. - Exam Vitals: Temp Pulse Resp BP Pulse Ox 97.7 F 60 16 121/77 97 05/24/18 02:51 05/24/18 06:43 05/24/18 06:43 05/24/18 06:43 05/24/18 06:43 Exam: Vitals noted Alert, NAD Head atraumatic, normocephalic RRR, no murmurs or gallops appreciated Lungs CTA bilat, no wheezing or rhonchi Chest pain to sitting up and to palpation LE w/o edema - Assessment and Plan (1) Acute kidney injury Current Visit: No Status: Acute Assessment and Plan: 53-year-old male with a history of fibrillary glomerulonephritis present for his second incidence of NANCY the last 2 months. Patient was received followed by glomerular nephritis clinic at [facility] and was on cyclophosphamide but this was discontinued due to adverse reaction. Patient was met in the hospital in March 2018 for chest pain, at that time was found to have an NANCY which was successfully treated. Patient followed up with outpatient nephrology and obtain lab work last week which resulted with an elevated creatinine. Patient was advised to be admitted to the hospital for further evaluation, workup, and nadia tment. Hx BPH, DM, HLD, HTN NANCY without history of CKD. Calculatd FeNa - 0.9%, consistent with prerenal etiol Retroperitoneal US neg for hydronephrosis and significant post void residual Cr 2.06, up from 1.93 yesterday. This small increase in creatine could be due to kayexalate stimulated BM in setting of hypovolemia as creatine was trending down from 2.31 prior to admission. Plan: Cont IVF with lactated Ringer's increase rate to 125/hr Will stop after total of 3L (2) 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 Assessment and Plan: History of fibrillary glomerulonephritis with nephrotic syndrome according to [facility] records. It is possible patient's NANCY is secondary to his underlying condition v prerenal nancy in setting of established fibrillary GN. Does not have a history of CAD. Previous treated with cyclophosphamide which was discontinued. Nancy not improving, Cr 2.06 today compared to 1.93 on admission Plan: Nephrology consultation for further recommendation Will treat NANCY with IV hydration. Cont to monitor for improvement (3) Hyperkalemia Current Visit: Yes Status: Acute Assessment and Plan: Presented with hyperkalemia with potassium 5.4. Patient has been borderline high in the past. He is on lisinopril as outpatient and has underlying renal disease. EKG performed on the floor does not show any evidence for spiked T waves or QRS prolongation. Suspect hyperkalemia due to NANCY and will improve with resolution nancy. Was given 15gm Kayexalate upon admission. Reproted 3x BM overnight K at 5am was 6.1 45 gm total kayexalate given. Repeat potassium 5.1 Night nurse reported episode of bigeminy at 00:37 05/24. EKG obtained at ~07:30 on 05/24/18 demonstrated NSR, no change from EKGs obtained on 05/23. Plan: We will continue to monitor K. Next check BMP at 10:30. additional Kayexalate 45 mg given Holding lisinopril. (4) Lymphoma in remission Current Visit: Yes Status: Acute Assessment and Plan: History of lymphoma status post chemotherapy in 2016. Patient states that his malignancy is in remission and he has routine follow-up with Dr. Walker as outpatient. (5) Hypertension Current Visit: No Status: Chronic Assessment and Plan: History of hypertension, borderline hypertension emergency department. Plan: We will hold lisinopril due to NANCY continue metoprolol and amlodipine (6) Diabetes Current Visit: No Status: Chronic Assessment and Plan: Nurse reported hypoglycemic episode 05/24/18 am. Glucose 68. Patient eating and alert. Dextrose 50% 25mL IVP given. A1C 5.9% Plan: Diabetic and renal diet Sliding-scale insulin low dose A1C ordered Cont Tricor and Lipitor Dextrose 5% 1000ml at 100mL/hr q 10 h PRN (7) Chest pain Current Visit: No Status: Acute Assessment and Plan: Pt reported chest 05/24 am. Pain reproducible with position change and palpation. EGK at 7:30 am on 05/24/18 NSR and unchanged from EKGs on 05/23/18. CXR 05/24/18 no acute cardiopulmonary disease. Trops neg Hx: Heart Cath 03/24: - Right Coronary, Right Posterior Descending Arteries with Right Posterolateral and Acute Marginal branches with 25 % stenosis. - Circumflex, Obtuse Marginal, Left Posterior Descending, and Left Posterolateral Coronary Arteries with 25 % stenosis. Pharmacologic nuclear 2 day stress test on 03/24 showed medium sized, moderate intensity defects in inferior and inferoseptal segments consistent with ischemia. TTE on 03/24 LVEF 55%. Mildly dilated LV. Normal LV wall thickness and function. Mild LVDD, mild MR, mild phtn. No concern for ischemic event. Plan: CXR and trops to r/o cardiac origin Cont BB, ASA and statin (8) Thrombocytopenia Current Visit: Yes Status: Acute Assessment and Plan: Likely secondary to patient's history of malignancy. Plt 100 on admission, 93 today Plan: We will continue to monitor. DVT Prophylaxis: Subcutaneous heparin 5000 units every 12. - Time Spent with Patient Total time spent is greater than 50% in coordination of care (as documented) at patient's floor/unit and/or counseling patient: Internal Medicine: Result - Labs CBC & Chem 7: 05/24/18 05:13 05/24/18 09:30 Labs: Short CBC 05/23/18 05/24/18 Range/Units 11:37 05:13 WBC 5.1 3.9 L (4.3-11.1) K/mcL Hgb 13.1 11.7 L (12.9-16.9) g/dL Hct 39.4 34.8 L (37.5-50.1) % Plt Count 100 L 93 L (140-400) K/mcL Neutrophils # 2.7 1.9 (1.6-8.9) K/mcL BMP 05/23/18 05/24/18 11:37 05:13 Sodium 141 137 Potassium 5.4 H 6.1 H Chloride 115 H 112 H Carbon Dioxide 19 L 18 L BUN 47 H 45 H Creatinine 1.93 H 2.06 H Glucose 160 H 83 Calcium 9.4 8.7 Liver Function 05/23/18 Range/Units 11:37 Total Bilirubin 0.3 (0.3-1.0) mg/dL AST 22 (13-39) Units/L ALT 29 (7-52) Units/L Alkaline Phosphatase 34 (34-104) Units/L Albumin 4.1 (3.5-5.7) g/dL Urine 05/23/18 Range/Units 11:40 Urine Color Yellow (Yellow) Urine Clarity Clear (Clear) Urine pH 5.5 (5.0-8.0) pH Units Ur Specific [place] 1.027 H (1.010-1.025) Urine Protein >=1000 H (Neg-Trace) mg/dL Urine Glucose (UA) Normal (Normal) mg/dL - Impressions Impressions Chest X-Ray 05/23/18 11:30 IMPRESSION: No acute cardiopulmonary disease. D/ / Chris Boggs MD / Chris Boggs MD Interpreting Provider: Chris Boggs MD Retroperitoneum Ultrasound 05/23/18 20:00 IMPRESSION: Unremarkable ultrasound of the kidneys and urinary bladder. D/ / Guillaume Harman MD / Guillaume Harman MD Interpreting Provider: Guillaume Harman MD Chest X-Ray 05/24/18 07:50 IMPRESSION: 1. No acute cardiopulmonary disease. D/ / 05/24/2018 08:44:39 Monica Garcia MD / isabel Interpreting Provider: Monica Garcia MD Consult Discharge Plan - Plan Referrals: Jeff Cordova MD [Primary Care Provider] - <Oscar Whelan - Last Filed: 05/24/18 14:10> Hospitalist Progress Note - Encounter Date of Encounter: 05/24/18 - Exam Vitals: Temp Pulse Resp BP Pulse Ox 97.9 F 71 14 131/79 95 05/24/18 12:41 05/24/18 12:41 05/24/18 12:41 05/24/18 12:41 05/24/18 12:41 - Assessment and Plan (1) Hypertension Current Visit: No Status: Chronic (2) Diabetes Current Visit: No Status: Chronic (3) Acute kidney injury Current Visit: No Status: Acute (4) DVT prophylaxis Current Visit: No Status: Acute (5) Hyperkalemia Current Visit: Yes Status: Acute (6) 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 (7) Lymphoma in remission Current Visit: Yes Status: Acute (8) Thrombocytopenia Current Visit: Yes Status: Acute - Time Spent with Patient Total time spent is greater than 50% in coordination of care (as documented) at patient's floor/unit and/or counseling patient: Internal Medicine: Result - Labs CBC & Chem 7: 05/24/18 05:13 05/24/18 09:30 Labs: Short CBC 05/24/18 Range/Units 05:13 WBC 3.9 L (4.3-11.1) K/mcL Hgb 11.7 L (12.9-16.9) g/dL Hct 34.8 L (37.5-50.1) % Plt Count 93 L (140-400) K/mcL Neutrophils # 1.9 (1.6-8.9) K/mcL BMP 05/23/18 05/24/18 05/24/18 11:37 05:13 09:30 Sodium 141 137 142 Potassium 5.4 H 6.1 H 5.1 Chloride 115 H 112 H 115 H Carbon Dioxide 19 L 18 L 20 L BUN 47 H 45 H 46 H Creatinine 1.93 H 2.06 H 2.01 H Glucose 160 H 83 97 Calcium 9.4 8.7 9.2 Cardiac Enzymes 05/24/18 Range/Units 09:30 Troponin I < 0.03 (< 0.04) ng/mL Liver Function 05/23/18 Range/Units 11:37 Total Bilirubin 0.3 (0.3-1.0) mg/dL AST 22 (13-39) Units/L ALT 29 (7-52) Units/L Alkaline Phosphatase 34 (34-104) Units/L Albumin 4.1 (3.5-5.7) g/dL - Impressions Impressions Retroperitoneum Ultrasound 05/23/18 20:00 IMPRESSION: Unremarkable ultrasound of the kidneys and urinary bladder. D/ / Guillaume Harman MD / Guillaume Harman MD Interpreting Provider: Guillaume Harman MD Chest X-Ray 05/24/18 07:50 IMPRESSION: 1. No acute cardiopulmonary disease. D/ / 05/24/2018 08:44:39 Monica Garcia MD / isabel Interpreting Provider: Monica Garcia MD - Attending Attestation The history, physical exam, and medical decision making was performed by the [place] dical student either while I was physically present and actively involved or I personally re-performed the exam and medical decision making. I have verified the accuracy of the medical student's documentation with regards to the history, physical exam findings, and medical decision making on 05/24/18. Mr Tariq is currently in observation for acute renal failure with hx of fibrillary GN and hyperkalemia. He remains moderate to high risk due to potential for worsening clinical status. Mr Tariq feels OK. He had some chest pain this AM - EKG and troponin negative. Recent cath negative as well. Potassium higher today and given Kayexalate. Recheck is lower but creatinine is higher today than yesterday. No fever or chills. Exam alert Comfortable Mucus membranes dry Heart reg and not tachycardic No wheeze. Good effort. Abd soft Moves all extremities. No edema I/P 1. NANCY - receiving fluids. Hx of GN. Appreciate renal input. 2. Hyperkalemia - treated. 3. Chest pain - resolved. Neg cath recently. Agree with assessment as above. 4. Fibrillary GN - 5. Lymphoma in remission 6. HTN - controlled at this time 7. DM - controlled. Further diagnoses and plan as above. <Danni Su R - Last Filed: 05/24/18 11:58> (5) Hypertension Qualifiers: Hypertension type: essential hypertension Qualified Code(s): I10 - Essential (primary) hypertension (6) Diabetes Qualifiers: Diabetes mellitus type: type 2 Diabetes mellitus fci insulin use: with fci use Diabetes mellitus complication status: without complication Qualified Code(s): E11.9 - Type 2 diabetes mellitus without complications; Z79.4 - correction (current) use of insulin (7) Chest pain Qualifiers: Chest pain type: unspecified Qualified Code(s): R07.9 - Chest pain, unspecified <Oscar Whelan - Last Filed: 05/24/18 14:10> (1) Hypertension Qualifiers: Hypertension type: essential hypertension Qualified Code(s): I10 - Essential (primary) hypertension (2) Diabetes Qualifiers: Diabetes mellitus type: type 2 Diabetes 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
[2018-05-24 10:20] LABS: BUN/Creatinine Ratio 23 (6-26); Blood Urea Nitrogen 46 mg/dL (6-20); Calcium 9.2 mg/dL (8.6-10.3); Carbon Dioxide 20 mEq/L (23-29); Chloride 115 mEq/L (98-107); Glucose 97 mg/dL (70-105); Osmolality,Calculated 306 (280-300); Potassium 5.1 mEq/L (3.5-5.1); Sodium 142 mEq/L (136-145); Troponin I < 0.03 ng/mL (< 0.04); eGFR For Non-African Americans 35 (> 60)
[2018-05-24 10:49] LABS: Estimated Average Glucose 123 mg/dl; Hemoglobin A1C 5.9 %
[2018-05-24] MEDS: Sodium Bicarbonate 50 MEQ in 0.45 % Sodium Chloride 1,000 ML IVC SCH (15:56)
--- NOTE | 2018-05-24 17:46 | Electrocardiograph Report ---
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
--- NOTE | 2018-05-24 18:00 | Electrocardiograph Report ---
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
[2018-05-24] MEDS: Insulin DETEMIR 100 UNIT/ML X5UNITS SQ SCH (20:44)
[2018-05-25] MEDS: Sodium Bicarbonate 50 MEQ in 0.45 % Sodium Chloride 1,000 ML IVC SCH (02:11)
[2018-05-25] MEDS: *HR* Heparin 5,000 UNIT/ML VIAL SQ SCH ×2 (05:12→17:46)
[2018-05-25 05:14] LABS: Mean Corpuscular Volume 89.2 fL (83.0-100.0)
[2018-05-25 05:16] LABS: Basophils % 1.1 %; Eosinophils # 0.3 K/mcL (0.0-0.6); Hemoglobin 11.1 g/dL (12.9-16.9); Immature Granulocytes % 1.7 % (0-4); Immature Platelets 3.2 % (1.1-6.1); Lymphocytes # 0.9 K/mcL (0.6-4.6); Lymphocytes % 24.5 %; Mean Corpuscular HGB Conc 33.6 g/dL (31.6-35.5); Mean Platelet Volume 10.2 fL (9.4-12.4); Monocytes # 0.4 K/mcL (0.0-1.3); Monocytes % 11.3 %; Neutrophils # 1.9 K/mcL (1.6-8.9); Red Cell Distribution Width 13.7 % (11.5-14.5); Segmented Neutrophils % 53.4 %
[2018-05-25 05:19] LABS: Platelet Count 87 K/mcL (140-400)
[2018-05-25 05:33] LABS: Calcium 9.1 mg/dL (8.6-10.3); Magnesium 1.8 mg/dL (1.6-2.6); Potassium 5.1 mEq/L (3.5-5.1)
[2018-05-25] MEDS: Insulin LISPRO 300 UNITS/3 ML VIAL SQ SCH ×4 (07:35→21:47)
[2018-05-25] MEDS: amLODIPine 5 MG TABLET PO SCH (08:05)
[2018-05-25] MEDS: Aspirin Enteric Coated 81 MG Tablet PO SCH (08:05)
[2018-05-25] MEDS: tiZANidine 4 MG TABLET PO SCH ×3 (08:05→21:45)
[2018-05-25] MEDS: Fenofibrate 54 MG TABLET PO SCH (08:10)
[2018-05-25] MEDS: *HR* HYDROcodone/Acet 7.5/325 mg TABLET PO PRN ×3 (08:11→21:46)
--- NOTE | 2018-05-25 13:52 | Internal Med Progress Note ---
Hospitalist Progress Note - Encounter Date of Encounter: 05/25/18 - Subjective Interval History: Pt seen and examined at bedside. Reports feeling about the same as . Admits 2x episodes of chest pain this am. Radiates to left chest. Described as sharp. Not brought on by anything. Denies palpitations, dyspnea, cough, radiation of pain to jaw or arm. Admits to 3x BM last night. Overnight nurse reported bigeminyon monitor, rythm strip not recorded. Subsequent EKG obtained this am. - Exam Vitals: Temp Pulse Resp BP Pulse Ox 97.8 F 71 16 104/62 95 05/25/18 11:27 05/25/18 11:27 05/25/18 11:27 05/25/18 11:27 05/25/18 11:27 - Assessment and Plan (1) Acute kidney injury Current Visit: No Status: Acute (2) 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 (3) Hyperkalemia Current Visit: Yes Status: Acute (4) Lymphoma in remission Current Visit: Yes Status: Acute (5) Hypertension Current Visit: No Status: Chronic (6) Diabetes Current Visit: No Status: Chronic (7) Chest pain Current Visit: No Status: Acute (8) Thrombocytopenia Current Visit: Yes Status: Acute - Time Spent with Patient Total time spent is greater than 50% in coordination of care (as documented) at patient's floor/unit and/or counseling patient: Internal Medicine: Result - Labs CBC & Chem 7: 05/25/18 04:51 05/25/18 04:51 Labs: Short CBC 05/25/18 Range/Units 04:51 WBC 3.6 L (4.3-11.1) K/mcL Hgb 11.1 L (12.9-16.9) g/dL Hct 33.0 L (37.5-50.1) % Plt Count 87 L (140-400) K/mcL Neutrophils # 1.9 (1.6-8.9) K/mcL BMP 05/25/18 04:51 Sodium 141 Potassium 5.1 Chloride 114 H Carbon Dioxide 23 BUN 38 H Creatinine 1.63 H Glucose 97 Calcium 9.1 Consult Discharge Plan - Plan Referrals: Jeff Cordova MD [Primary Care Provider] - 06/03/18 12:00 pm (5) Hypertension Qualifiers: Hypertension type: essential hypertension Qualified Code(s): I10 - Essential (primary) hypertension (6) Diabetes Qualifiers: Diabetes mellitus type: type 2 Diabetes mellitus custodial insulin use: with terminologist use Diabetes mellitus complication status: without complication Qualified Code(s): E11.9 - Type 2 diabetes mellitus without complications; Z79.4 - jail (current) use of insulin (7) Chest pain Qualifiers: Chest pain type: unspecified Qualified Code(s): R07.9 - Chest pain, unspecified
--- NOTE | 2018-05-25 14:16 | Nephrology Consult Note ---
Date of Encounter: 05/23/18 Time of Encounter: 17:00 Assessment and Plan (1) Acute kidney injury superimposed on chronic kidney disease Current Visit: Yes Status: Acute Patient with acute kidney injury superimposed on chronic kidney disease that is likely secondary to volume depletion. Agree with intravenous hydration. Attempt to find out what is going on with his abdomen. Avoid nephrotoxic agents. Titrate medication as needed. (2) Abdominal pain Current Visit: Yes Status: Acute We will defer to primary team. 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 (4) Hypertension Current Visit: No Status: Chronic Titrated and tapped his medications as needed. Qualifiers: Hypertension type: essential hypertension Qualified Code(s): I10 - Essential (primary) hypertension History of Present Illness - Reason for Consult Consult date: 05/23/18 Acute Kidney Injury, Chronic Kidney Disease - Chief Complaint NANCY on CKD - History of Present Illness Mr. Tariq is a 53-year-old man with a history of chronic kidney disease secondary to fibrillary glomerulonephritis. He presented with nausea, vomiting, and abdominal discomfort. He reports his abdomen problems have been present and getting worse over the last 6 months. He presented to the hospital where he was found to have acute kidney injury on chronic kidney disease. [place] [facility] was consulted for assistance with evaluation and management. Past Med Surg Social Fam HX - Past Medical History Medical history: arthritis, coronary artery disease, DVT, GERD, hyperlipidemia, kidney stones, osteoporosis, renal disease, thyroid disease, other Additional medical history: hernia Psychiatric history: anxiety, depression - Past Surgical History Surgical History: other Additional surgical history: eye surgery as a child. - Social History Smoking Status: Former smoker Smokeless Tobacco Status: Yes Alcohol use: occasionally Drug use: none - Family History Father Adopted: Yes Mother Family Member Ethnicity: Non- Living Status: Still Living Medications and Allergies Sertraline [Zoloft] 200 mg PO DAILY 03/18/15 [History] Tamsulosin [Flomax] 0.4 mg PO DAILY 03/18/15 [History] Fenofibrate [Lofibra] 160 mg PO DAILY 07/25/15 [History] HYDROcodone/Acet 7.5/325 mg [[place] 7.5-325 mg] 1 tab PO QID 05/21/17 [History] SitaGLIPtin [Januvia] 100 mg PO DAILY 05/21/17 [History] Tizanidine HCl [Zanaflex] 4 mg PO TID 05/21/17 [History] Aspirin [Adult Aspirin] 81 mg PO DAILY 03/09/18 [History] Atorvastatin [Lipitor] 40 mg PO HS 03/09/18 [History] Insulin Aspart Prot/Insuln Asp [Novolog Mix 70-30 Vial] 15 unit SQ QPM 03/09/18 [History] Insulin Aspart Prot/Insuln Asp [Novolog Mix 70-30 Vial] 20 unit SQ QAM 03/09/18 [History] Magnesium Oxide [Magnesium] 400 mg PO BID 03/09/18 [History] Lisinopril [Zestril] 10 mg PO DAILY 30 Days #30 tablet 03/15/18 [Rx] Metoprolol [Lopressor] 25 mg PO BID 30 Days #60 tablet 03/15/18 [Rx] Amlodipine Besylate 10 mg PO DAILY 05/23/18 [History] Febuxostat [Uloric] 40 mg PO DAILY 05/23/18 [History] Levothyroxine [Synthroid] 125 mcg PO QAM 05/23/18 [History] Allergy/AdvReac Type Severity Reaction Status Date / Time No Known Allergies Allergy Verified 05/21/17 12:01 Review of Systems All Systems: reviewed and no additional remarkable complaints except as stated (as per history of present) Exam - Vital Signs Vital signs: Initial Vital Signs Temp Pulse Resp BP Pulse Ox 98.0 F 71 18 142/87 98 05/23/18 11:10 05/23/18 11:10 05/23/18 11:10 05/23/18 11:10 05/23/18 11:10 Vital Signs - Last 8 Hours Temp Pulse Resp BP Pulse Ox 05/25/18 11:27 97.8 F 71 16 104/62 95 05/25/18 06:53 97.6 F 72 16 143/74 96 Intake and Output 05/24/18 05/25/18 05/25/18 23:59 07:59 15:59 Intake Total 750 / 750 1050 / 1050 1530 / 1530 Output Total 1450 / 1450 400 / 400 800 / 800 Balance -700 / -700 650 / 650 730 / 730 Intake: IV Fluids 200 / 200 1050 / 1050 1050 / 1050 Lactated Ringers 1,000 ML @ 125 200 / 200 mls/hr IVC .Q8H ZANE Rx#: [id number] Sodium Bicarbonate 50 MEQ In 0. 1050 / 1050 1050 / 1050 45% Sodium Chloride 1000 Ml 1000 Ml 1,000 ML @ 100 mls/hr IVC .[id number] ZANE Rx#:[id number] Oral 550 / 550 480 / 480 Output: Urine 1450 / 1450 400 / 400 800 / 800 Other: Meal Lunch Lunch Percent of Meal Consumed 100% 100% # Voids 2 # Bowel Movements 2 Weight 129.9 kg Blood Glucose* 115 99 133 Patient Weight 05/25/18 23:59 Weight 129.9 kg - General Appearance General appearance: well-developed, well-nourished EENT: ATNC Neck: supple Respiratory: course breath sounds Cardiology: no edema, regular rate Gastrointestinal: tenderness (Diffuse tenderness without rebound), guarding, obese, distended Integumentary: warm and dry Neurologic: alert and oriented x3 Musculoskeletal: no cyanosis Psychiatric: mood/affect appropriate Results - Lab Results 05/25/18 04:51 05/25/18 04:51 Most recent lab results Calcium 9.1 mg/dL (8.6-10.3) 05/25/18 04:51 Magnesium 1.8 mg/dL (1.6-2.6) 05/25/18 04:51 Urine Creatinine 166 mg/dL 05/23/18 17:25 Urine Sodium 109.5 mEq/L 05/23/18 17:25 Consult Discharge Plan - Plan Referrals: Jeff Cordova MD [Primary Care Provider] - 06/03/18 12:00 pm
--- NOTE | 2018-05-25 14:24 | Nephrology Progress Note ---
Date of Encounter: 05/24/18 Time of Encounter: 15:02 - Assessment and Plan (1) Acute kidney injury superimposed on chronic kidney disease Current Visit: Yes Status: Acute Patient with acute kidney injury superimposed on chronic kidney disease that is likely secondary to volume depletion. Renal function is improving with hydration. I recommend giving an additional bolus of fluids. Spoke with the primary team. Avoid nephrotoxic agents. Titrate medication as needed. (2) Abdominal pain Current Visit: Yes Status: Acute Qualifiers: Qualified Code(s): R10.9 - Unspecified abdominal pain (3) 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 (4) Hypertension Current Visit: No Status: Chronic Qualifiers: Hypertension type: essential hypertension Qualified Code(s): I10 - Essential (primary) hypertension Subjective Principal diagnosis: NANCY on CKD Interval history: Patient seen. He has no new complaints. Objective - Vital Signs Vital signs: Vital Signs Temp Pulse Resp BP Pulse Ox 05/25/18 11:27 97.8 F 71 16 104/62 95 05/25/18 06:53 97.6 F 72 16 143/74 96 05/25/18 04:11 97.8 F 70 16 108/73 97 05/24/18 20:25 97 05/24/18 20:08 98.2 F 75 16 122/76 97 05/24/18 16:31 97.8 F 65 16 109/71 97 Intake and Output 05/24/18 05/25/18 05/25/18 23:59 07:59 15:59 Intake Total 750 / 750 1050 / 1050 1530 / 1530 Output Total 1450 / 1450 400 / 400 800 / 800 Balance -700 / -700 650 / 650 730 / 730 Intake: IV Fluids 200 / 200 1050 / 1050 1050 / 1050 Lactated Ringers 1,000 ML @ 125 200 / 200 mls/hr IVC .Q8H ZANE Rx#: [id number] Sodium Bicarbonate 50 MEQ In 0. 1050 / 1050 1050 / 1050 45% Sodium Chloride 1000 Ml 1000 Ml 1,000 ML @ 100 mls/hr IVC .[id number] ZANE Rx#:[id number] Oral 550 / 550 480 / 480 Output: Urine 1450 / 1450 400 / 400 800 / 800 Other: Meal Lunch Lunch Percent of Meal Consumed 100% 100% # Voids 2 # Bowel Movements 2 Weight 129.9 kg Blood Glucose* 115 99 133 Patient Weight 05/25/18 23:59 Weight 129.9 kg - General Appearance General appearance: Present: well-developed, well-nourished EENT: Present: ATNC Neck: Present: supple Cardiology: Present: regular rate Gastrointestinal: Present: obese Neurologic: Present: alert and oriented x3 Musculoskeletal: Present: no cyanosis Psychiatric: Present: mood/affect appropriate - Lab 05/25/18 04:51 05/25/18 04:51 Most recent lab results Calcium 9.1 mg/dL (8.6-10.3) 05/25/18 04:51 Magnesium 1.8 mg/dL (1.6-2.6) 05/25/18 04:51 Urine Creatinine 166 mg/dL 05/23/18 17:25 Urine Sodium 109.5 mEq/L 05/23/18 17:25 Consult Discharge Plan - Plan Referrals: Jeff Cordova MD [Primary Care Provider] - 06/03/18 12:00 pm
--- NOTE | 2018-05-25 14:26 | Nephrology Progress Note ---
Date of Encounter: 05/25/18 Time of Encounter: 14:24 - Assessment and Plan (1) Acute kidney injury superimposed on chronic kidney disease Current Visit: Yes Status: Acute Patient with acute kidney injury superimposed on chronic kidney disease that is likely secondary to volume depletion vs recurrence of underlying GN. Renal function is improving with hydration. I recommend giving an additional bolus of fluids. Spoke with the primary team. Avoid nephrotoxic agents. Titrate medication as needed. (2) Abdominal pain Current Visit: Yes Status: Acute We will defer to primary team. Seems to be improving. 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 (4) Hypertension Current Visit: No Status: Chronic Titrate his medications as needed. Qualifiers: Hypertension type: essential hypertension Qualified Code(s): I10 - Essential (primary) hypertension Subjective Principal diagnosis: NANCY on CKD Interval history: Patient seen. He has no new complaints. His abdominal complaint is getting better. He is eager to go home. Objective - Vital Signs Vital signs: Vital Signs Temp Pulse Resp BP Pulse Ox 05/25/18 11:27 97.8 F 71 16 104/62 95 05/25/18 06:53 97.6 F 72 16 143/74 96 05/25/18 04:11 97.8 F 70 16 108/73 97 05/24/18 20:25 97 05/24/18 20:08 98.2 F 75 16 122/76 97 05/24/18 16:31 97.8 F 65 16 109/71 97 Intake and Output 05/24/18 05/25/18 05/25/18 23:59 07:59 15:59 Intake Total 750 / 750 1050 / 1050 1530 / 1530 Output Total 1450 / 1450 400 / 400 800 / 800 Balance -700 / -700 650 / 650 730 / 730 Intake: IV Fluids 200 / 200 1050 / 1050 1050 / 1050 Lactated Ringers 1,000 ML @ 125 200 / 200 mls/hr IVC .Q8H ZANE Rx#: [id number] Sodium Bicarbonate 50 MEQ In 0. 1050 / 1050 1050 / 1050 45% Sodium Chloride 1000 Ml 1000 Ml 1,000 ML @ 100 mls/hr IVC .[id number] ZANE Rx#:[id number] Oral 550 / 550 480 / 480 Output: Urine 1450 / 1450 400 / 400 800 / 800 Other: Meal Lunch Lunch Percent of Meal Consumed 100% 100% # Voids 2 # Bowel Movements 2 Weight 129.9 kg Blood Glucose* 115 99 133 Patient Weight 05/25/18 23:59 Weight 129.9 kg - General Appearance General appearance: Present: well-developed, well-nourished, obese EENT: Present: ATNC Neck: Present: supple Respiratory: Present: course breath sounds Cardiology: Present: no edema, regular rate, regular rhythm Gastrointestinal: Present: obese Integumentary: Present: warm and dry Neurologic: Present: alert and oriented x3 Musculoskeletal: Present: no cyanosis Psychiatric: Present: mood/affect appropriate - Lab 05/25/18 04:51 05/25/18 04:51 Most recent lab results Calcium 9.1 mg/dL (8.6-10.3) 05/25/18 04:51 Magnesium 1.8 mg/dL (1.6-2.6) 05/25/18 04:51 Urine Creatinine 166 mg/dL 05/23/18 17:25 Urine Sodium 109.5 mEq/L 05/23/18 17:25 Consult Discharge Plan - Plan Referrals: Jeff Cordova MD [Primary Care Provider] - 06/03/18 12:00 pm
--- NOTE | 2018-05-25 17:06 | Internal Med Progress Note ---
<Danni Su R - Last Filed: 05/25/18 17:49> Hospitalist Progress Note - Encounter Date of Encounter: 05/25/18 Time of Encounter: 01:30 - Subjective Interval History: Pt seen and examined at bedside. Reports feeling better. No reported overnight events. - Exam Vitals: Temp Pulse Resp BP Pulse Ox 98.5 F 78 16 118/73 96 05/25/18 15:14 05/25/18 15:14 05/25/18 15:14 05/25/18 15:14 05/25/18 15:14 Exam: Vitals noted Alert, NAD Head atraumatic, normocephalic RRR, no murmurs or gallops appreciated Lungs CTA bilat, no wheezing or rhonchi No Chest pain to palpation LE w/o edema No lymphadenopathy bilat UE - Assessment and Plan (1) Acute kidney injury Current Visit: Yes Status: Acute Assessment and Plan: Etiology still unclear but is likely prerenal and is improving with IVF. 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 Cont to monitor for improvement (3) Hyperkalemia Current Visit: Yes Status: Acute Assessment and Plan: potassium stable at 5.1 Plan: We will continue to monitor K. Cont Holding lisinopril. (4) Lymphoma in remission Current Visit: Yes Status: Acute Assessment and Plan: History of lymphoma status post chemotherapy in 2016. Patient states that his malignancy is in remission and he has routine follow-up with Dr. Walker as outpatient. (5) Hypertension Current Visit: No Status: Chronic Assessment and Plan: History of hypertension, borderline hypertension emergency department. Plan: We will cont to hold lisinopril due to NANCY continue metoprolol and amlodipine (6) Diabetes Current Visit: No Status: Chronic Assessment and Plan: No further hypoglycemic events Plan: Diabetic and renal diet Sliding-scale insulin low dose Cont Tricor and Lipitor Dextrose 5% 1000ml at 100mL/hr q 10 h PRN (7) Chest pain Current Visit: No Status: Acute Assessment and Plan: Not cardiac in origin Plan: Cont BB, ASA and statin Cont to monitor K (8) Thrombocytopenia Current Visit: Yes Status: Acute Assessment and Plan: Likely secondary to patient's history of malignancy. Plt 100 on admission, 87 today No evidence of active bleeding Plan: We will continue to monitor. DVT Prophylaxis: Subcutaneous heparin 5000 units every 12. - Time Spent with Patient Total time spent is greater than 50% in coordination of care (as documented) at patient's floor/unit and/or counseling patient: Internal Medicine: Result - Labs CBC & Chem 7: 05/25/18 04:51 05/25/18 04:51 Labs: Short CBC 05/25/18 Range/Units 04:51 WBC 3.6 L (4.3-11.1) K/mcL Hgb 11.1 L (12.9-16.9) g/dL Hct 33.0 L (37.5-50.1) % Plt Count 87 L (140-400) K/mcL Neutrophils # 1.9 (1.6-8.9) K/mcL BMP 05/25/18 04:51 Sodium 141 Potassium 5.1 Chloride 114 H Carbon Dioxide 23 BUN 38 H Creatinine 1.63 H Glucose 97 Calcium 9.1 Consult Discharge Plan - Plan Referrals: Jeff Cordova MD [Primary Care Provider] - 06/03/18 12:00 pm <Oscar Whelan - Last Filed: 05/25/18 19:50> Hospitalist Progress Note - Encounter Date of Encounter: 05/25/18 - Exam Vitals: Temp Pulse Resp BP Pulse Ox 98.4 F 76 16 159/81 96 05/25/18 19:44 05/25/18 19:44 05/25/18 19:44 05/25/18 19:44 05/25/18 19:44 - Assessment and Plan (1) Hypertension Current Visit: No Status: Chronic (2) Diabetes Current Visit: No Status: Chronic (3) Acute kidney injury Current Visit: Yes Status: Acute (4) DVT prophylaxis Current Visit: No Status: Acute (5) Hyperkalemia Current Visit: Yes Status: Acute (6) 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 (7) Lymphoma in remission Current Visit: Yes Status: Acute (8) Thrombocytopenia Current Visit: Yes Status: Acute - Time Spent with Patient Total time spent is greater than 50% in coordination of care (as documented) at patient's floor/unit and/or counseling patient: Internal Medicine: Result - Labs CBC & Chem 7: 05/25/18 04:51 05/25/18 04:51 Labs: Short CBC 05/25/18 Range/Units 04:51 WBC 3.6 L (4.3-11.1) K/mcL Hgb 11.1 L (12.9-16.9) g/dL Hct 33.0 L (37.5-50.1) % Plt Count 87 L (140-400) K/mcL Neutrophils # 1.9 (1.6-8.9) K/mcL BMP 05/25/18 04:51 Sodium 141 Potassium 5.1 Chloride 114 H Carbon Dioxide 23 BUN 38 H Creatinine 1.63 H Glucose 97 Calcium 9.1 - Attending Attestation The history, physical exam, and medical decision making was performed by the medical student either while I was physically present and actively involved or I personally re-performed the exam and medical decision making. I have verified the accuracy of the medical student's documentation with regards to the history, physical exam findings, and medical decision making on 05/25/18. Mr Tariq is currently admitted for acute renal failure. He remains moderate to high risk due to potential for worsening clinical status. Mr Tariq is resting at this time. No fever or chill. No new issues overnight. Renal function a little better today. Exam alert Comfortable Mucus membranes dry Heart reg and not tachy No wheeze Abd soft Moves all extremities No edema I/P 1. Acute renal failure - slowly improving with IV fluids 2. Hx fibrillary GN 3. Lymphoma hx Further diagnoses and plan as above. 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 insulin use: with termite control service representative use Diabetes mellitus complication status: without complication Qualified Code(s): E11.9 - Type 2 diabetes mellitus without complications; Z79.4 - terminal press operator (current) use of insulin (7) Chest pain Qualifiers: Chest pain type: unspecified Qualified Code(s): R07.9 - Chest pain, unspecified <Oscar Whelan - Last Filed: 05/25/18 19:50> (1) Hypertension Qualifiers: Hypertension type: essential hypertension Qualified Code(s): I10 - Essential (primary) hypertension (2) Diabetes Qualifiers: Diabetes mellitus type: type 2 Diabetes mellitus termite control service representative insulin use: with termite control service representative use Diabetes mellitus complication status: without complication Qualified Code(s): E11.9 - Type 2 diabetes mellitus without complications; Z79.4 - FDC (current) use of insulin
[2018-05-25] MEDS ORDERED: Sodium Bicarbonate 50 MEQ in 0.45 % Sodium Chloride 1,000 ML IVC SCH (17:30)
[2018-05-25] MEDS: Insulin DETEMIR 100 UNIT/ML X5UNITS SQ SCH (21:47)
[2018-05-26 04:10] LABS: Basophils % 1.2 %; Immature Granulocytes % 1.5 % (0-4); Red Blood Count 3.51 M/mcL (4.19-5.50); Red Cell Distribution Width 13.7 % (11.5-14.5)
[2018-05-26 04:12] LABS: Eosinophils # 0.3 K/mcL (0.0-0.6); Eosinophils % 8.3 %; Hematocrit 31.3 % (37.5-50.1); Hemoglobin 10.7 g/dL (12.9-16.9); Immature Platelets 2.6 % (1.1-6.1); Lymphocytes % 29.1 %; Mean Corpuscular HGB Conc 34.2 g/dL (31.6-35.5); Mean Corpuscular Hemoglobin 30.5 pg (28.0-33.3); Mean Corpuscular Volume 89.2 fL (83.0-100.0); Monocytes # 0.4 K/mcL (0.0-1.3); Monocytes % 11.7 %; Neutrophils # 1.6 K/mcL (1.6-8.9); Segmented Neutrophils % 48.2 %
[2018-05-26 04:14] LABS: Platelet Count 90 K/mcL (140-400)
[2018-05-26 04:15] LABS: Platelet Estimate Decreased (Normal)
[2018-05-26 04:29] LABS: Calcium 9.2 mg/dL (8.6-10.3); Magnesium 1.6 mg/dL (1.6-2.6); Potassium 4.9 mEq/L (3.5-5.1)
[2018-05-26] MEDS: *HR* HYDROcodone/Acet 7.5/325 mg TABLET PO PRN ×3 (04:35→21:02)
[2018-05-26] MEDS: *HR* Heparin 5,000 UNIT/ML VIAL SQ SCH ×2 (05:50→17:17)
[2018-05-26] MEDS ORDERED: 0.9 % Sodium Chloride 1,000 ML IVC ONE (07:31)
[2018-05-26] MEDS: Fenofibrate 54 MG TABLET PO SCH (08:08)
[2018-05-26] MEDS: amLODIPine 5 MG TABLET PO SCH (08:08)
[2018-05-26] MEDS: Aspirin Enteric Coated 81 MG Tablet PO SCH (08:10)
[2018-05-26] MEDS: tiZANidine 4 MG TABLET PO SCH ×3 (08:10→21:01)
[2018-05-26] MEDS: Insulin LISPRO 300 UNITS/3 ML VIAL SQ SCH ×4 (08:11→21:01)
--- NOTE | 2018-05-26 09:22 | Internal Med Progress Note ---
<Danni Su R - Last Filed: 05/26/18 13:41> Hospitalist Progress Note - Encounter Date of Encounter: 05/26/18 Time of Encounter: 07:45 - Subjective Interval History: Pt seen and examined at bedside. Reports feeling better overall. Last BM yesterday Denies dyspnea, chest pain, abdominal pain. No reported overnight events per nurse - Exam Vitals: Temp Pulse Resp BP Pulse Ox 98.4 F 68 16 128/87 96 05/26/18 06:59 05/26/18 06:59 05/26/18 06:59 05/26/18 06:59 05/26/18 06:59 Exam: Vitals noted Alert, NAD Head atraumatic, normocephalic Neck without pulsations, good ROM RRR, no murmurs or gallops appreciated Lungs CTA bilat, no wheezing or rhonchi LEs w/o edema - Assessment and Plan (1) Acute kidney injury Current Visit: Yes Status: Acute Assessment and Plan: Creatinine with small increase (1.71 today, up from 1.63 yesterday) NANCY overall responding to fluids since admission, but not as well as expected. Due to patient's hx of lymphoma and resulting fibrillary GN, nephrology recommended consulting oncology. 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 Assessment and Plan: Hx of fibrillary GN - dx in 2016 Plan: As above Further recs per nephrology (3) Hyperkalemia Current Visit: Yes Status: Acute Assessment and Plan: Hyperkalemia stable, K 4.9 today Cont to monitor (4) Lymphoma in remission Current Visit: Yes Status: Acute Assessment and Plan: Hx of lymphoma, in remission since 2016 Plan: Disposition plan for patient to follow with outpatient oncology (5) Hypertension Current Visit: No Status: Chronic Assessment and Plan: BP stable Cont home meds (6) Diabetes Current Visit: No Status: Chronic Assessment and Plan: BS stable 90s or greater No more episodes hypoglycemia Low dose ssi Cont to monitor (7) Thrombocytopenia Current Visit: Yes Status: Acute Assessment and Plan: Was admitted with plt 100. Thrombocytopenia stable at plt 90. Developed pancytopenia since admission and starting fluids. Think is hemodilutional in response to IVF Cont to monitor DVT Prophylaxis: Subcutaneous heparin 5000 units every 12. - Time Spent with Patient Total time spent is greater than 50% in coordination of care (as documented) at patient's floor/unit and/or counseling patient: Internal Medicine: Result - Labs CBC & Chem 7: 05/26/18 03:51 05/26/18 11:32 Labs: Short CBC 05/26/18 Range/Units 03:51 WBC 3.3 L (4.3-11.1) K/mcL Hgb 10.7 L (12.9-16.9) g/dL Hct 31.3 L (37.5-50.1) % Plt Count 90 L (140-400) K/mcL Neutrophils # 1.6 (1.6-8.9) K/mcL BMP 05/26/18 03:51 Sodium 141 Potassium 4.9 Chloride 114 H Carbon Dioxide 21 L BUN 37 H Creatinine 1.71 H Glucose 93 Calcium 9.2 Consult Discharge Plan - Plan Referrals: Jeff Cordova MD [Primary Care Provider] - 06/03/18 12:00 pm <Oscar Whelan - Last Filed: 05/26/18 19:12> Hospitalist Progress Note - Encounter Date of Encounter: 05/26/18 - Exam Vitals: Temp Pulse Resp BP Pulse Ox 98.8 F 72 16 112/68 97 05/26/18 15:48 05/26/18 15:48 05/26/18 15:48 05/26/18 15:48 05/26/18 15:48 - Assessment and Plan (1) Hypertension Current Visit: No Status: Chronic (2) Diabetes Current Visit: No Status: Chronic (3) Acute kidney injury Current Visit: Yes Status: Acute (4) Hyperkalemia Current Visit: Yes Status: Acute (5) 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 (6) Lymphoma in remission Current Visit: Yes Status: Acute (7) Thrombocytopenia Current Visit: Yes Status: Acute (8) CKD (chronic kidney disease), stage III Current Visit: Yes Status: Acute - Time Spent with Patient Total time spent is greater than 50% in coordination of care (as documented) at patient's floor/unit and/or counseling patient: Internal Medicine: Result - Labs CBC & Chem 7: 05/26/18 03:51 05/26/18 11:32 Labs: Short CBC 05/26/18 Range/Units 03:51 WBC 3.3 L (4.3-11.1) K/mcL Hgb 10.7 L (12.9-16.9) g/dL Hct 31.3 L (37.5-50.1) % Plt Count 90 L (140-400) K/mcL Neutrophils # 1.6 (1.6-8.9) K/mcL BMP 05/26/18 05/26/18 03:51 11:32 Sodium 141 141 Potassium 4.9 4.8 Chloride 114 H 113 H Carbon Dioxide 21 L 25 BUN 37 H 37 H Creatinine 1.71 H 1.68 H Glucose 93 123 H Calcium 9.2 9.0 - Attending Attestation The history, physical exam, and medical decision making was performed by the medical student either while I was physically present and actively involved or I personally re-performed the exam and medical decision making. I have verified the accuracy of the medical student's documentation with regards to the history, physical exam findings, and medical decision making on 05/26/18. Mr Tariq is currently admitted for acute on chronic renal failure. He remains moderate risk due to potential for worsening clinical status. Mr Tariq is doing OK. His creatinine is about the same. No fever or chills. No CP or SOB. Exam Alert Comfortable Mucus membranes dry Heart reg and not tachy Lungs clear Abd soft and nontender No edema Moves all extremities I/P 1. Acute renal failure - appears to be at a baseline 2. CKD 3 3. Hx lymphoma 4. Hx of follicular GN Further diagnoses and plan as above. Heme onc to see prior to discharge. <Danni Su R - Last Filed: 05/26/18 13:41> (5) Hypertension Qualifiers: Hypertension type: essential hypertension Qualified Code(s): I10 - Essential (primary) hypertension (6) Diabetes Qualifiers: Diabetes mellitus type: type 2 Diabetes mellitus medical terminologist insulin use: with skilled nursing use Diabetes mellitus complication status: without complication Qualified Code(s): E11.9 - Type 2 diabetes mellitus without complications; Z79.4 - skilled nursing (current) use of insulin <Oscar Whelan - Last Filed: 05/26/18 19:12> (1) Hypertension Qualifiers: Hypertension type: essential hypertension Qualified Code(s): I10 - Essential (primary) hypertension (2) Diabetes Qualifiers: Diabetes mellitus type: type 2 Diabetes mellitus skilled nursing insulin use: with skilled nursing use Diabetes mellitus complication status: without complication Qualified Code(s): E11.9 - Type 2 diabetes mellitus without complications; Z79.4 - skilled nursing (current) use of insulin
--- NOTE | 2018-05-26 09:51 | Nephrology Progress Note ---
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 He has no new complaints. His abdominal complaint is getting better. He is eager to go home. Objective - Vital Signs Vital signs: Vital Signs Temp Pulse Resp BP Pulse Ox 05/26/18 06:59 98.4 F 68 16 128/87 96 05/26/18 04:06 97.7 F 63 16 126/80 95 05/25/18 23:20 98.2 F 66 16 117/70 95 05/25/18 19:44 98.4 F 76 16 159/81 96 05/25/18 15:14 98.5 F 78 16 118/73 96 05/25/18 11:27 97.8 F 71 16 104/62 95 Intake and Output 05/25/18 05/26/18 05/26/18 23:59 07:59 15:59 Intake Total 240 / 240 1720 / 1720 Output Total 550 / 550 1400 / 1400 Balance -310 / -310 -1400 / -1400 1720 / 1720 Intake: IV Fluids 1000 / 1000 0.9 % Sodium Chloride 1,000 ML 1000 / 1000 @ 999 mls/hr IVC .Q1H1M ONE Rx# :[id number] Oral 240 / 240 720 / 720 Output: Urine 550 / 550 1400 / 1400 Other: Meal Dinner Breakfast Percent of Meal Consumed 100% 100% Weight 130.5 kg Blood Glucose* 106 89 Patient Weight 05/26/18 23:59 Weight 130.5 kg - Lab 05/26/18 03:51 05/26/18 03:51 Most recent lab results Calcium 9.2 mg/dL (8.6-10.3) 05/26/18 03:51 Magnesium 1.6 mg/dL (1.6-2.6) 05/26/18 03:51 Urine Creatinine 166 mg/dL 05/23/18 17:25 Urine Sodium 109.5 mEq/L 05/23/18 17:25 Consult Discharge Plan - Plan Referrals: Jeff Cordova MD [Primary Care Provider] - 06/03/18 12:00 pm
[2018-05-26 12:13] LABS: Potassium 4.8 mEq/L (3.5-5.1)
[2018-05-26 13:10] LABS: Protein/Creatinine Ratio,Urine 2.49 mg/mg (0.00-0.20)
--- NOTE | 2018-05-26 14:14 | Discharge Summary ---
<Braulio Cervantes N - Last Filed: 05/27/18 09:11> - NOTES TO OUTPATIENT PROVIDER Notes to Outpatient Provider: follow up on creatinine function. Patient will require close monitoring by nephrology. Also advise continuing evaluation for patient's history of lymphoma with outpatient oncology. Orders not resulted at time of discharge: Pending orders 05/27/18 04:00 BMP [Basic Metabolic Panel] AM 0400 CBC [Complete Blood Count] [HEME] AM 0400 Magnesium AM 0400 05/28/18 04:00 BMP [Basic Metabolic Panel] AM 0400 CBC [Complete Blood Count] [HEME] AM 0400 Magnesium AM 0400 05/29/18 04:00 BMP [Basic Metabolic Panel] AM 0400 CBC [Complete Blood Count] [HEME] AM 0400 Magnesium AM 0400 05/30/18 04:00 BMP [Basic Metabolic Panel] AM 0400 CBC [Complete Blood Count] [HEME] AM 0400 Magnesium AM 0400 Date of Encounter: 05/27/18 Time of Encounter: 14:12 - Discharge Diagnosis (1) Acute kidney injury Priority: Primary Status: Acute Assessment and Plan: 53-year-old male with a history of fibrillary glomerulonephritis presented for his second incidence of NANCY the last 2 months. Patient was followed by glomerular nephritis clinic at [facility] and was on cyclophosphamide but this was discontinued due to adverse reaction. Patient was evaluated in the hospital in March 2018 for chest pain, at that time was found to have an NANCY which was successfully treated. Patient followed up with outpatient nephrology and obtained lab work last week which resulted with an elevated creatinine. Patient was advised to be admitted to the hospital for further evaluation, workup, and treatment. NANCY without history of CKD. Plan: Patient treated with 0.45% saline with bicarb at 75ml/hour. Received 1L bolus of normal saline kidney function improved but not at baseline Nephrology to follow as outpatient Patient evaluated by oncology for his history of lymphoma and recommended continued outpatient follow up for further monitoring. Concern that patient's worsening kidney function in the setting of fibrillary glomerulonephritis may be from history of malignancy. (2) Fibrillary glomerulonephritis Priority: Secondary Status: Chronic Assessment and Plan: History of fibrillary glomerulonephritis per [facility] records. It is possible moshe ent's NANCY is secondary to his underlying condition. Does not have a history of CKD. Previously treated with cyclophosphamide this was discontinued due to adverse reaction. Plan: IV hydration improved creatinine and GFR Consulted oncology for history of lymphoma. (3) Lymphoma in remission Priority: Secondary Status: Acute Assessment and Plan: History of lymphoma status post chemotherapy in 2016. Patient states that his malignancy is in remission and he has routine follow-up as outpatient. Consulted oncology to evaluate the patient prior to discharge. (4) Hyperkalemia Priority: Secondary Status: Acute Assessment and Plan: Presented with hyperkalemia with potassium 5.4. Patient has been borderline high in the past. He is on lisinopril as outpatient and has underlying renal disease. EKG performed on the floor does not show any evidence for spiked T waves or QRS prolongation. Plan: held lisinopril received kayexelate Changed fluids from LR to 0.45% normal saline with bicarb and potassium level improved (5) Hypertension Priority: Secondary Status: Chronic Assessment and Plan: History of hypertension, borderline hypertension emergency department. Plan: We will hold lisinopril due to NANCY continue metoprolol and amlodipine Qualifiers: Hypertension type: essential hypertension Qualified Code(s): I10 - Essential (primary) hypertension (6) Diabetes Priority: Secondary Status: Chronic Assessment and Plan: Sliding-scale insulin Qualifiers: Diabetes mellitus type: type 2 Diabetes mellitus fdc insulin use: with timber watchman use Diabetes mellitus complication status: without complication Qualified Code(s): E11.9 - Type 2 diabetes mellitus without complications; Z79.4 - penitentiary (current) use of insulin (7) Thrombocytopenia Priority: Secondary Status: Acute Assessment and Plan: stable during hospitalization. Hospital course: Mr. Tariq is a 53 year old male with a past medical history of Fibrillary glomerulonephritis and Lymphoma in remission since 2016. He presented to [place] ED on 05/23/18 per request of his data entry technician for worsening kidney function and decreased urine output. He presented with hyperkalemia (K 5.1) and acute kidney injury (Cr 1.93) without EKG changes. NANCY was treated with PO and IV fluid hydration and hyperkalemia treated with kayexelate. Patient's home lisinopril was held. NANCY workup was negative for any abnormalities on retroperiotoneal ultrasound. Creatinine decreased but did not complete resolve. Patient will continue to follow up with outpatient data entry technician for his underlying renal disease. 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 Oncology recommended continuing outpatient evaluation for his lymphoma. patient has an appointment with his oncologist on June 13. Patient stable on day of discharge. He was recommended to continue fluid hydration and to follow a low potassium diet. - Time Spent with Patient Total time spent providing and/or coordinating discharge services: - Discharge Medications Home Medications: Sertraline [Zoloft] 200 mg PO DAILY 03/18/15 [History] Tamsulosin [Flomax] 0.4 mg PO DAILY 03/18/15 [History] Fenofibrate [Lofibra] 160 mg PO DAILY 07/25/15 [History] HYDROcodone/Acet 7.5/325 mg [[place] 7.5-325 mg] 1 tab PO QID 05/21/17 [History] SitaGLIPtin [Januvia] 100 mg PO DAILY 05/21/17 [History] Tizanidine HCl [Zanaflex] 4 mg PO TID 05/21/17 [History] Aspirin [Adult Aspirin] 81 mg PO DAILY 03/09/18 [History] Atorvastatin [Lipitor] 40 mg PO HS 03/09/18 [History] Insulin Aspart Prot/Insuln Asp [Novolog Mix 70-30 Vial] 15 unit SQ QPM 03/09/18 [History] Insulin Aspart Prot/Insuln Asp [Novolog Mix 70-30 Vial] 20 unit SQ QAM 03/09/18 [History] Magnesium Oxide [Magnesium] 400 mg PO BID 03/09/18 [History] Lisinopril [Zestril] 10 mg PO DAILY 30 Days #30 tablet 03/15/18 [Rx] Metoprolol [Lopressor] 25 mg PO BID 30 Days #60 tablet 03/15/18 [Rx] Amlodipine Besylate 10 mg PO DAILY 05/23/18 [History] Febuxostat [Uloric] 40 mg PO DAILY 05/23/18 [History] Levothyroxine [Synthroid] 125 mcg PO QAM 05/23/18 [History] Allergies/Adverse Reactions: Allergy/AdvReac Type Severity Reaction Status Date / Time No Known Allergies Allergy Verified 05/21/17 12:01 Date of admission: 05/25/18 14:05 Primary care physician: Jeff Cordova MD Consults: 05/23/18 15:56 Consult to Nephrology [CONS] Routine Consulting Provider: Kidney Isabelle/ORIMI/PARG/BROWN Reason for Consult: hx fibrillary glomerulonephritis. presenting with NANCY. Call Completed: No 05/23/18 16:34 Consult to Nephrology [CONS] Stat Consulting Provider: Nicol Brewer Reason for Consult: Renal failure, hyperkalemia Dr. Metcalf Time Notified: 14:30 Call Completed: Yes 05/26/18 13:19 Consult to Oncology [CONS] Routine Consulting Provider: [facility] [place] Reason for Consult: Hx of lymphoma. Hx of fibrillary glomerulonephritis which arose likely secondary to lymphoma. Renal function worsening, consult to evaluate for underlying reemergence of malignancy. Call Completed: Yes Discharging clinician: Braulio Cervantes Anticipated date of discharge: 05/27/18 - Constitutional Vitals: Temp Pulse Resp BP Pulse Ox 97.9 F 64 16 125/80 95 05/26/18 11:12 05/26/18 11:12 05/26/18 11:12 05/26/18 11:12 05/26/18 11:12 General appearance: Present: A&O X 3 Exam: Constitutional: alert and oriented times 3. Chest: symmetrical expansion, no overlying echymosis or deformity, tenderness to palpation of the left chest wall Cardiovascular: regular rate and rhythm, no murmurs Respiratory: clear to auscultation bilaterally in all lung mercedes Abdomen: soft with mild tenderness to deep palpation Extremities: no cyanosis, clubbing, or edema Psych: pleasant, coherent thought process, fluent nonrapid speech. - Patient Status Disposition: Home, Self-Care Condition: Good Overall status at discharge: patient is progressing back to baseline - Ambulatory Orders Ambulatory Orders: Basic Metabolic Panel [CHEM] Time Frame: 1 Week, Facility: [facility], Location: Lab - Discharge Instructions Instructions: Acute Kidney Injury (DC), Potassium Content of Foods List (DC), Hyperkalemia (DC) Follow Up With: Nicol Brewer [Provider Group] (an appointment has been requested, the office will contact you at home to schedule an appointment.) Jeff Cordova MD [Primary Care Provider] - 06/03/18 12:00 pm Additional Instructions: Obtain lab work in one week. Follow up with your primary care provider in one week. Follow up with data entry technician in 1-3 weeks. Return to the emergency department if you note any fevers, chills, chest pain, shortness of breath, abdominal pain, nausea, vomiting, diarrhea, burning with urination, or color change of urine or any new or concerning symptoms. - Diet and Activity Activity: resume usual activities as tolerated Diet: other (low potassium diet) <Oscar Whelan - Last Filed: 05/27/18 11:18> Date of Encounter: 05/27/18 - Discharge Diagnosis (1) Hypertension Status: Chronic Qualifiers: Hypertension type: essential hypertension Qualified Code(s): I10 - Essential (primary) hypertension (2) Diabetes Status: Chronic Qualifiers: Diabetes mellitus type: type 2 Diabetes mellitus fdc insulin use: with timber watchman use Diabetes mellitus complication status: without complication Qualified Code(s): E11.9 - Type 2 diabetes mellitus without complications; Z79.4 - geoscience professor (current) use of insulin (3) Acute kidney injury Status: Acute (4) Hyperkalemia Status: Acute (5) Fibrillary glomerulonephritis Status: Chronic (6) Lymphoma in remission Status: Acute (7) Thrombocytopenia Status: Acute (8) Acute renal failure Priority: Primary Status: Suspected Qualifiers: Acute renal failure type: with acute tubular necrosis Qualified Code(s): N17.0 - Acute kidney failure with tubular necrosis Hospital course: Mr. Tariq is a 53 year old male - Time Spent with Patient Total time spent providing and/or coordinating discharge services: 38min Date of admission: 05/25/18 14:05 Primary care physician: Jeff Cordova MD Consults: 05/23/18 15:56 Consult to Nephrology [CONS] Routine Consulting Provider: Nicol Walton/MAC/OBIE Reason for Consult: hx fibrillary glomerulonephritis. presenting with NANCY. Call Completed: No 05/23/18 16:34 Consult to Nephrology [CONS] Stat Consulting Provider: Nicol Walton/CHARLY Reason for Consult: Renal failure, hyperkalemia Dr. Metcalf Time Notified: 14:30 Call Completed: Yes 05/26/18 13:19 Consult to Oncology [CONS] Routine Consulting Provider: [facility] Reason for Consult: Hx of lymphoma. Hx of fibrillary glomerulonephritis which arose likely secondary to lymphoma. Renal function worsening, consult to evaluate for underlying reemergence of malignancy. Call Completed: Yes - Constitutional Vitals: Temp Pulse Resp BP Pulse Ox 98.2 F 65 16 121/74 96 05/27/18 08:23 05/27/18 08:23 05/27/18 08:23 05/27/18 08:23 05/27/18 08:23 - Attending Attestation I examined this patient and my medical decision-making was reviewed with the Resident Physician on 05/27/18. I agree with the documented findings, disposition and treatment plan as described except to the extent set forth below. Mr Tariq has been admitted for acute renal failure. He has been treated with IV fluids and has had improvement. Due to his hx of lymphoma and fibrillary GN he will need close follow up. Today he feels well. He is tolerating diet. He is afebrile and ready for discharge home. Exam alert Comfortable Mucus membranes moist Heart reg and not tachy No wheeze Abd soft Edema present Plan D/C home today. Follow with oncology as arranged. Recheck renal function in a week.
--- NOTE | 2018-05-26 17:07 | Oncology Inp Consult Note ---
Date of Encounter: 05/26/18 Time of Encounter: 08:00 Assessment and Plan (1) Lymphoma, small lymphocytic Status: Chronic Assessment and plan: Patient was diagnosed by me few years ago and reports receiving chemotherapy closer to home. He had proteinuria at that time and treatment with rituximab was offered by us. He follows with CT imaging routinely with Dr. Walker at [place], [place]. He does not seem to have signs or symptoms of recurrence. He will f/u in with his local oncologist. He follows with nephrology through [place] [facility]. History as reported by patient updated and plan of care reviewed with him and family. - Data of Consult Requesting Physician: Oscar Whelan DO Primary Care Provider: Jeff Cordova MD - Consult Narrative Reason for consult: CLL/SLL History of present illness: 53 year-old male with medical history significant for irregular heart rhythm, diabetes mellitus, history of hypertension, history of heart attack, back pain, status post cardiac catheter in June 2012, who underwent biopsy of left axillary lymph node biopsy of which is consistent with CD5 positive B-cell CLL/SLL by flow cytometry revealed B-cell population was positive for CD19 and CD20, positive for CD23. Negative immunostain for CD38 weak expression for FMC 7. Patient developed some lab abnormalities, proteinuria, treatment was planned at that time with the possibility of nephrotic syndrome due to lymphoproliferative disorder. Patient had a CT chest that showed borderline lymphadenopathy in the mediastinum and in the axilla left axillary lymph node biopsy was performed that was consistent with SLL. He however lost follow-up and hematology is reconsulted as patient presents with acute kidney injury with chronic kidney disease. He denies B symptoms. He denies palpable adenopathy Patient reports that he has followed with oncology closer to home at [place]. He reports receiving 8 rounds of chemotherapy via a port. Past Med Surg Social Fam HX - Past Medical History Medical history: arthritis, coronary artery disease, DVT, GERD, hyperlipidemia, kidney stones, osteoporosis, renal disease, thyroid disease, other Additional medical history: hernia Psychiatric history: anxiety, depression - Past Surgical History Surgical History: other Additional surgical history: eye surgery as a child. - Social History Smoking Status: Former smoker Smokeless Tobacco Status: Yes Alcohol use: occasionally Drug use: none - Family History Father Adopted: Yes Mother Family Member Ethnicity: Non- Living Status: Still Living Medications and Allergies RX: Sertraline [Zoloft] 200 mg PO DAILY 03/18/15 [History] RX: Tamsulosin [Flomax] 0.4 mg PO DAILY 03/18/15 [History] RX: Fenofibrate [Lofibra] 160 mg PO DAILY 07/25/15 [History] RX: HYDROcodone/Acet 7.5/325 mg [[place] 7.5-325 mg] 1 tab PO QID 05/21/17 [History] RX: SitaGLIPtin [Januvia] 100 mg PO DAILY 05/21/17 [History] RX: Tizanidine HCl [Zanaflex] 4 mg PO TID 05/21/17 [History] RX: Aspirin [Adult Aspirin] 81 mg PO DAILY 03/09/18 [History] RX: Atorvastatin [Lipitor] 40 mg PO HS 03/09/18 [History] RX: Insulin Aspart Prot/Insuln Asp [Novolog Mix 70-30 Vial] 15 unit SQ QPM 03/09/18 [History] RX: Insulin Aspart Prot/Insuln Asp [Novolog Mix 70-30 Vial] 20 unit SQ QAM 03/09/18 [History] RX: Magnesium Oxide [Magnesium] 400 mg PO BID 03/09/18 [History] RX: Lisinopril [Zestril] 10 mg PO DAILY 30 Days #30 tablet 03/15/18 [Rx] RX: Metoprolol [Lopressor] 25 mg PO BID 30 Days #60 tablet 03/15/18 [Rx] Febuxostat [Uloric] 40 mg PO DAILY 05/23/18 [History] Levothyroxine [Synthroid] 125 mcg PO QAM 05/23/18 [History] RX: Amlodipine Besylate 10 mg PO DAILY 05/23/18 [History] Allergy/AdvReac Type Severity Reaction Status Date / Time No Known Allergies Allergy Verified 05/21/17 12:01 All systems: reviewed and no additional remarkable complaints except as stated Additional comments: denies fatigue, weight loss or easy bruisability. He denies palpable lumps, night swears or fevers. Denies abdominal or chest pain or SOB. Denies headaches or neurological symptoms Oncology - Exam - Constitutional General appearance: cooperative, no acute distress, obese - Head Head exam: Present: atraumatic, normal inspection - Eye Eye exam: Present: sclera anicteric - ENT ENT exam: Present: mucous membranes moist - Neck Neck exam: Present: full ROM, normal inspection - Respiratory Respiratory exam: Present: CTAB - Cardiovascular Cardiovascular exam: Present: +S1, +S2 - GI/Abdominal GI/Abdominal exam: Present: distended, normal bowel sounds, soft - Extremities Exam Extremities exam: Present: full ROM, normal inspection - Neurological Exam Neurological exam: Present: alert, CN II-XII intact, oriented X3, no focal deficits - Psychiatric Psychiatric exam: Present: normal affect - Skin Skin exam: Present: dry, normal color Oncology Inpatient Results CT abd 01/20 reviewed Consult Discharge Plan - Plan Instructions: Potassium Content of Foods List (DC) Referrals: Jeff Cordova MD [Primary Care Provider] - 06/03/18 12:00 pm Inpatient Charges Provider: Dr. Dustin Angeles Consult - Inpatient: [id number]
[2018-05-26] MEDS: Insulin DETEMIR 100 UNIT/ML X5UNITS SQ SCH (21:03)
[2018-05-27 04:20] LABS: Hemoglobin 11.5 g/dL (12.9-16.9); Mean Platelet Volume 10.5 fL (9.4-12.4)
[2018-05-27 04:21] LABS: Basophils % 1.1 %; Eosinophils # 0.3 K/mcL (0.0-0.6); Eosinophils % 7.8 %; Immature Platelets 3.2 % (1.1-6.1); Lymphocytes # 0.9 K/mcL (0.6-4.6); Lymphocytes % 24.3 %; Mean Corpuscular HGB Conc 33.8 g/dL (31.6-35.5); Mean Corpuscular Hemoglobin 30.3 pg (28.0-33.3); Mean Corpuscular Volume 89.7 fL (83.0-100.0); Monocytes # 0.4 K/mcL (0.0-1.3); Monocytes % 11.2 %; Neutrophils # 1.9 K/mcL (1.6-8.9); Red Blood Count 3.79 M/mcL (4.19-5.50); Red Cell Distribution Width 13.7 % (11.5-14.5); Segmented Neutrophils % 53.6 %
[2018-05-27 04:27] LABS: Platelet Count 93 K/mcL (140-400)
[2018-05-27 04:29] LABS: Calcium 9.8 mg/dL (8.6-10.3); Magnesium 1.6 mg/dL (1.6-2.6); Potassium 5.2 mEq/L (3.5-5.1)
[2018-05-27] MEDS: *HR* Heparin 5,000 UNIT/ML VIAL SQ SCH (05:43)
[2018-05-27 08:24] VITALS: BP 121/74
[2018-05-27] MEDS: Insulin LISPRO 300 UNITS/3 ML VIAL SQ SCH (08:25)
[2018-05-27] MEDS: Fenofibrate 54 MG TABLET PO SCH (08:35)
[2018-05-27] MEDS: Aspirin Enteric Coated 81 MG Tablet PO SCH (08:35)
[2018-05-27] MEDS: tiZANidine 4 MG TABLET PO SCH (08:35)
[2018-05-27] MEDS: amLODIPine 5 MG TABLET PO SCH (08:36)
== END 2018-05-27 11:08 | disposition home or self-care (01) | DRG 683 ==
LOC: 3BNU 11:07 → EMEROOARM 11:07 → SUATTDRO 14:34 → 3BNU 15:42
PROVIDERS: ADMIT Internal Medicine; ATTEND Internal Medicine

== ENCOUNTER 2019-01-26 20:33 | Inpatient (IN) ==
[2019-01-27] MEDS ORDERED: Naloxone 0.4 MG/ML INJ IVP PRN (04:21)
[2019-01-27] MEDS ORDERED: Acetaminophen 325 MG TABLET PO PRN (04:21)
[2019-01-27] MEDS ORDERED: D5% in Water 1,000 ML IVC PRN (04:49)
[2019-01-27] MEDS ORDERED: *HR* Dextrose 50 % in Water (Syg) 50 ML SYRINGE IVP PRN (04:49)
[2019-01-27] MEDS ORDERED: Dextrose Gel 15 GM/37.5 ML TUBE PO PRN ×2 (04:49)
[2019-01-27 05:21] LABS: White Blood Count 3.6 K/mcL (4.3-11.1)
[2019-01-27 05:22] LABS: Basophils % 0.8 %; Eosinophils # 0.2 K/mcL (0.0-0.6); Eosinophils % 5.6 %; Hematocrit 32.7 % (37.5-50.1); Hemoglobin 11.2 g/dL (12.9-16.9); Immature Granulocytes % 0.6 % (0-4); Lymphocytes # 1.1 K/mcL (0.6-4.6); Lymphocytes % 29.6 %; Mean Corpuscular HGB Conc 34.3 g/dL (31.6-35.5); Mean Corpuscular Hemoglobin 30.7 pg (28.0-33.3); Mean Corpuscular Volume 89.6 fL (83.0-100.0); Mean Platelet Volume 11.5 fL (9.4-12.4); Monocytes # 0.4 K/mcL (0.0-1.3); Monocytes % 12.1 %; Red Blood Count 3.65 M/mcL (4.19-5.50); Red Cell Distribution Width 14.6 % (11.5-14.5); Segmented Neutrophils % 51.3 %
[2019-01-27 05:23] LABS: Neutrophils # 1.9 K/mcL (1.6-8.9); Platelet Count 67 K/mcL (140-400)
[2019-01-27] MEDS: *HR* Heparin 5,000 UNIT/ML VIAL SQ SCH ×3 (05:30→21:49)
[2019-01-27 05:41] LABS: Calcium 9.2 mg/dL (8.6-10.3); Magnesium 1.9 mg/dL (1.6-2.6); Potassium 5.7 mEq/L (3.5-5.1)
[2019-01-27] MEDS: Insulin LISPRO 300 UNITS/3 ML VIAL SQ SCH ×3 (08:03→18:25)
[2019-01-27 08:17] LABS: Uric Acid 7.7 mg/dL (2.3-7.6)
[2019-01-27] MEDS: Fenofibrate 54 MG TABLET PO SCH (08:31)
[2019-01-27] MEDS: Magnesium Oxide 400 MG TABLET PO SCH ×2 (08:31→21:47)
[2019-01-27] MEDS: amLODIPine 5 MG TABLET PO SCH (08:31)
[2019-01-27] MEDS: tiZANidine 4 MG TABLET PO SCH ×3 (08:32→21:48)
[2019-01-27] MEDS: *HR* HYDROcodone/Acet 7.5/325 mg TABLET PO PRN ×2 (15:00→21:49)
[2019-01-27] MEDS ORDERED: Sodium Bicarbonate 150 MEQ in D5% in Water 1,000 ML IVC SCH (17:00)
[2019-01-27] MEDS: *HR* LORazepam 1 MG TABLET PO SCH (21:47)
[2019-01-27] MEDS: Insulin DETEMIR 100 UNIT/ML X5UNITS SQ SCH (21:48)
[2019-01-27] MEDS: Ondansetron 4 MG/2 ML VIAL IVP PRN (22:20)
[2019-01-28] MEDS ORDERED: Acetaminophen IV 500 MG/50 ML INFUS..BTL IVPB ONE (01:16)
[2019-01-28 01:31] LABS: Mean Corpuscular Volume 90.8 fL (83.0-100.0); Mean Platelet Volume 10.3 fL (9.4-12.4)
[2019-01-28 01:33] LABS: Basophils % 0.7 %; Eosinophils # 0.3 K/mcL (0.0-0.6); Eosinophils % 7.3 %; Hematocrit 33.6 % (37.5-50.1); Hemoglobin 11.3 g/dL (12.9-16.9); Immature Granulocytes % 0.7 % (0-4); Immature Platelets 4.2 % (1.1-6.1); Lymphocytes # 1.4 K/mcL (0.6-4.6); Lymphocytes % 32.4 %; Mean Corpuscular HGB Conc 33.6 g/dL (31.6-35.5); Mean Corpuscular Hemoglobin 30.5 pg (28.0-33.3); Monocytes # 0.5 K/mcL (0.0-1.3); Monocytes % 11.3 %; Red Cell Distribution Width 14.2 % (11.5-14.5); Segmented Neutrophils % 47.6 %; White Blood Count 4.2 K/mcL (4.3-11.1)
[2019-01-28 01:34] LABS: Platelet Count 64 K/mcL (140-400)
[2019-01-28 01:35] LABS: Potassium,Urine 24.5 mEq/L; Sodium, Urine 87.2 mEq/L
[2019-01-28 01:53] LABS: BUN/Creatinine Ratio 35 (6-26); Blood Urea Nitrogen 48 mg/dL (6-20); Carbon Dioxide 21 mEq/L (23-29); Chloride 113 mEq/L (98-107); Glucose 134 mg/dL (70-105); Magnesium 1.7 mg/dL (1.6-2.6); Osmolality,Calculated 301 (280-300); Potassium 5.2 mEq/L (3.5-5.1); Sodium 138 mEq/L (136-145); eGFR For African Americans > 60 (> 60); eGFR For Non-African Americans 54 (> 60)
[2019-01-28] MEDS: *HR* Heparin 5,000 UNIT/ML VIAL SQ SCH (05:46)
[2019-01-28] MEDS: Insulin LISPRO 300 UNITS/3 ML VIAL SQ SCH ×3 (08:25→16:21)
[2019-01-28] MEDS: Fenofibrate 54 MG TABLET PO SCH (08:39)
[2019-01-28] MEDS: *HR* HYDROcodone/Acet 7.5/325 mg TABLET PO PRN ×3 (08:40→19:54)
[2019-01-28] MEDS: amLODIPine 5 MG TABLET PO SCH (08:40)
[2019-01-28] MEDS: tiZANidine 4 MG TABLET PO SCH ×3 (08:41→19:52)
[2019-01-28] MEDS: Magnesium Oxide 400 MG TABLET PO SCH ×2 (08:41→19:52)
[2019-01-28] MEDS ORDERED: NON-FORMULARY MEDICATION 1 EACH EACH (Pantoprazole Sodium 40 MG) PO SCH (09:00)
[2019-01-28] MEDS ORDERED: NON-FORMULARY MEDICATION 1 EACH EACH (Febuxostat [Uloric] 40 MG) PO SCH (09:00)
[2019-01-28 11:22] LABS: Estimated Average Glucose 117 mg/dl
[2019-01-28] MEDS: Insulin DETEMIR 100 UNIT/ML X5UNITS SQ SCH (19:52)
[2019-01-28] MEDS: *HR* LORazepam 1 MG TABLET PO SCH (19:52)
[2019-01-29 05:18] LABS: Basophils # 0.1 K/mcL (0.0-0.2); Basophils % 1.3 %; Eosinophils # 0.4 K/mcL (0.0-0.6); Eosinophils % 9.7 %; Hematocrit 34.5 % (37.5-50.1); Hemoglobin 11.3 g/dL (12.9-16.9); Immature Granulocytes % 0.8 % (0-4); Immature Platelets 5.5 % (1.1-6.1); Lymphocytes # 1.1 K/mcL (0.6-4.6); Lymphocytes % 29.9 %; Mean Corpuscular HGB Conc 32.8 g/dL (31.6-35.5); Mean Corpuscular Hemoglobin 29.8 pg (28.0-33.3); Mean Platelet Volume 9.9 fL (9.4-12.4); Monocytes # 0.5 K/mcL (0.0-1.3); Monocytes % 12.3 %; Neutrophils # 1.8 K/mcL (1.6-8.9); Platelet Count 61 K/mcL (140-400); Red Blood Count 3.79 M/mcL (4.19-5.50); Red Cell Distribution Width 14.1 % (11.5-14.5); White Blood Count 3.8 K/mcL (4.3-11.1)
[2019-01-29 05:34] LABS: BUN/Creatinine Ratio 28 (6-26); Blood Urea Nitrogen 39 mg/dL (6-20); Calcium 9.1 mg/dL (8.6-10.3); Carbon Dioxide 25 mEq/L (23-29); Chloride 110 mEq/L (98-107); Glucose 85 mg/dL (70-105); Magnesium 1.8 mg/dL (1.6-2.6); Osmolality,Calculated 297 (280-300); Potassium 5.7 mEq/L (3.5-5.1); Sodium 139 mEq/L (136-145); eGFR For African Americans > 60 (> 60); eGFR For Non-African Americans 53 (> 60)
[2019-01-29] MEDS: Insulin LISPRO 300 UNITS/3 ML VIAL SQ SCH ×3 (07:31→17:17)
[2019-01-29] MEDS: amLODIPine 5 MG TABLET PO SCH (08:14)
[2019-01-29] MEDS: Fenofibrate 54 MG TABLET PO SCH (08:14)
[2019-01-29] MEDS: Magnesium Oxide 400 MG TABLET PO SCH ×2 (08:14→19:37)
[2019-01-29] MEDS: tiZANidine 4 MG TABLET PO SCH ×3 (08:15→19:37)
[2019-01-29] MEDS: *HR* HYDROcodone/Acet 7.5/325 mg TABLET PO PRN ×2 (08:17→19:40)
[2019-01-29] MEDS: Insulin DETEMIR 100 UNIT/ML X5UNITS SQ SCH (19:16)
[2019-01-29] MEDS: *HR* LORazepam 1 MG TABLET PO SCH (19:37)
[2019-01-30 05:15] LABS: BUN/Creatinine Ratio 27 (6-26); Blood Urea Nitrogen 40 mg/dL (6-20); Calcium 9.4 mg/dL (8.6-10.3); Carbon Dioxide 26 mEq/L (23-29); Chloride 110 mEq/L (98-107); Glucose 87 mg/dL (70-105); Osmolality,Calculated 301 (280-300); Potassium 6.1 mEq/L (3.5-5.1); Sodium 141 mEq/L (136-145); eGFR For African Americans > 60 (> 60); eGFR For Non-African Americans 51 (> 60)
[2019-01-30] MEDS ORDERED: Calcium Gluconate 2,000 MG in 0.9 % Sodium Chloride 100 ML IVPB ONE (07:26)
[2019-01-30] MEDS ORDERED: Sodium Bicarbonate 50 MEQ/50 ML VIAL IVP ONE (08:45)
[2019-01-30] MEDS: amLODIPine 5 MG TABLET PO SCH (09:09)
[2019-01-30] MEDS: Magnesium Oxide 400 MG TABLET PO SCH ×2 (09:12→21:49)
[2019-01-30] MEDS: tiZANidine 4 MG TABLET PO SCH ×3 (09:12→21:48)
[2019-01-30] MEDS: Fenofibrate 54 MG TABLET PO SCH (09:12)
[2019-01-30] MEDS: Insulin LISPRO 300 UNITS/3 ML VIAL SQ SCH ×3 (09:40→16:32)
[2019-01-30] MEDS: *HR* HYDROcodone/Acet 7.5/325 mg TABLET PO PRN ×3 (09:41→22:06)
[2019-01-30] MEDS: Furosemide 20 MG TABLET PO SCH (16:48)
[2019-01-30] MEDS: Insulin DETEMIR 100 UNIT/ML X5UNITS SQ SCH (21:15)
[2019-01-30] MEDS: *HR* LORazepam 1 MG TABLET PO SCH (21:49)
[2019-01-30] MEDS ORDERED: Acetaminophen IV 500 MG/50 ML INFUS..BTL IVPB ONE (23:26)
[2019-01-31] MEDS: Ondansetron 4 MG/2 ML VIAL IVP PRN (01:17)
[2019-01-31 03:29] VITALS: BP 134/88
[2019-01-31 03:35] LABS: Basophils # 0.1 K/mcL (0.0-0.2); Eosinophils # 0.4 K/mcL (0.0-0.6); Eosinophils % 8.4 %; Hematocrit 34.3 % (37.5-50.1); Hemoglobin 11.6 g/dL (12.9-16.9); Immature Platelets 4.8 % (1.1-6.1); Lymphocytes # 1.6 K/mcL (0.6-4.6); Lymphocytes % 32.8 %; Mean Corpuscular HGB Conc 33.8 g/dL (31.6-35.5); Mean Corpuscular Hemoglobin 30.6 pg (28.0-33.3); Mean Corpuscular Volume 90.5 fL (83.0-100.0); Mean Platelet Volume 11.1 fL (9.4-12.4); Monocytes # 0.6 K/mcL (0.0-1.3); Monocytes % 11.7 %; Neutrophils # 2.2 K/mcL (1.6-8.9); Red Blood Count 3.79 M/mcL (4.19-5.50); Red Cell Distribution Width 13.7 % (11.5-14.5); Segmented Neutrophils % 45.1 %; White Blood Count 4.8 K/mcL (4.3-11.1)
[2019-01-31 03:38] LABS: Platelet Count 63 K/mcL (140-400); Platelet Estimate Marked Decrease (Normal)
[2019-01-31] MEDS: *HR* HYDROcodone/Acet 7.5/325 mg TABLET PO PRN (03:53)
[2019-01-31 03:58] LABS: Calcium 9.4 mg/dL (8.6-10.3); Potassium 5.1 mEq/L (3.5-5.1)
[2019-01-31] MEDS: Insulin LISPRO 300 UNITS/3 ML VIAL SQ SCH (09:20)
[2019-01-31] MEDS: Fenofibrate 54 MG TABLET PO SCH (09:22)
[2019-01-31] MEDS: amLODIPine 5 MG TABLET PO SCH (09:22)
[2019-01-31] MEDS: Furosemide 20 MG TABLET PO SCH (09:23)
[2019-01-31] MEDS: tiZANidine 4 MG TABLET PO SCH (09:23)
[2019-01-31] MEDS: Magnesium Oxide 400 MG TABLET PO SCH (09:23)
== END 2019-01-31 11:58 | disposition home or self-care (01) | DRG 641 ==
LOC: 3BNU
PROVIDERS: ADMIT Pharmacist; ATTEND Student in an Organized Health Care Education/Training Program